=== PATIENT | female | born 2000 | race Caucasian/White ===

== ENCOUNTER 2020-11-22 16:49 | Emergency (ER) | payer SELFPAY ==
[2020-11-22 17:30] VITALS: BP 140/89; PULSE 111; RESP 16; TEMP 36.9; O2SAT 99
--- NOTE | 2020-11-22 17:36 | ECG_ITS ---
Measurements Intervals [place] Rate: 130 P: 51 AL: 154 QRS: 89 QRSD: 94 T: 17 QT: 316 QTc: 465 Interpretive Statements SINUS TACHYCARDIA BORDERLINE ST-T WAVE ABNORMALITY- INFERIOR LEADS ABNORMAL ECG Electronically Signed On 11-22-2020 19:02:53 CDT by Brian Sharma D.O.
--- NOTE | 2020-11-22 17:52 | PC.NURSE ---
pt states she is going to go home for now and see if she feels any better
== END 2020-11-22 17:54 | disposition left against medical advice (07) ==
PROVIDERS: Emergency Provider Family Medicine
DX: R55 Syncope and collapse (principal)
CPT/HCPCS: 93005; 99199

== ENCOUNTER 2022-02-23 10:06 | Outpatient (CLI) | payer BC, SELFPAY ==
[2022-02-23 11:01] LABS: Basophils Percent Auto 0.6 % (0.2-1.2); Eosinophils Absolute Auto 0.1 K/mm3 (0-0.3); Eosinophils Percent Auto 1.1 % (0-4.4); Hematocrit 43.2 % (37.0-47.0); Hemoglobin 14.6 g/dL (12.0-15.0); Immature Granulocyte Absolute 0.03 K/mm3 (0.00-0.031); Immature Granulocyte Percent A 0.5 % (0-0.5); Lymphocytes Absolute Auto 2.32 K/mm3 (0.9-3.2); Lymphocytes Percent Auto 36.9 % (18.3-44.2); Mean Corpuscular HGB Conc 33.8 g/dl (32-36); Mean Corpuscular Hemoglobin 28.2 pg (26-34); Mean Corpuscular Volume 83.4 fl (80-100); Mean Platelet Volume 9.7 fl (7.4-10.4); Monocytes Absolute Auto 0.5 K/mm3 (0.1-0.6); Monocytes Percent Auto 8.1 % (2.6-8.5); Neutrophils Absolute Auto 3.3 K/mm3 (1.3-6.7); Neutrophils Percent Auto 52.8 % (45.5-73.1); Platelet Count Result 310 k/mm3 (150-375); Red Blood Count 5.18 M/mm3 (4.2-5.4); Red Cell Distribution Width 12.9 % (11.5-14.5); White Blood Count 6.3 K/mm3 (4.5-10.0)
[2022-02-23 11:09] LABS: Hemoglobin A1C 5.2 % (<5.7)
[2022-02-23 11:13] LABS: Iron 70 ug/dL (37-170)
[2022-02-23 11:14] LABS: Cholesterol 244 mg/dL (0-200); HDL Direct 35 mg/dL; Triglycerides 243 mg/dL (<150)
[2022-02-23 11:25] LABS: Percent Iron Saturation 18 % (20-50)
[2022-02-23 11:26] LABS: LDL Cholesterol Direct 128 mg/dL
[2022-02-23 11:31] LABS: Beta HCG Quantitative < 2.39 mIU/ML
[2022-02-23 11:32] LABS: Free T4 Free Thyroxine 1.24 ng/mL (0.78-2.19)
[2022-02-27 05:01] LABS: FSH 6.3 mIU/mL (***); Progesterone 0.5 ng/mL (***); Prolactin 11.7 ng/mL (***); Triiodothyronine T3 Free 3.3 pg/mL (2.3-4.2)
[2022-02-27 11:42] LABS: DHEA-Sulfate 289 mcg/dL (51-321); Insulin Level Total 15.9 uIU/mL (<=19.6)
[2022-03-02 03:42] LABS: Estradiol, Ultrasensitive 55 pg/mL
[2022-03-02 17:03] LABS: Testosterone Free 4.9 pg/mL (0.1-6.4); Testosterone Total 32 ng/dL (2-45)
[2022-03-08 04:30] LABS: Thyroid Peroxidase Antibodies <1 IU/mL (<9)
== END 2022-02-23 10:07 | disposition home or self-care (01) ==
LOC: ANHLAB 10:08
PROVIDERS: Visit Provider Obstetrics & Gynecology
DX: E28.2 Polycystic ovarian syndrome (principal); N92.6 Irregular menstruation, unspecified
CPT/HCPCS: 36415; 80061; 82627; 82670; 82728; 83001; 83036; 83498; 83525; 83527; 83540; 83550; 84144; 84146; 84402; 84403; 84439; 84443; 84481; 84702; 85025; 86376

== ENCOUNTER 2024-08-09 12:40 | Outpatient (CLI) | payer BC, SELFPAY ==
--- OUTSIDE RECORDS SUMMARY | 2024-08-09 12:45 | XMS_ITS | Clinical Summary ---
Author Organization [facility] Address [address] [place] [address] Care Team Providers Care Reading Efficiency Course Director Name Role Phone Non-Staff, Provider Primary Care Provider Jacki gomez Allergies No known active allergies Medications lansoprazole (PREVACID SOLUTAB) 30 MG disintegrating tablet Take 1 tablet (30 mg total) by mouth daily. Active metFORMIN (GLUCOPHAGE) 500 MG tablet TAKE 1 TABLET BY MOUTH EVERY EVENING FOR 1 WEEK THEN INCREASE TO 1 TABLET BY MOUTH TWICE DAILY THEREAFTER. Active cetirizine (ZYRTEC) 10 MG tablet Take 1 tablet (10 mg total) by mouth daily. Active fish oil (OMEGA-3 FATTY ACID) 1000 MG Cap capsule Take 2 capsules (2,000 mg total) by mouth daily. Active cholecalciferol (VITAMIN D-[address]) 25 mcg Tab tablet Take by mouth daily. Active Encounters Date Type Department Care Team Description 05/28/2024 3:35 PM BUSINESS SUPERVISOR - 05/28/2024 7:59 PM BUSINESS SUPERVISOR Emergency [facility] [place] [address] Oneyda Rudd PA Musculoskeletal Problem Discharge Disposition: Home or Self Care (Routine Discharge) 05/28/2024 Travel 05/25/2024 8:12 PM BUSINESS SUPERVISOR - 05/25/2024 9:55 PM [facility] Emergency [facility] Emergency [address] [place], [place] [address] Dakota Glass PA-C Diarrhea Discharge Disposition: Home or Self Care (Routine Discharge) 05/25/2024 Travel from Last 3 Months Social History Tobacco Use Types Packs/Day Years Used Date Smoking Tobacco: Never Smokeless Tobacco: Never Tobacco Cessation:Counseling Given: Not Answered Alcohol Use Standard Drinks/Week Comments Never 0 (1 standard drink = 0.6 oz pur e alcohol) Comments No Sex and Gender Information Value Date Recorded Sex Assigned at Female 04/07/2024 10:01 PM BUSINESS SUPERVISOR Legal Sex Female 5:48 PM CDT Gender Identity Not on file Sexual Orientation Not on file Last Filed Vital Signs Vital Sign Reading Time Taken Comments Blood Pressure 104/65 05/28/2024 7:39 PM BUSINESS SUPERVISOR Pulse 71 05/28/2024 7:39 PM BUSINESS SUPERVISOR Temperature 36.4 C (97.6 F) 05/28/2024 7:39 PM BUSINESS SUPERVISOR Respiratory Rate 16 05/28/2024 7:39 PM BUSINESS SUPERVISOR Oxygen Saturation 98% 05/28/2024 7:39 PM BUSINESS SUPERVISOR Inhaled Oxygen Concentration - - Weight 121.4 kg (267 lb 10.2 oz) 05/28/2024 2:51 PM BUSINESS SUPERVISOR Height 172.7 cm (5' 8 ) 05/28/2024 2:5 1 PM BUSINESS SUPERVISOR Body Mass Index 40.69 05/28/2024 2:51 PM BUSINESS SUPERVISOR Plan of Treatment Health Maintenance Due Date Last Done Comments Cervical Cancer Screening Pap Smear (Age 21 to 29) Every 3 Years 2000 Cervical Cancer Screening 2000 Hepatitis B Vaccines (4 of 4 - 4-dose series) 03/11/2001 01/09/2001, 2000, 2000 Annual Physical 09/10/2003 HPV Vaccines (1 - 3-dose series) 09/10/2015 Chlamydia Screening Females ages 16-24 2016 Meningococcal B Vaccine (1 of 2 - Standard) 2016 Hepatitis C 2018 COVID-19 Vaccine (2 - season) 2023 07/01/2020 DTaP, Tdap and Td Vaccines (8 - Td or Tdap) 10/11/2032 10/11/2022, 10/01/2011, 11/22/2005, Additional history exists Pneumococcal Vaccine: Pediatrics (0 to 5 Years) and At-Risk Patients (6 to 49 Years) Aged Out 08/13/2002, 03/12/2001, 02/04/2001, Additional history exists No longer eligible based on patient's age to complete this topic Meningococcal Vaccine Completed 10/22/2017, 012 RSV Immunizations Under 20 Months Aged Out No longer eligible based on patient's age to complete this topic Procedures Procedure Name Priority Date/Time Associated Diagnosis Comments HC URINALYSIS AUTO W/O MICRO STAT 05/28/2024 3:47 PM BUSINESS SUPERVISOR POCT URINE (BACK OFFICE) STAT 05/28/2024 3:46 PM BUSINESS SUPERVISOR CBC W/DIFF AUTOMATED Routine 05/28/2024 3:46 PM BUSINESS SUPERVISOR THYROXINE, FREE (FT4) STAT 05/28/2024 3:46 PM BUSINESS SUPERVISOR THYROID STIM HORMONE TSH STAT 05/28/2024 3:46 PM BUSINESS SUPERVISOR MAGNESIUM STAT 05/28/2024 3:46 PM BUSINESS SUPERVISOR CK (CPK) STAT 05/28/2024 3:46 PM BUSINESS SUPERVISOR COMPREHENSIVE METABOLIC PANEL STAT 05/28/2024 3:46 PM BUSINESS SUPERVISOR COMPREHENSIVE METABOLIC PANEL STAT 05/25/2024 8:40 PM BUSINESS SUPERVISOR CBC W/DIFF AUTOMATED STAT 05/25/2024 8:40 PM BUSINESS SUPERVISOR from Last 3 Months Results * (ABNORMAL) URINALYSIS (05/28/2024 3:47 PM BUSINESS SUPERVISOR) SPECIMEN TYPE URINE CLEAN CATCH 05/28/2024 3:47 PM BUSINESS SUPERVISOR [facility] COLOR (U) COLORLESS 05/28/2024 4:02 PM BUSINESS SUPERVISOR [facility] TRANSPARENCY CLEAR 05/28/2024 4:02 PM BUSINESS SUPERVISOR [facility] SPECIFIC GRAVITY (U) 1.008 1.001 - 1.030 05/28/2024 4:02 PM [facility] U PH 5.5 5.0 - 9.0 05/28/2024 4:02 PM [facility] LEUKOCYTES (U) NEGATIVE NEGATIVE 05/28/2024 4:02 PM [facility] NITRITES NEGATIVE NEGATIVE 05/28/2024 4:02 PM [facility] PROTEIN RANDOM (U) NEGATIVE <30 MG/DL 05/28/2024 4:02 PM [facility] GLUCOSE (U) NORMAL NORMAL MG/DL 05/28/2024 4:02 PM [facility] KETONES MG/DL (U) NEGATIVE NEGATIVE MG/DL 05/28/2024 4:02 PM [facility] UROBILINOGEN NORMAL NORMAL MG/DL 05/28/2024 4:02 PM [facility] BILIRUBIN (U) NEGATIVE NEGATIVE MG/DL 05/28/2024 4:02 PM [facility] BLOOD (U) 1+(A) NEGATIVE 05/28/2024 4:02 PM [facility] MUCUS RARE /LPF 05/28/2024 4:02 PM [facility] WBC/HPF 1 <6 /HPF 05/28/2024 4:02 PM [facility] RBC/HPF 2 <6 /HPF 05/28/2024 4:02 PM [facility] BACTERIA (U) RARE(A) NONE /HPF 05/28/2024 4:02 PM [facility] SQUAMOUS EPITHELIALS RARE /HPF 05/28/2024 4:02 PM [facility] URINE SPECIMEN OBTAINED BY CLEAN CATCH PROCEDURE / Unknown 05/28/2024 3:47 PM BUSINESS SUPERVISOR Diann MARKS URINE ORDERABLES Final Result [facility] [address] [place] [address], [place] [phone] * POCT urine (05/28/2024 3:46 PM BUSINESS SUPERVISOR) URINE HCG TEST NEGATIVE Internal Control: VALID Diann MARKS POINT OF CARE TEST ORDERABLES Final Result * (ABNORMAL) COMPREHENSIVE METABOLIC PANEL (05/28/2024 3:46 PM BUSINESS SUPERVISOR) Only the most recent of2 resultswithin the time period is included. GLUCOSE 90 70 - 99 MG/DL 05/28/2024 4:32 PM BUSINESS SUPERVISOR [facility] BUN 16 7 - 18 MG/DL 05/28/2024 4:32 PM BUSINESS SUPERVISOR [facility] CREATININE S/P/B 0.89 0.55 - 1.02 MG/DL 05/28/2024 4:32 PM BUSINESS SUPERVISOR [facility] SODIUM S/P/B 135(L) 136 - 145 MMOL/L 05/28/2024 4:32 PM BUSINESS SUPERVISOR [facility] POTASSIUM S/P/B 4.4 3.5 - 5.1 MMOL/L 05/28/2024 4:32 PM BUSINESS SUPERVISOR [facility] Comment:SLIGHT HEMOLYSIS, RE SULT MAY BE AFFECTED. CHLORIDE S/P/B 105 97 - 115 MMOL/L 05/28/2024 4:32 PM BUSINESS SUPERVISOR [facility] CO2 27.0 21 - 32 MMOL/L 05/28/2024 4:32 PM [facility] CALCIUM S/P/B 9.2 8.5 - 10.1 MG/DL 05/28/2024 4:32 PM [facility] BILIRUBIN TOTAL S/P/B 0.4 0.2 - 1.2 MG/DL 05/28/2024 4:32 PM [facility] Comment: THIS ASSAY IS NOT RECOMMENDED FOR PATIENTS UNDERGOING TREATMENT WITH ELTROMBOPAG DUE TO THE POTENTIAL FOR FALSELY ELEVATED RESULTS. TOTAL PROTEIN S/P/B 8.2 6.4 - 8.2 G/DL 05/28/2024 4:32 PM [facility] ALBUMIN S/P/B 4.0 3.4 - 5.0 G/DL 05/28/2024 4:32 PM [facility] AST 26 15 - 37 U/L 05/28/2024 4:32 PM [facility] Comment:SLIGHT HEMOLYSIS, RE SULT MAY BE AFFECTED. ALT 26 14 - 55 U/L 05/28/2024 4:32 PM [facility] ALKALINE PHOSPHATASE S/P/B 88 50 - 136 U/L 05/28/2024 4:32 PM [facility] ANION GAP 3.0 2 - 10 MMOL/L 05/28/2024 4:32 PM [facility] BUN CREATININE RATIO 17.9 6 - 26 05/28/2024 4:32 PM [facility] A/G RATIO 1.0 1.0 - 2.0 RATIO 05/28/2024 4:32 PM [facility] GFR ESTIMATE >90 >90 ML/MIN/1.7 3 M2 05/28/2024 4:32 PM [facility] Comment: NOTE: eGFR is not calculated for patients <18 years of age or gender unknown. This is an estimated GFR calculation using the new CKD EPI creatinine equation without race and so does not require a correction factor for race. This estimated GFR should not be used for calculating drug doses. 05/28/2024 3:46 PM BUSINESS SUPERVISOR Diann MARKS LABORATORY Final Result [facility] [address] [place] [address], [place] [phone] * CBC W/DIFF AUTOMATED (05/28/2024 3:46 PM BUSINESS SUPERVISOR) Only the most recent of2 resultswithin the time period is included. Pathologist [facility] WBC 8.02 4.50 - 11.00 x10'3/uL 05/28/2024 5:55 PM [facility] RBC 5.22 4.20 - 5.40 x10'6/uL 05/28/2024 5:55 PM [facility] HGB 14.7 12.0 - 16.0 G/DL 05/28/2024 5:55 PM [facility] HCT 44.0 38.0 - 48.0 % 05/28/2024 5:55 PM [facility] MCV 84.3 81.0 - 99.0 FL 05/28/2024 5:55 PM [facility] MCH 28.2 27.0 - 31.0 PG 05/28/2024 5:55 PM [facility] MCHC 33.4 32.0 - 36.0 G/DL 05/28/2024 5:55 PM [facility] RDW 12.4 11.5 - 14.5 % 05/28/2024 5:55 PM [facility] PLT 344 130 - 400 x10'3/uL 05/28/2024 5:55 PM [facility] MPV 9.9 9.3 - 12.2 FL 05/28/2024 5:55 PM [facility] CBC COMMENT AUTOMATED RBC MORPHOLOGY AND PLATELET EVALUATION NORMAL 05/28/2024 5:55 PM [facility] NEUTROPHILS % 64.3 % 05/28/2024 5:55 PM [facility] LYMPHOCYTES % 27.1 % 05/28/2024 5:55 PM [facility] MONOCYTES % 6.9 % 05/28/2024 5:55 PM [facility] EOSINOPHILS 0.6 % 05/28/2024 5:55 PM [facility] BASOPHILS 0.6 % 05/28/2024 5:55 PM [facility] IMMATURE GRANS % 0.5 % 05/29/19 5:55 PM [facility] NRBC % 0.0 % 05/28/2024 5:55 PM [facility] ABS. NEUTROPHILS 5.16 1.80 - 7.70 x10'3/uL 05/28/2024 5:55 PM [facility] ABS. LYMPHOCYTES 2.17 1.00 - 4.80 x10'3/uL 05/28/2024 5:55 PM [facility] ABS. MONOCYTES 0.55 0.24 - 0.86 x10'3/uL 05/28/2024 5:55 PM [facility] ABS. EOSINOPHILS 0.05 0.04 - 0.36 x10'3/uL 05/28/2024 5:55 PM [facility] ABS. BASOPHILS 0.05 0.01 - 0.08 x10'3/uL 05/28/2024 5:55 PM [facility] ABS. IMMATURE GRANULOCYTES 0.04 0.00 - 0.49 x10'3/uL 05/28/2024 5:55 PM [facility] ABS. NUCLEATED RBC'S 0.00 0.00 - 0.01 x10'3/uL 05/28/2024 5:55 PM BUSINESS SUPERVISOR [facility] 05/28/2024 3:46 PM BUSINESS SUPERVISOR Diann MARKS LABORATORY Final Result Performing Organization Address City/[facility]/ZIP Co de Phone Number [facility] [address] [place] [address], [place] [phone] * THYROXINE, FREE (FT4) (05/28/2024 3:46 PM BUSINESS SUPERVISOR) FREE T4 1.25 0.76 - 1.46 NG/DL 05/28/2024 4:32 PM BUSINESS SUPERVISOR [facility] 05/28/2024 3:46 PM BUSINESS SUPERVISOR Diann MARKS LABORATORY Final Result Performing Organization Address [facility] [[email or web address]] Co de Phone Number [facility] [address] [place] [address], [place] [phone] * THYROID STIM HORMONE TSH (05/28/2024 3:46 PM BUSINESS SUPERVISOR) TSH 1.520 0.358 - 3.74 uIU/ML 05/28/2024 4:32 PM BUSINESS SUPERVISOR [facility] Comment: HIGH DOSES OF BIOTIN MAY INTERFERE WITH THIS TEST RESULT. CORRELATION TO CLINICAL HISTORY AND PRESENTATION RECOMMENDED. 05/28/2024 3:46 PM BUSINESS SUPERVISOR Diann MARKS LABORATORY Final Result Performing Organization Address City/[facility] [[email or web address]] Co de Phone Number [facility] [address] [place] [address], [place] [phone] * MAGNESIUM (05/28/2024 3:46 PM BUSINESS SUPERVISOR) MAGNESIUM 2.3 1.8 - 2.4 MG/DL 05/28/2024 4:32 PM BUSINESS SUPERVISOR [facility] Comment:SLIGHT HEMOLYSIS, RE SULT MAY BE AFFECTED. 05/28/2024 3:46 PM BUSINESS SUPERVISOR [place] Diann MARKS LABORATORY Final Result [facility] [address] [place] [address], [place] [phone] * CK (CPK) (05/28/2024 3:46 PM BUSINESS SUPERVISOR) CPK 183 21 - 215 U/L 05/28/2024 4:32 PM BUSINESS SUPERVISOR [facility] 05/28/2024 3:46 PM BUSINESS SUPERVISOR Diann MARKS LABORATORY Final Result Performing Organization Address City/State/[facility] [[email or web address]] Co de Phone Number [facility] [address] [place] [address], [place] [phone] from Last 3 Months Insurance [facility] Care Teams Reading Efficiency Course Director Relationship Specialty Start Date End Date Non-Staff, Provider PCP - General UNKNOWN PHYSICIAN SPECIALTY 12/16/22
--- OUTSIDE RECORDS SUMMARY | 2024-08-09 12:45 | XMS_ITS | Clinical Summary ---
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 Name Role Phone Denis Nava MD Primary Care Provider [phone] Gordo Rivera MD Unavailable [phone] Allergies No known active allergies Medications lansoprazole (PREVACID) 30 mg capsule Take by mouth daily 05/25/2021 Active loratadine (CLARITIN) 10 mg tablet Take 1 tablet (10 mg total) by mouth daily as needed Active ibuprofen (ADVIL,MOTRIN) 200 mg tab/cap Take 2 tablet/capsul e (400 mg total) by mouth every 6 (six) hours as needed Active cetirizine (ZyrTEC) 10 mg tablet Take 1 tablet (10 mg total) by mouth daily Active cholecalciferol 25 mcg (1,000 unit) tablet Take by mouth daily Active metFORMIN (GLUCOPHAGE) 500 mg tablet TAKE 1 TABLET BY MOUTH EVERY EVENING FOR 1 WEEK THEN INCREASE TO 1 TABLET BY MOUTH TWICE DAILY THEREAFTER. 10/02/2022 Active Active Problems Problem Noted Date Diagnosed Date Viral gastroenteritis 06/19/2024 Assessment & Plan (06/19/2024 5:29 PM CDT): Symptoms have improved. Continue to slowly resume regular diet. If any worsening muscle fatigue or brain fog recommend in person evaluation for possible labs. Patient verbalized understanding and agreed to plan of care at this time. Encounter for medical examination to establish c are 07/16/2021 Assessment & Plan (07/16/2021 2:01 PM CDT): A(n) initial well visit to establish care has been performed today. Margarette Cameron is not up to date on screening tests. She is in need of GC Chlamydia- we will attempt to get records from prior PCP at home. She is not up to date on needed preventative vaccinations; She is in need of Tdap/Td, HPV and Covid-19 (2 of 2). She declined HPV, and we will try to get records from home Paronychia of toe of left foot due to ingrown to enail 07/16/2021 Encounters Date Type Department Care Team Description 07/27/2024 1:46 PM CDT - 07/27/2024 11:59 PM CDT Hospital Encounter [facility] [address] [place] [address] Diarrhea, unspecified type Discharge Disposition: Discharge to home or self care 07/06/2024 11:08 PM CDT - 07/06/2024 11:50 PM CDT Emergency [facility] [address] [place] [address] Dysphagia, unspecified type (Primary Dx) Discharge Disposition: Discharge to home or self care 06/20/2024 12:15 AM CDT Telemedicine [facility] [address] [place] [phone] Poornima Manley, CHRIST Viral illness (Primary Dx) 06/20/2024 Patient Self-Triage [facility] [address] [place] [phone] Mychart, Generic Provider 06/19/2024 5:30 PM CDT Telemedicine [facility] [address] [place] [phone] Brooke Benjamin, CHRIST Viral gastroenteritis (Primary Dx) 06/19/2024 Patient Self-Triage [facility] [address] [place] [phone] Mychart, Generic Provider 05/25/2024 Telephone [facility] Care at [address] [phone] Zuleika Turner NP from Last 3 Months Immunizations Immunization Administration Dates Next Due DTaP 5 Pertussis 11/22/2005, 3,03/12/2001, 001,2000 Hep B, Unspecified 01/09/2001,2000, 001 HiB 11/16/2001, 1,01/09/2001, 001 IPV 11/22/2005, 3,01/09/2001, 001 Influenza, Unspecified 03/24/2021(Deferr ed: Patient Refused),03/24/2020(Deferred: Patient Refused) MMR 11/22/2005,11/16/2001 Meningococcal ACWY, Unspecified 10/22/2017,09/30 Meningococcal MCV4P (Menactra) 10/22/2017 Pneumococcal Conjugate, Unspecified 07/23,03/12/2001,02/04/2001, 001 Tdap 10/01/2011 Varicella 10/01/2011,11/16/2001 Surgical History Surgery Date Site/Laterality Comments WISDOM TOOTH EXTRACTION 03/24/2013 - 03/23/2014 ESOPHAGOSCOPY / EGD 03/24/2021 - 03/23/2022 upper Medical History Medical History Date Comments PCOS (polycystic ovarian syndrome) IBS (irritable bowel syndrome) Obesity Family History Medical History Relation Name Comments Gout Father Pancreatic cancer Maternal Grandfather Coronary artery disease Maternal Grandmother Hypertension Maternal Grandmother No Known Problems Mother No Known Problems Paternal Grandfather Heart attack Paternal Grandmother Irritable bowel syndrome Paternal Half-Sister Diabetes Neg Hx Relation Name Status Comments Father Alive Maternal Grandfather Maternal Grandmother Mother Alive Paternal Grandfather Paternal Grandmother Paternal Half-Sister Alive Social History Tobacco Use Types Packs/Day Years Used Date Smoking Tobacco: Never Smokeless Tobacco: Never AUDIT-C Answer Date Recorded Q1: How often do you have a drink containing alc ohol? Monthly or less 07/16/2021 Q2: How many drinks containi ng alcohol do you have on a typical day when you are drinking? 1 or 2 07/16/2021 Q3: How often do you have si x or more drinks on one occasion? Never 07/16/2021 PHQ-2 Answer Date Recorded PHQ-2 Total Score (If total score is 3 or more points, staff should administer the PHQ-9) 0 07/16/2021 Personal Safety Answer Date Recorded Have you ever been in or are you currently in a harmful physical or emotional relationship or is someone making you feel afraid or unsafe? Denies 07/06/2024 Education Answer Date Recorded What is the highest level of school you have completed or the highest degree you have received? 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 Not on file Not on file Not o n file Obstetrics History Last Filed Vital Signs Vital Sign Reading Time Taken Comments Blood Pressure 127/79 07/06/2024 10:00 PM CDT Pulse 77 07/06/2024 10:00 PM CDT Temperature 36.7 C (98.1 F) 07/06/2024 7:17 PM CDT Respiratory Rate 16 07/06/2024 10:00 PM CDT Oxygen Saturation 99% 07/06/2024 10:00 PM CDT Inhaled Oxygen Concentration - - Weight 120.2 kg (265 lb) 07/06/2024 7:50 PM CDT Height 172.7 cm (5' 8 ) 07/06/2024 7:50 PM CDT Body Mass Index 40.29 07/06/2024 7:50 PM CDT Plan of Treatment Health Maintenance Due Date Last Done Comments Cervical Cancer Screening 2000 Hepatitis C Screening 2000 HPV Vaccines (1 - 3-dose series) 09/10/2015 Meningococcal B Vaccine (1 o f 2 - Standard) 2016 DTaP/Tdap/Td Vaccine (7 - Td or Tdap) 09/30/2021 10/01/2011, 11/22/2005, 08/13/2002, Additional history exists Chlamydia and Gonorrhea (GC/ CT) Screening 07/16/2022 07/16/2021 Depression Screening 07/16/2022 07/16/2021 Regular Well Visit/Exam 18-64 07/16/2022 07/16/2021 Covid-19 Vaccine (2 2023-2 5 season) 2023 07/01/2020 Influenza Vaccine (Season Ended) 2024 Hepatitis B Screening Completed 01/09/2001 , 2000, 2000 Pneumococcal vaccine <65 Completed 003, 03/12/2001, 02/04/2001, Additional history exists Varicella Vaccines Completed 10/01/2011, 11/16/2001 Procedures Procedure Name Priority Date/Time Associated Diagnosis Comments CT ABDOMEN PELVIS W CONTRAST Schedule Routine, Read Routine (OP Routine) 07/27/2024 2:49 PM CDT Diarrhea, unspecified type CT CHEST WO CONTRAST ED 07/06/2024 9:[address] SOFT TISSUE NECK WO CONTRAST ED 07/06/2024 9:45 PM CDT EGFR STAT 07/06/2024 9:00 PM CDT DIFFERENTIAL AUTO STAT 07/06/2024 9:0 0 PM CDT COMPREHENSIVE METABOLIC PANEL STAT 07/06/2024 9:00 PM CDT CBC WITH AUTO DIFFERENTIAL STAT 07/06/2024 9:00 PM CDT POCT HCG, URINE STAT 07/06/2024 8:49 PM CDT N. GONORRHOEAE/C. TRACHOMATIS AMPLIFICATION Routine 07/16/2021 2:14 PM CDT Paronychia of toe of left foot due to ingrown toenail from Last 3 Months or Most Recently Relevant to Health Maintenance Results * CT Abdomen Pelvis W Contrast (07/27/2024 2:49 PM CDT) Anatomical Region Laterality Modality Body N/A Computed Tomogra phy 08/06/2024 11:0 2 AM CDT Narrative 08/06/2024 11:05 AM CDT EXAM DESCRIPTION: CT ABDOMEN PELVIS W CONTRAST REASON FOR STUDY: R19.7 Patient complains of constipation at least 10 years, no prior surgical history TECHNIQUE: CT scan of the abdomen and pelvis performed with intravenous and with oral contrast using helical scanning technique with dynamic intravenous contrast injection. Reconstructed coronal and sagittal MPR images reviewed. All images stored on PACS. Automated exposure control was used as a dose optimization technique for this examination. CONTRAST TYPE/DOSE: 100mL of IOVERSOL 350 MG IODINE/ML INTRAVENOUS SYRINGE injected via intravenous COMPARISON: None. FINDINGS: LOWER CHEST: Lung bases are predominantly clear. No pleural effusion. LIVER: Mild hepatic steatosis. There is a low-density lesion right hepatic lobe 0.8 cm (series 2, image 43). Portal and hepatic veins are patent. GALLBLADDER: No gallstones or overt inflammatory change. BILE DUCTS: No biliary ductal dilation. SPLEEN: Spleen size normal. No focal splenic lesion. PANCREAS: No pancreatic mass or inflammatory change. ADRENALS: Normal KIDNEYS/URINARY TRACT: No right renal calculus. No left renal calculus. No ureteral calculus. No hydronephrosis or hydroureter. No urinary bladder calculus or mass. GI: No evidence of bowel obstruction. Mild colonic diverticulosis. The terminal ileum and appendix are normal. The stomach and duodenum are normal. No pneumatosis is seen. PERITONEUM: No ascites or free air. No mesenteric mass. There are few small lymph nodes which are not pathologically enlarged. RETROPERITONEUM: No retroperitoneal mass or lymphadenopathy. REPRODUCTIVE: No significant abnormalities are identified. There is heterogeneous low-density along the endometrium. VASCULATURE: Abdominal aorta is nonaneurysmal. MUSCULOSKELETAL: Bone windows demonstrate no acute or aggressive osseous abnormality. OTHER: No other abnormality. IMPRESSION: No evidence of an acute abnormality of the abdomen and pelvis. Mild hepatic steatosis. Low-density lesion right hepatic lobe 0.8 cm too small to characterize but possibly a cyst or may be hemangioma. Mild colonic diverticulosis. THIS IS AN ELECTRONICALLY VERIFIED FINAL REPORT 08/06/2024 11:05 AM - Electronically signed by Orlin Anderson M.D. T: Report ID: [id number] Reading Location: [place] [id number] Procedure Note Orlin Anderson Jr., MD - 08/06/2024 EXAM DESCRIPTION: CT ABDOMEN PELVIS W CONTRAST REASON FOR STUDY: R19.7 Patient complains of constipation at least 10 years, no prior surgicalhistory TECHNIQUE: CT scan of the abdomen and pelvis performed with intravenousand with oral contrast using helical scanning technique with dynamicintravenous contrast injection. Reconstructed coronal and sagittal MPR imagesreviewed. All images stored on PACS. Automated exposure control was used as a dose optimization technique for this examination. CONTRAST TYPE/DOSE: 100mL of IOVERSOL 350 MG IODINE/ML INTRAVENOUSSYRINGE injected via intravenous COMPARISON: None. FINDINGS: LOWER CHEST: Lung bases are predominantly clear. No pleural effusion. LIVER: Mild hepatic steatosis. There is a low-density lesion righthepatic lobe 0.8 cm (series 2, image 43). Portal and hepatic veins are patent. GALLBLADDER: No gallstones or overt inflammatory change. BILE DUCTS: No biliary ductal dilation. SPLEEN: Spleen size normal. No focal splenic lesion. PANCREAS: No pancreatic mass or inflammatory change. ADRENALS: Normal KIDNEYS/URINARY TRACT: No right renal calculus. No left renal calculus.No ureteral calculus. No hydronephrosis or hydroureter. No urinary bladder calculus or mass. GI: No evidence of bowel obstruction. Mild colonic diverticulosis. The terminal ileum and appendix are normal. The stomach and duodenum arenormal. No pneumatosis is seen. PERITONEUM: No ascites or free air. No mesenteric mass. There are few small lymph nodes which are not pathologically enlarged. RETROPERITONEUM: No retroperitoneal mass or lymphadenopathy. REPRODUCTIVE: No significant abnormalities are identified. There is heterogeneous low-density along the endometrium. VASCULATURE: Abdominal aorta is nonaneurysmal. MUSCULOSKELETAL: Bone windows demonstrate no acute or aggressive osseous abnormality. OTHER: No other abnormality. IMPRESSION: No evidence of an acute abnormality of the abdomen and pelvis. Mild hepatic steatosis. Low-density lesion right hepatic lobe 0.8 cm too small to characterizebut possibly a cyst or may be hemangioma. Mild colonic diverticulosis. THIS IS AN ELECTRONICALLY VERIFIED FINAL REPORT 08/06/2024 11:05 AM - Electronically signed by Orlin Anderson M.D. T: Report ID: [id number] Reading Location: [place] [address] Carlos Londono MD IMG CT PROCEDURES Final Result * CT Chest WO Contrast (07/06/2024 9:45 PM CDT) Anatomical Region Laterality Modality Body N/A Computed Tomogra phy 07/06/2024 10:4 3 PM CDT Narrative 07/06/2024 10:56 PM CDT EXAM DESCRIPTION: CT CHEST WO CONTRAST REASON FOR STUDY: Foreign body Patient presents to ED with co food bolus. Patient states that she ate baby carrot at around 6PM today and feels like something got stuck in her throat causing discomfort. Denies SOB. TECHNIQUE: CT scan of the chest performed without intravenous contrast using helical scanning technique. Reconstructed coronal and sagittal MPR images reviewed. All images stored on PACS. Automated exposure control was used as a dose optimization technique for this examination. COMPARISON: None FINDINGS: The sensitivity for detection of solid visceral lesions is diminished without the use of intravenous contrast. LUNGS: No nodules or masses. No pneumonia. PLEURA: No effusion. No pneumothorax. MEDIASTINUM/CATY: No identified masses or abnormal nodes. HEART: Heart size is normal with no pericardial effusion. CORONARY ARTERY CALCIFICATION: None VASCULATURE: No thoracic aortic aneurysm. AXILLA: No adenopathy. CHEST WALL: No masses. No subcutaneous air. HARDWARE/LINES/TUBES: None. UPPER ABDOMEN: No significant abnormality. MUSCULOSKELETAL: No significant abnormality. OTHER: No CT evidence of foreign body. IMPRESSION: No acute pulmonary process. No CT evidence of foreign body. THIS IS AN ELECTRONICALLY VERIFIED FINAL REPORT 07/06/2024 10:56 PM - Electronically signed by Clint Garcia M.D. KT T: Report ID: [id number] Reading Location: [id number] Procedure Note Clint Garcia MD - 07/06/2024 EXAM DESCRIPTION: CT CHEST WO CONTRAST REASON FOR STUDY: Foreign body Patient presents to ED with co food bolus. Patient states that she atebaby carrot at around 6PM today and feels like something got stuck in herthroat causing discomfort. Denies SOB. TECHNIQUE: CT scan of the chest performed without intravenous contrastusing helical scanning technique. Reconstructed coronal and sagittal MPR images reviewed. All images stored on PACS. Automated exposure control was usedas a dose optimization technique for this examination. COMPARISON: None FINDINGS: The sensitivity for detection of solid visceral lesions is diminished without the use of intravenous contrast. LUNGS: No nodules or masses. No pneumonia. PLEURA: No effusion. No pneumothorax. MEDIASTINUM/CATY: No identified masses or abnormal nodes. HEART: Heart size is normal with no pericardial effusion. CORONARY ARTERY CALCIFICATION: None VASCULATURE: No thoracic aortic aneurysm. AXILLA: No adenopathy. CHEST WALL: No masses. No subcutaneous air. HARDWARE/LINES/TUBES: None. UPPER ABDOMEN: No significant abnormality. MUSCULOSKELETAL: No significant abnormality. OTHER: No CT evidence of foreign body. IMPRESSION: No acute pulmonary process. No CT evidence of foreign body. THIS IS AN ELECTRONICALLY VERIFIED FINAL REPORT 07/06/2024 10:56 PM - Electronically signed by Clint Garcia M.D. KT T: Report ID: [id number] Reading Location: [place] [address] PROCEDURES Final Resu lt * CT Neck Soft Tissue WO Contrast (07/06/2024 9:45 PM CDT) Anatomical Region Laterality Modality Head and Neck N/A Computed Tomogra phy 07/06/2024 10:5 6 PM CDT Narrative 07/06/2024 10:59 PM CDT EXAM DESCRIPTION: CT SOFT TISSUE NECK WO CONTRAST REASON FOR STUDY: Foreign body Patient presents to ED with co food bolus. Patient states that she ate baby carrot at around 6PM today and feels like something got stuck in her throat causing discomfort. Denies SOB. TECHNIQUE: Axial images from skull base through lung apices. Reconstructed MPR images reviewed. All images stored on PACS. The sensitivity for detection of abnormalities is reduced without the use of intravenous contrast. Automated exposure control was used as a dose optimization technique for this examination. COMPARISON: None FINDINGS: SOFT TISSUE: No mass, edema or inflammatory change. ORAL CAVITY/FLOOR OF MOUTH, PHARYNX, LARYNX, HYPOPHARYNX: No abnormal findings. LYMPHADENOPATHY: No adenopathy. MAJOR SALIVARY GLANDS: No solid or cystic masses. No inflammatory changes. THYROID: Normal size. No nodules greater than 1 cm. INTRACRANIAL/SKULL BASE/INCLUDED ORBITS: Limited intracranial evaluation. No abnormal findings. PARANASAL SINUSES: Well-aerated. CERVICAL SPINE: No significant abnormalities. LUNG APICES: Clear. OTHER: No CT evidence of foreign body. IMPRESSION: Unremarkable CT soft tissue neck. No CT evidence of foreign body. THIS IS AN ELECTRONICALLY VERIFIED FINAL REPORT 07/06/2024 10:59 PM - Electronically signed by Clint Garcia M.D. KT T: Report ID: [id number] Reading Location: [place] [address] Procedure Note Clint Garcia MD - 07/06/2024 EXAM DESCRIPTION: CT SOFT TISSUE NECK WO CONTRAST REASON FOR STUDY: Foreign body Patient presents to ED with co food bolus. Patient states that she atebaby carrot at around 6PM today and feels like something got stuck in herthroat causing discomfort. Denies SOB. TECHNIQUE: Axial images from skull base through lung apices.Reconstructed MPR images reviewed. All images stored on PACS. The sensitivity fordetection of abnormalities is reduced without the use of intravenous contrast. Automated exposure control was used as a dose optimization technique forthis examination. COMPARISON: None FINDINGS: SOFT TISSUE: No mass, edema or inflammatory change. ORAL CAVITY/FLOOR OF MOUTH, PHARYNX, LARYNX, HYPOPHARYNX: No abnormal findings. LYMPHADENOPATHY: No adenopathy. MAJOR SALIVARY GLANDS: No solid or cystic masses. No inflammatorychanges. THYROID: Normal size. No nodules greater than 1 cm. INTRACRANIAL/SKULL BASE/INCLUDED ORBITS: Limited intracranialevaluation. No abnormal findings. PARANASAL SINUSES: Well-aerated. CERVICAL SPINE: No significant abnormalities. LUNG APICES: Clear. OTHER: No CT evidence of foreign body. IMPRESSION: Unremarkable CT soft tissue neck. No CT evidence offoreign body. THIS IS AN ELECTRONICALLY VERIFIED FINAL REPORT 07/06/2024 10:59 PM - Electronically signed by Clint Garcia M.D. KT T: Report ID: [id number] Reading Location: [id number] [place] Paul MARKS IMG CT PROCEDURES Final Resu lt * eGFR (07/06/2024 9:00 PM CDT) Pathologist [facility] eGFR >90 >=60 mL/min/1. 73 m2 Comment: Interpretive Data Reference Interval Normal >/= 90 mL/min/1.73m2 Mildly decreased* 60 - 89 mL/min/1.73m2 Mildly to moderately decreased 45 - 59 mL/min/1.73m2 Moderately to severely decreased 30 - 44 mL/min/1.73m2 Severely decreased 15 - 29 mL/min/1.73m2 Kidney Failure < 15 mL/min/1.73m2 *Relative to young adult level Estimated glomerular filtration rate is determined by the 2020 CKD-EPI equation recommended by the National Kid[employer] (A Unifying Approach to GFR Estimation: Recommendations of the NKF-ASK Task Force on Reassessing the Inclusion of Race in Diagnosing Kidney Disease, JASN 2020). The CKD-EPI equation should not be used for patients with unstable renal function and has not been validated in children and those over 70. Current interpretive data was last reviewed 2021. Blood 07/06/2024 9:00 PM CDT 07/06/2024 9:03 PM CDT Angie Espinal NP LAB BLOOD ORDERABLES Fin al Result [facility] [address] [facility] [place] [address] * Differential, auto (07/06/2024 9:00 PM CDT) Pathologist [facility] Neutrophil abs 4.56 1.50 - 6.50 K/cumm Imm gran abs 0.02 0.00 - 0.10 K/cumm [facility] Lymphocyte abs 2.88 0.80 - 3.30 K/cumm [facility] Monocyte abs 0.65 0.20 - 0.80 K/cumm [facility] Eosinophil abs 0.11 0.00 - 0.50 K/cumm [facility] Basophil abs 0.04 0.00 - 0.10 K/cumm [facility] Neutrophil pct 55.2 % [facility] Comment: Interpretive Data Percent cell count reference ranges are not reported, since discordance with absolute values may lead to misinterpretation of CBC data. Current Interpretive Data was last revised on 2017. Imm gran pct 0.2 % [facility] Comment: Interpretive Data Percent cell count reference ranges are not reported, since discordance with absolute values may lead to misinterpretation of CBC data. Current Interpretive Data was last revised on 2017. Lymphocyte pct 34.9 % [facility] Comment: Interpretive Data Percent cell count reference ranges are not reported, since discordance with absolute values may lead to misinterpretation of CBC data. Current Interpretive Data was last revised on 2017. Monocyte pct 7.9 % [facility] Comment: Interpretive Data Percent cell count reference ranges are not reported, since discordance with absolute values may lead to misinterpretation of CBC data. Current Interpretive Data was last revised on 2017. Eosinophil pct 1.3 % [facility] Comment: Interpretive Data Percent cell count reference ranges are not reported, since discordance with absolute values may lead to misinterpretation of CBC data. Current Interpretive Data was last revised on 2017. Basophil pct 0.5 % [facility] Comment: Interpretive Data Percent cell count reference ranges are not reported, since discordance with absolute values may lead to misinterpretation of CBC data. Current Interpretive Data was last revised on 2017. Blood 07/06/2024 9:00 PM CDT 07/06/2024 9:03 PM CDT us Angie Espinal NP LAB BLOOD ORDERABLES Fin al Result [facility] [address] [facility] [place] [address] * CBC with auto differential (07/06/2024 9:00 PM CDT) WBC 8.26 3.80 - 9.90 K/cumm Hgb 13.6 11.9 - 15.5 g/dL [facility] Hct 40.4 35.6 - 45.5 % [facility] Plt 266 150 - 400 K/cumm [facility] MPV 9.6 9.1 - 12.3 fL [facility] RBC 4.93 3.90 - 5.20 M/cumm [facility] MCV 81.9 81.3 - 96.4 fL [facility] MCH 27.6 27.1 - 33.3 pg [facility] MCHC 33.7 32.3 - 35.7 g/dL [facility] RDW CV 12.6 11.1 - 14.9 % [facility] RDW SD 37.6 35.7 - 48.1 fL [facility] NRBC abs 0.00 0.00 - 0.01 K/cumm [facility] Blood 07/06/2024 9:00 PM CDT 07/06/2024 9:03 PM CDT Angie Espinal ACCOUNTS PAYABLE ADMINISTRATOR LAB BLOOD ORDERABLES Fin al Result Performing Organization Address City/State/RUST Co de Phone Number [facility] [address] [facility] [place] [address] * Comprehensive metabolic panel (07/06/2024 9:00 PM CDT) Sodium 139 135 - 145 mmol/L Potassium, pl 4.0 3.3 - 4.9 mmol/L [facility] Comment:Hemolyzed; Potassium value may be falsely elevated by as much as 1.0 mmol/L. Suggest redraw and reanalysis. Chloride 104 97 - 110 mmol/L [facility] CO2 23 22 - 32 mmol/L [facility] Anion gap 12 2 - 15 mmol/L [facility] BUN 13 6 - 25 mg/dL [facility] [facility] Creatinine 0.75 0.60 - 1.10 mg/dL [facility] Glucose 93 70 - 199 mg/dL [facility] Comment: Interpretive Data Fasting glucose >/= 126 mg/dl is diagnostic for diabetes. Fasting is defined as no caloric intake for at least 8 hours. Fasting glucose between 100 mg/dl to 125 mg/dl is diagnostic of prediabetes. In a patient with classic symptoms of hyperglycemia or hyperglycemic crisis, a random glucose >/= 200 mg/dl is diagnostic for diabetes. In the absence of unequivocal hyperglycemia, results should be confirmed by repeat testing. The classification and Diagnosis of Diabetes Diabetes Care 2021; 46: S19-S40. Current interpretive data was last revised 2022. Calcium 9.3 8.5 - 10.3 mg/dL [facility] Bilirubin, total 0.2 0.1 - 1.2 mg/dL [facility] Protein, pl 7.3 6.5 - 8.5 g/dL [facility] Albumin 4.2 3.5 - 5.0 g/dL [facility] Alk phos 85 40 - 130 Units/L [facility] ALT 15 7 - 45 Units/L [facility] AST 20 10 - 45 Units/L [facility] Blood 07/06/2024 9:00 PM CDT 07/06/2024 9:03 PM CDT Angie Espinal NP LAB BLOOD ORDERABLES Fin al Result [place] [id number] [facility] [place] [address] * POCT hCG, urine (07/06/2024 8:49 PM CDT) Pathologist [facility] HCG, ur, POC Negative Negative Lot Number [id number] QC Backgroud Clear Acceptable QC Control Line Acceptable Urine 07/06/2024 8:49 PM CDT Angie Espinal NP POINT OF CARE TEST ORDER MICHELLE Final Result * N. gonorrhoeae/C. trachomatis Amplification Urine (07/16/2021 2:14 PM CDT) Pathologist [facility] C. trachomatis Not detected Not detected [facility] N. gonorrhoeae Not detected Not detected [facility] Comment: Testing performed by the [facility]. This assay detects Chlamydia trachomatis and Neisseria gonorrhoeae by nucleic acid amplification testing (NAAT). This test is approved by the [place] Food and Drug Administration and the performance characteristics have been verified by the laboratory. The performance characteristics of this test have not been evaluated in women or individuals less than 16 years of age. 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
--- OUTSIDE RECORDS SUMMARY | 2024-08-09 12:45 | XMS_ITS | Referral Summary ---
Author Organization [address] Address [address] [place] [phone] Care Team Providers Care Technician Terminal And Repeater Name Role Phone Denis Nava MD Primary Care Provider [phone] Gordo Rivera MD Unavailable [phone] Encounters Date Type Department Care Team Description 07/27/2024 1:46 PM CDT - 07/27/2024 11:59 PM CDT Hospital Encounter [facility] [place] [address] [place] [address] Diarrhea, unspecified type Discharge Disposition: Discharge to home or self care 07/06/2024 11:08 PM CDT - 07/06/2024 11:50 PM CDT Emergency [facility] [address] [place] [address] Dysphagia, unspecified type (Primary Dx) Discharge Disposition: Discharge to home or self care 06/20/2024 12:15 AM CDT Telemedicine [facility] [address] [place] [phone] Poornima Manley NP Viral illness (Primary Dx) 06/20/2024 Patient Self-Triage [facility] HealthCare/ Physicians [address] [place] [phone] Michellehart, Generic Provider 06/19/2024 5:30 PM CDT Telemedicine [facility] [address] [phone] Brooke Benjamin NP Viral gastroenteritis (Primary Dx) 06/19/2024 Patient Self-Triage [facility] [address] [place] [address] Trae Lin Provider 05/25/2024 Telephone [facility] at [address] [phone] Zuleika Turner, LIQUOR BLENDER from Last 3 Months Allergies No known active allergies Medications lansoprazole [...] foot due to ingrown to enail 07/16/2021 Immunizations Immunization Administration Dates Next Due DTaP 5 Pertussis 11/22/2005, 3,03/12/2001, 001,2000 Hep B, Unspecified 01/09/2001,2000, 001 HiB 11/16/2001, 1,01/09/2001, 001 IPV 11/22/2005, 3,01/09/2001, 001 Influenza, Unspecified 03/24/2021(Deferr ed: Patient Refused),03/24/2020(Deferred: Patient Refused) MMR 11/22/2005,11/16/2001 Meningococcal ACWY, Unspecified 10/22/2017,09/30 Meningococcal MCV4P (Menactra) 10/22/2017 Pneumococcal Conjugate, Unspecified 07/23,03/12/2001,02/04/2001, 001 Tdap 10/01/2011 Varicella 10/01/2011,11/16/2001 Social History Tobacco Use Types Packs/Day Years [...] Not on file Not o n file Last Filed Vital Signs Vital Sign [...] 07/06/2024 7:50 PM CDT Plan of Treatment Not on file Procedures Procedure Name Priority Date/Time Associated Diagnosis [...] by Orlin Anderson M.D. T: Report ID: [id number] Reading Location: [place] [address] Procedure Note Orlin Anderson Jr., MD - [...] AM - Electronically signed by Orlin Anderson M.D., CH T: Report ID: [id number] Reading Location: [place] [address] Carlos Londono MD IMG CT PROCEDURES Final [...] Clint Garcia M.D. KT T: Report ID: [id number] Reading Location: [id number] Procedure Note Clint Garcia MD - 07/06/2024 [...] Clint Garcia M.D. KT T: Report ID: [id number] Reading Location: [id number] Paul MARKS IMG CT PROCEDURES Final Resu [...] Clint Garcia M.D. KT T: Report ID: [id number] Reading Location: [place] [address] Procedure Note Clint Garcia MD - 07/06/2024 [...] Clint Garcia M.D. KT T: Report ID: [id number] Reading Location: [place] [address] us [address]KS IMG CT PROCEDURES Final Resu lt * eGFR (07/06/2024 9:00 PM CDT) eGFR >90 >=60 mL/min/1. 73 m2 Comment: [...] of Race in Diagnosing Kidney Disease, JASN 202). The CKD-EPI equation should not be used for patients with unstable renal function and has not been validated in children and those over 70. Current interpretive data was last reviewed 2021. Blood 07/06/2024 9:00 PM CDT 07/06/2024 9:03 PM CDT us Angie Espinal NP LAB BLOOD ORDERABLES Fin al Result [facility] [address] [facility] Department [place] [address] * Differential, auto (07/06/2024 9:00 PM CDT) Neutrophil abs 4.56 1.50 - 6.50 K/cumm Imm gran abs 0.02 0.00 - 0.10 K/cumm [facility] Lymphocyte abs 2.88 0.80 - 3.30 K/cumm [facility] Monocyte abs 0.65 0.20 - 0.80 K/cumm [facility] Eosinophil abs 0.11 0.00 - 0.50 K/cumm [facility] Basophil abs 0.04 0.00 - 0.10 K/cumm [facility] Neutrophil pct 55.2 % [facility] Comment: Interpretive Data Percent cell count reference ranges are not reported, since discordance with absolute values may lead to misinterpretation of CBC data. Current Interpretive Data was last revised on 2017. Imm gran pct 0.2 % [facility] Comment: Interpretive Data Percent cell count reference ranges are not reported, since discordance with absolute values may lead to misinterpretation of CBC data. Current Interpretive Data was last revised on 2017. Lymphocyte pct 34.9 % [facility] Comment: Interpretive Data Percent cell count reference ranges are not reported, since discordance with absolute values may lead to misinterpretation of CBC data. Current Interpretive Data was last revised on 2017. Monocyte pct 7.9 % [facility] Comment: Interpretive Data Percent cell count reference ranges are not reported, since discordance with absolute values may lead to misinterpretation of CBC data. Current Interpretive Data was last revised on 2017. Eosinophil pct 1.3 % [facility] Comment: Interpretive Data Percent cell count reference ranges are not reported, since discordance with absolute values may lead to misinterpretation of CBC data. Current Interpretive Data was last revised on 2017. Basophil pct 0.5 % [facility] Comment: Interpretive Data Percent cell count reference ranges are not reported, since discordance with absolute values may lead to misinterpretation of CBC data. Current Interpretive Data was last revised on 2017. Blood 07/06/2024 9:00 PM CDT 07/06/2024 9:03 PM CDT us Angie Espinal NP LAB BLOOD ORDERABLES Fin al Result [address] [place] [address] * CBC with auto differential (07/06/2024 9:00 PM CDT) [facility] WBC 8.26 3.80 - 9.90 K/cumm Hgb 13.6 11.9 - 15.5 g/dL [facility] Hct 40.4 35.6 - 45.5 % [facility] Plt 266 150 - 400 K/cumm [facility] MPV 9.6 9.1 - 12.3 fL [facility] RBC 4.93 3.90 - 5.20 M/cumm [facility] MCV 81.9 81.3 - 96.4 fL [facility] MCH 27.6 27.1 - 33.3 pg [facility] MCHC 33.7 32.3 - 35.7 g/dL [facility] RDW CV 12.6 11.1 - 14.9 % [facility] RDW SD 37.6 35.7 - 48.1 fL [facility] NRBC abs 0.00 0.00 - 0.01 K/cumm [facility] Blood 07/06/2024 9:00 PM CDT 07/06/2024 9:03 PM CDT Angie Espinal LIQUOR BLENDER LAB BLOOD ORDERABLES Fin al Result [address] [place] [address] * Comprehensive metabolic panel (07/06/2024 9:00 PM CDT) [facility] Sodium 139 135 - 145 mmol/L Potassium, pl 4.0 3.3 - 4.9 mmol/L [facility] Comment:Hemolyzed; Potassium value may be falsely elevated by as much as 1.0 mmol/L. Suggest redraw and reanalysis. Chloride 104 97 - 110 mmol/L [facility] CO2 23 22 - 32 mmol/L [facility] Anion gap 12 2 - 15 mmol/L [facility] BUN 13 6 - 25 mg/dL [facility] Creatinine 0.75 0.60 - 1.10 mg/dL [facility] Glucose 93 70 - 199 mg/dL [facility] Comment: Interpretive Data Fasting glucose >/= 126 [...] classification and Diagnosis of Diabetes Diabetes Care 202; 46: S19-S40. Current interpretive data was last revised 2022. Calcium 9.3 8.5 - 10.3 mg/dL [facility] Bilirubin, total 0.2 0.1 - 1.2 mg/dL [facility] Protein, pl 7.3 6.5 - 8.5 g/dL [facility] Albumin 4.2 3.5 - 5.0 g/dL [facility] Alk phos 85 40 - 130 Units/L [facility] ALT 15 7 - 45 Units/L [facility] AST 20 10 - 45 Units/L [facility] Blood 07/06/2024 9:00 PM CDT 07/06/2024 9:03 PM CDT Angie Espinal NP LAB BLOOD ORDERABLES Fin al Result [facility] [address] [facility] Department [place] [address] * POCT hCG, urine (07/06/2024 8:49 PM CDT) Pathologist [facility] HCG, ur, POC Negative Negative Lot Number [id number] QC Backgroud Clear Acceptable QC Control Line Acceptable Urine 07/06/2024 8:49 PM CDT Angie Espinal NP POINT OF CARE TEST ORDER MICHELLE Final Result * N. gonorrhoeae/C. trachomatis Amplification Urine (07/16/2021 2:14 PM CDT) [facility] C. trachomatis Not detected Not detected [facility] N. gonorrhoeae Not detected Not detected [facility] Comment: Testing performed by the [facility]. This assay detects Chlamydia trachomatis and [...] 2:14 PM CDT 07/16/2021 8:49 PM CDT Denis Nava MD LAB MICROBIOLOGY - GENERAL ORDERABLES Final Result [facility] [address] [place] [address] from Last 3 Months or Most Recently Relevant to Health Maintenance Insurance [employer] [place] [employer] Care Teams Technician Terminal And Repeater Relationship Specialty Start Date End Date Denis Nava MD [address] [place] [address] PCP - General Family Medicine 07/16/21 Gordo Rivera MD [address] [address] Endocrinology Diabetes & Metabolism 07/16/21
--- OUTSIDE RECORDS SUMMARY | 2024-08-09 12:45 | XMS_ITS | Clinical Summary ---
Author Organization [facility] Address [address] [facility] [place] [address] Care Team Providers Care Patent Engineer Name Role Phone Unknown, Provider Primary Care Provider Unavaila ble Source Comments [facility],non-owned Affiliates and Associated Physician Practices is amultiple site organization consisting of ambulatory clinics and hospital sitesin [place], [place], [place] and [place]. This disclosure is being madepursuant to the Care Everywhere program and may not contain all information available regarding this patient. Last updated 17.[facility] Allergies No known active allergies Medications * Be aware that medications may not be up to date on this document. Alwaysverify current medications with the patient. Fexofenadine HCl (SHAKIRA PO) Active Active Problems No known active problems Social History Tobacco Use Types Packs/Day Years Used Date Smoking Tobacco: Never Smokeless Tobacco: Never Comments Unknown Sex and Gender Information Value Date Recorded Sex Assigned at Not on file Legal Sex Female 6:34 AM CDT Gender Identity Not on file Sexual Orientation Not on file Last Filed Vital Signs Vital Sign Reading Time Taken Comments Blood Pressure 106/68 01/25/2021 11:57 AM CDT Pulse 92 01/25/2021 11:57 AM CDT Temperature 37.3 C (99.2 F) 01/25/2021 11:57 AM CDT Respiratory Rate 17 01/25/2021 11:57 AM CDT Oxygen Saturation 98% 01/25/2021 11:57 AM CDT Inhaled Oxygen Concentration - - Weight 115.7 kg (255 lb) 01/25/2021 11:57 AM CDT Height 172.7 cm (5' 8 ) 01/25/2021 11:57 AM CDT Body Mass Index 38.77 01/25/2021 11:57 AM CDT Plan of Treatment Health Maintenance Due Date Last Done Comments HIV SCREENING 09/10/2015 HPV VACCINE (1 - 3-dose series) 09/10/2015 CHLAMYDIA/GONORRHEA SCREENING 2016 MENINGOCOCCAL (Group B) VACC INE SHARED DECISION-MAKING (1 of 2 - Standard) 2016 HEPATITIS C SCREENING 09/05/2018 DTAP/TDAP/TD VACCINES (1 - Tdap) 09/10/2019 HEPATITIS B VACCINE (1 of 3 - 19+ 3-dose series) 09/10/2019 COVID-19 VACCINE (2 - 2023-2 5 season) 2023 07/01/2020 DEPRESSION SCREENING 03/24/2024 INFLUENZA VACCINE (Season Ended) 2024 ZOSTER VACCINE (1 of 2) 2050 HIB VACCINE Aged Out No longer eligi ble based on patient's age to complete this topic MENINGOCOCCAL GROUPS A/C/Y/W VACCINE Aged Out No longer eligible b ased on patient's age to complete this topic PNEUMOCOCCAL VACCINE Aged Out No long er eligible based on patient's age to complete this topic Insurance [employer] Care Teams Patent Engineer Relationship Specialty Start Date End Date Unknown, Provider PCP - General 01/25/21
== END 2024-08-09 12:41 | disposition home or self-care (01) ==
PROVIDERS: PCP Family Medicine; Visit Provider Family Medicine
DX: R00.2 Palpitations (principal)
CPT/HCPCS: 93242

== ENCOUNTER 2024-10-05 09:49 | Outpatient (CLI) | payer BC, SELFPAY ==
--- OUTSIDE RECORDS SUMMARY | 2024-09-22 10:18 | XMS_ITS | Clinical Summary ---
Author Organization [facility] [employer] Address [address] [facility] [place] [address] Care Team Providers Care Hand Cloth Examiner Name Role Phone Unknown, Provider Primary Care Provider Unavaila ble Source Comments [facility],non-owned Affiliates and Associated Physician Practices is amultiple site organization consisting of ambulatory clinics and hospital sitesin [place], [place], [place] and [place]. This disclosure is being madepursuant to the Care Everywhere program and may not contain all information available regarding this patient. Last updated 17.[facility] [employer] Allergies No known active allergies Medications * [...] 11:57 AM CDT Height 172.7 cm (5' 8) 01/25/2021 11:57 AM CDT Body Mass Index 38.77 01/25/2021 11:57 AM CDT Plan of Treatment Health Maintenance Due Date Last Done Comments HIV SCREENING 09/10/2015 HPV VACCINE (1 - 3-dose series) 09/10/2015 CHLAMYDIA/GONORRHEA SCREENING 2016 HEPATITIS C SCREENING 09/05/2018 DTAP/TDAP/TD VACCINES (1 - Tdap) 09/10/2019 HEPATITIS B VACCINE (1 of 3 - 19+ 3-dose series) 09/10/2019 COVID-19 VACCINE (2 - 2023-2 5 season) 2023 07/01/2020 DEPRESSION SCREENING 03/24/2024 INFLUENZA VACCINE (Season Ended) 2024 ZOSTER VACCINE (1 of 2) 2050 HIB VACCINE Aged Out No longer eligi ble based on patient's age to complete this topic MENINGOCOCCAL (Group B) VACC INE SHARED DECISION-MAKING Aged Out No longer eligibl e based on patient's age to complete this topic MENINGOCOCCAL GROUPS A/C/Y/W VACCINE Aged Out No longer eligible b ased on patient's age to complete this topic PNEUMOCOCCAL VACCINE Aged Out No long er eligible based on patient's age to complete this topic Insurance [facility] Care Teams Hand Cloth Examiner Relationship Specialty Start Date End Date Unknown, Provider PCP - General 01/25/21
--- OUTSIDE RECORDS SUMMARY | 2024-09-22 10:18 | XMS_ITS | Clinical Summary ---
Author Organization [facility] [address] Address [address] [place] [phone] Care Team Providers Care Chief Talent Officer Name Role Phone Denis Nava MD Primary Care Provider [phone] Gordo Rivera MD Unavailable [phone] Allergies No known active allergies Medications lansoprazole (PREVACID) 30 mg capsule Take by mouth daily 05/25/2021 Active cetirizine (ZyrTEC) 10 mg tablet Take 1 tablet (10 mg total) by mouth daily Active norethindrone (MICRONOR) 0.35 mg tablet Take 1 tablet (0.35 mg total) by mouth daily 08/02/2024 Active polyethylene glycol (MIRALAX) 17 gram/dose bulk powder Take 17 g by mouth daily Active Active Problems Problem Noted Date Diagnosed Date GERD (gastroesophageal reflux disease) PMDD (premenstrual dysphoric disorder) Vasovagal syncope 08/18/2024 Anxiety and depression 08/18/2024 PCOS (polycystic ovarian syndrome) IBS (irritable bowel syndrome) Resolved Problems Problem Noted Date Diagnosed Date Resolved Date Viral gastroenteritis 06/19/20242024 Assessment & Plan (06/19/2024 5:29 PM CDT): Symptoms have improved. Continue to slowly resume regular diet. If any worsening muscle fatigue or brain fog recommend in person evaluation for possible labs. Patient verbalized understanding and agreed to plan of care at this time. Encounter for medical examin [facility] to establish care 07/16/2021 08/18/2024 Assessment & Plan (07/16/2021 2:01 PM CDT): [...] from home Paronychia of toe of left fo ot due to ingrown toenail 07/16/2021 08/18/2024 Encounters Date Type Department Care Team Description 09/10/2024 Telephone [facility] [address] [facility] [address] [place] [phone] Ashley Smith RN 09/06/2024 Telephone [facility] [address] [facility] [address] [place] [phone] Ashley Smith RN 08/31/2024 Telephone [facility] [address] [facility] [address] [place] [phone] Ashley Smith RN 08/23/2024 Results Follow-Up [facility] [address] [facility] [address] [place] [phone] Niesha Olivarez MD IgE 08/18/2024 5:05 PM CDT - 08/18/2024 11:59 PM CDT Hospital Encounter [facility] [address] [place] [address] Discharge Disposition: Discharge to home or self care 08/18/2024 3:00 PM CDT Lab [facility] [address] [phone] Adverse food reaction, initial encounter; Allergic rhinitis, unspecified seasonality, unspecified trigger 08/18/2024 2:00 PM CDT Office Visit [facility] [address] [place] [address] [address] [place] [phone] Niesha Olivarez MD Adverse food reaction, initial encounter (Primary Dx); Allergic rhinitis, unspecified seasonality, unspecified trigger 07/27/2024 1:46 PM CDT - 07/27/2024 11:59 PM CDT Hospital Encounter [facility] [address] [place] [address] Diarrhea, unspecified type Discharge Disposition: Discharge to home or self care 07/06/2024 11:08 PM CDT - 07/06/2024 11:50 PM CDT Emergency [facility] [address] [place] [address] Dysphagia, unspecified type (Primary Dx) Discharge Disposition: Discharge to home or self care from Last 3 Months Immunizations Immunization Administration [...] Tobacco: Never Tobacco Cessation:Counseling Given: Not Answered AUDIT-C Answer Date Recorded Q1: How often [...] Sign Reading Time Taken Comments Blood Pressure 127/81 08/18/2024 1:44 PM CDT Pulse 77 08/18/2024 1:44 PM CDT Temperature 37 C (98.6 F) 08/18/2024 1:44 PM CDT Respiratory Rate 18 08/18/2024 1:44 PM CDT Oxygen Saturation 98% 08/18/2024 1:44 PM CDT Inhaled Oxygen Concentration - - Weight 115.7 kg (255 lb) 08/18/2024 1:44 PM CDT Height 172.7 cm (5' 8) 08/18/2024 1:44 PM CDT Body Mass Index 38.77 08/18/2024 1:44 PM CDT Plan of Treatment Health Maintenance Due Date Last Done Comments Cervical Cancer Screening 2000 Hepatitis C Screening 2000 HPV Vaccines (1 - 3-dose series) 09/10/2015 DTaP/Tdap/Td Vaccine (7 - Td or Tdap) 09/30/2021 10/01/2011, 11/22/2005, 08/13/2002, Additional history exists Chlamydia and Gonorrhea (GC/ CT) Screening 07/16/2022 07/16/2021 Depression Screening 07/16/2022 07/16/2021 Regular Well Visit/Exam 18-64 07/16/2022 07/16/2021 Covid-19 Vaccine (2 - 2023-2 5 season) 2023 07/01/2020 Influenza Vaccine (Season Ended) 2024 Hepatitis B Screening Completed 01/09/2001 , 2000, 2000 Pneumococcal vaccine <65 Completed 003, 03/12/2001, 02/04/2001, Additional history exists Varicella Vaccines Completed 10/01/2011, 11/16/2001 Procedures Procedure Name Priority Date/Time Associated Diagnosis Comments BLOOD MISC TO ORCAS Routine 08/18/2024 3: 01 PM CDT IGE Routine 08/18/2024 3:01 PM CDT Allergic rhinitis, unspecified seasonality, unspecified trigger ALLERGEN BIRCH COMMON SILVER (TREE) IGE Routine 08/18/2024 3:01 PM CDT Allergic rhinitis, unspecified seasonality, unspecified trigger ALLERGEN ELM (TREE) IGE Routine 08/19/19 3:01 PM CDT Allergic rhinitis, unspecified seasonality, unspecified trigger ALLERGEN MAPLE/BOX ELDER (TREE) IGE Routine 08/18/2024 3:01 PM CDT Allergic rhinitis, unspecified seasonality, unspecified trigger ALLERGEN MOUNTAIN JUNIPER (TREE) IGE Routine 08/18/2024 3:01 PM CDT Allergic rhinitis, unspecified seasonality, unspecified trigger ALLERGEN MULBERRY (TREE) IGE Routine 08/18/2024 3:01 PM CDT Allergic rhinitis, unspecified seasonality, unspecified trigger ALLERGEN OAK RED (TREE) IGE Routine 08/18/2024 3:01 PM CDT Allergic rhinitis, unspecified seasonality, unspecified trigger ALLERGEN SYCAMORE ENGLISH (TREE) IGE Routine 08/18/2024 3:01 PM CDT Allergic rhinitis, unspecified seasonality, unspecified trigger ALLERGEN WALNUT (TREE) IGE Routine 08/18/2024 3:01 PM CDT Allergic rhinitis, unspecified seasonality, unspecified trigger ALLERGEN BERMUDA GRASS (GRASS) IGE Routine 08/18/2024 3:01 PM CDT Allergic rhinitis, unspecified seasonality, unspecified trigger ALLERGEN PARKER GRASS (GRASS) IGE Routine 08/18/2024 3:01 PM CDT Allergic rhinitis, unspecified seasonality, unspecified trigger ALLERGEN RIGOBERTO GRASS (GRASS) IGE Routine 08/18/2024 3:01 PM CDT Allergic rhinitis, unspecified seasonality, unspecified trigger ALLERGEN PLANTAIN HUNGARIAN (WEED) IGE Routine 08/18/2024 3:01 PM CDT Allergic rhinitis, unspecified seasonality, unspecified trigger ALLERGEN CASTRO'S QUARTER (WEED) IGE Routine 08/18/2024 3:01 PM CDT Allergic rhinitis, unspecified seasonality, unspecified trigger ALLERGEN PIGWEED ROUGH (WEED) IGE Routine 08/18/2024 3:01 PM CDT Allergic rhinitis, unspecified seasonality, unspecified trigger ALLERGEN RAGWEED SHORT/COMMON (WEED) IGE Routine 08/18/2024 3:01 PM CDT Allergic rhinitis, unspecified seasonality, unspecified trigger ALLERGEN NETTLE (WEED) IGE Routine 08/18/2024 3:01 PM CDT Allergic rhinitis, unspecified seasonality, unspecified trigger ALLERGEN ALTERNARIA TENUIS (MOLD) IGE Routine 08/18/2024 3:01 PM CDT Allergic rhinitis, unspecified seasonality, unspecified trigger ALLERGEN ASPERGILLUS FUMIGATUS (MOLD) IGE Routine 08/18/2024 3:01 PM CDT Allergic rhinitis, unspecified seasonality, unspecified trigger ALLERGEN CLADOSPORIUM HERBARUM (MOLD) IGE Routine 08/18/2024 3:01 PM CDT Allergic rhinitis, unspecified seasonality, unspecified trigger ALLERGEN PENICILLIUM CHRYSOGENUM (MOLD) IGE Routine 08/18/2024 3:01 PM CDT Allergic rhinitis, unspecified seasonality, unspecified trigger ALLERGEN EPITHELIA/DANDER CAT (ANIMAL) IGE Routine 08/18/2024 3:01 PM CDT Allergic rhinitis, unspecified seasonality, unspecified trigger ALLERGEN COCKROACH ENGLISH (INSECT) IGE Routine 08/18/2024 3:01 PM CDT Allergic rhinitis, unspecified seasonality, unspecified trigger ALLERGEN DERMATOPHAGOIDES FARINAE (INSECT) IGE Routine 08/18/2024 3:01 PM CDT Allergic rhinitis, unspecified seasonality, unspecified trigger ALLERGEN DERMATOPHAGOIDES PTERONYSSINUS (INSECT) IGE Routine 08/18/2024 3:01 PM CDT Allergic rhinitis, unspecified seasonality, unspecified trigger ALLERGEN EPITHELIA/DANDER DOG (ANIMAL) IGE Routine 08/18/2024 3:01 PM CDT Allergic rhinitis, unspecified seasonality, unspecified trigger ALLERGEN MOUSE MIX (ANIMAL) IGE Routine 08/18/2024 3:01 PM CDT Allergic rhinitis, unspecified seasonality, unspecified trigger ALLERGEN RAT MIX (ANIMAL) IGE Routine 08/18/2024 3:01 PM CDT Allergic rhinitis, unspecified seasonality, unspecified trigger ALLERGEN TOMATO (FOOD) IGE Routine 08/18/2024 3:01 PM CDT Adverse food reaction, initial encounter ALLERGEN STRAWBERRY (FOOD) IGE Routine 08/18/2024 3:01 PM CDT Adverse food reaction, initial encounter ALLERGEN PINEAPPLE (FOOD) LOVE Routine 08/18/2024 3:01 PM CDT Adverse food reaction, initial encounter ALLERGEN TEA (FOOD) IGE Routine 08/19/19 3:01 PM CDT Adverse food reaction, initial encounter ALLERGEN PEANUT (FOOD) IGE Routine 08/18/2024 3:01 PM CDT Adverse food reaction, initial encounter ALLERGEN ALMOND (FOOD) IGE Routine 08/18/2024 3:01 PM CDT Adverse food reaction, initial encounter ALLERGEN PEANUT COMPONENT 2 (FOOD) IGE Routine 08/18/2024 3:01 PM CDT Adverse food reaction, initial encounter ALLERGEN PEANUT COMPONENT 8 (FOOD) IGE Routine 08/18/2024 3:01 PM CDT Adverse food reaction, initial encounter ALLERGEN PEANUT COMPONENT 9 (FOOD) IGE Routine 08/18/2024 3:01 PM CDT Adverse food reaction, initial encounter ALLERGEN PEANUT COMPONENT 3 (FOOD) IGE Routine 08/18/2024 3:01 PM CDT Adverse food reaction, initial encounter ALLERGEN PEANUT COMPONENT 6 (FOOD) IGE Routine 08/18/2024 3:01 PM CDT Adverse food reaction, initial encounter ALLERGEN PEANUT COMPONENT 1 (FOOD) IGE Routine 08/18/2024 3:01 PM CDT Adverse food reaction, initial encounter ALLERGEN POTATO (FOOD) IGE Routine 08/18/2024 3:01 PM CDT Adverse food reaction, initial encounter CT ABDOMEN PELVIS W CONTRAST Schedule Routine, [...] Recently Relevant to Health Maintenance Results * Allergen Peanut component 6 (food) IgE (08/18/2024 3:01 PM CDT) Peanut comp 6 IgE <0.10 0.00 - 0.34 kUnits/L Blood 08/18/2024 3:01 PM CDT 08/18/2024 6:01 PM CDT us Niesha Olivarez MD LAB BLOOD ORDERABLES Final Result [facility] Department [place] [address] * Allergen Rat mix (animal) IgE (08/18/2024 3:01 PM CDT) Rat mix IgE <0.10 0.00 - 0.34 kUnits/L Blood 08/18/2024 3:01 PM CDT 08/18/2024 6:01 PM CDT Niesha Olivarez MD LAB BLOOD ORDERABLES Final Result Performing Organization Address [facility] de Phone Number [facility] [place] [address] * Allergen Mouse mix (animal) IgE (08/18/2024 3:01 PM CDT) [facility] Mouse mix IgE <0.10 0.00 - 0.34 kUnits/L Blood 08/18/2024 3:01 PM CDT 08/18/2024 6:01 PM CDT Niesha Olivarez MD LAB BLOOD ORDERABLES Final Result Performing Organization Address [facility] de Phone Number [facility] [place] [address] * BLOOD MISC TO ORCAS (08/18/2024 3:01 PM CDT) Test name, chem FZCCE [place] IgE [place] ref Lab Misc See Footnote [facility] Comment: Test Result Flag Unit RefValue Zucchini IgE <0.35 kU/L <0.35 Class 0 CLASS INTERPRETATION: <0.35 kU/L=0, Below Detection; 0.35-0.69 kU/L= 1, Low Positive; 0.70-3.49 kU/L= 2, Moderate Positive; 3.50-17.49 kU/L= 3, Positive; 17.50-49.99 kU/L= 4, Strong Positive; >49.99 kU/L= 5, Very Strong Positive *This test was developed and its performance characteristics determined by [employer]. It has not been cleared or approved by the U.S. Food and Drug Administration. FLAG Interpretation: A = Abnormal, H = High, L = Low Test Performed by: [employer] [id number] [address] Blood 08/18/2024 3:01 PM CDT 08/18/2024 7:30 PM CDT Niesha Olivarez MD LAB BLOOD ORDERABLES Final Result Performing Organization Address [facility] Co de Phone Number [facility] Department [place] [address] [facility] * Allergen Peanut component 9 (food) IgE (08/18/2024 3:01 PM CDT) Peanut comp 9 IgE <0.10 0.00 - 0.34 kUnits/L Blood 08/18/2024 3:01 PM CDT 08/18/2024 6:01 PM CDT Niesha Olviarez MD LAB BLOOD ORDERABLES Final Result Performing Organization Address [facility] Co de Phone Number [facility] Department [place] [address] * Allergen Peanut component 8 (food) IgE (08/18/2024 3:01 PM CDT) Peanut comp 8 IgE <0.10 0.00 - 0.34 kUnits/L Blood 08/18/2024 3:01 PM CDT 08/18/2024 6:01 PM CDT us Niesha Olivarez MD LAB BLOOD ORDERABLES Final Result Performing Organization Address [facility] Co de Phone Number [facility] [place] [address] * Allergen Peanut component 3 (food) IgE (08/18/2024 3:01 PM CDT) Peanut comp 3 IgE <0.10 0.00 - 0.34 kUnits/L Blood 08/18/2024 3:01 PM CDT 08/18/2024 6:01 PM CDT Niesha Olivarez MD LAB BLOOD ORDERABLES Final Result Performing Organization Address [facility] de Phone Number [facility] [place] [address] * Allergen Peanut component 2 (food) IgE (08/18/2024 3:01 PM CDT) Peanut comp 2 IgE <0.10 0.00 - 0.34 kUnits/L Blood 08/18/2024 3:01 PM CDT 08/18/2024 6:01 PM CDT Result [facility] Niesha Olivarez MD LAB BLOOD ORDERABLES Final Result Performing Organization Address [facility] Co de Phone Number [facility] Department [place] [address] * Allergen Peanut component 1 (food) IgE (08/18/2024 3:01 PM CDT) Peanut comp 1 IgE <0.10 0.00 - 0.34 kUnits/L Blood 08/18/2024 3:01 PM CDT 08/18/2024 6:01 PM CDT Niesha Olivarez MD LAB BLOOD ORDERABLES Final Result Performing Organization Address [facility]/ZIP Co de Phone Number [facility] [place] [address] * Allergen Penicillium chrysogenum (mold) IgE (08/18/2024 3:01 PM CDT) Penicillium chrysogenum IgE <0.10 0.00 - 0.34 kUnits/L Blood 08/18/2024 3:01 PM CDT 08/18/2024 6:01 PM CDT Niesha Olivarez MD LAB BLOOD ORDERABLES Final Result Performing Organization Address [facility] [place] [address] * Allergen [place] (tree) IgE (08/18/2024 3:01 PM CDT) [place] IgE <0.10 0.00 - 0.34 kUnits/L Blood 08/18/2024 3:01 PM CDT 08/18/2024 6:01 PM CDT Niesha Olivarez MD LAB BLOOD ORDERABLES Final Result Performing Organization Address [facility] Co de Phone Number [facility] [place] [address] * Allergen Mountain juniper (tree) IgE (08/18/2024 3:01 PM CDT) Mountain juniper IgE <0.10 0.00 - 0.34 kUnits/L Blood 08/18/2024 3:01 PM CDT 08/18/2024 6:01 PM CDT Niesha Olivarez MD LAB BLOOD ORDERABLES Final Result Performing Organization Address [facility] Co de Phone Number [place] [address] * Allergen Bermuda grass (grass) IgE (08/18/2024 3:01 PM CDT) Berm[place] grass IgE <0.10 0.00 - 0.34 kUnits/L Blood 08/18/2024 3:01 PM CDT 08/18/2024 6:01 PM CDT Niesha Olivarez MD LAB [place] [address] * Allergen Plantain micronesian (weed) IgE (08/18/2024 3:01 PM CDT) Plantain micronesian IgE <0.10 0.00 - 0.34 kUnits/L Blood 08/18/2024 3:01 PM CDT 08/18/2024 6:01 PM CDT Niesha Olivarez MD LAB BLOOD ORDERABLES Final Result Performing Organization Address [facility]/[place] [address] * Allergen Potato (food) IgE (08/18/2024 3:01 PM CDT) Potato IgE <0.10 0.00 - 0.34 kUnits/L Blood 08/18/2024 3:01 PM CDT 08/18/2024 6:01 PM CDT Niesha Olivarez MD LAB [place] [address] * Allergen [place] (food) IgE (08/18/2024 3:01 PM CDT) [place] IgE <0.10 0.00 - 0.34 kUnits/L Blood 08/18/2024 3:01 PM CDT 08/18/2024 6:01 PM CDT Niesha Olivarez MD LAB BLOOD ORDERABLES Final Result Performing Organization Address [facility] Co de Phone Number [facility] [place] [address] * Allergen Tomato (food) IgE (08/18/2024 3:01 PM CDT) Tomato IgE <0.10 0.00 - 0.34 kUnits/L Blood 08/18/2024 3:01 PM CDT 08/18/2024 6:01 PM CDT Result [facility] Niesha Olivarez MD LAB BLOOD ORDERABLES Final Result Performing Organization Address [facility] de Phone Number [facility] [place] [address] * Allergen [place] (food) IgE (08/18/2024 3:01 PM CDT) [place] IgE <0.10 0.00 - 0.34 kUnits/L Blood 08/18/2024 3:01 PM CDT 08/18/2024 6:01 PM CDT Result [facility] Niesha Olivarez MD LAB BLOOD ORDERABLES Final Result Performing Organization Address [facility] [place] [address] * Allergen Elm (tree) IgE (08/18/2024 3:01 PM CDT) Elm IgE <0.10 0.00 - 0.34 kUnits/L Blood 08/18/2024 3:01 PM CDT 08/18/2024 6:01 PM CDT Niesha Olivarez MD LAB BLOOD ORDERABLES Final Result Performing Organization Address [facility] Co de Phone Number [facility] [place] [address] * Allergen Cladosporium herbarum (mold) IgE (08/18/2024 3:01 PM CDT) Cladosporium herbarum IgE <0.10 0.00 - 0.34 kUnits/L Blood 08/18/2024 3:01 PM CDT 08/18/2024 6:01 PM CDT Niesha Olivarez MD LAB BLOOD ORDERABLES Final Result Performing Organization Address [facility] Co de Phone Number [facility] [place] [address] * Allergen Birch common silver (tree) IgE (08/18/2024 3:01 PM CDT) Birch common silver IgE <0.10 0.00 - 0.34 kUnits/L Blood 08/18/2024 3:01 PM CDT 08/18/2024 6:01 PM CDT Niesha Olivarez MD LAB BLOOD ORDERABLES Final Result Performing Organization Address [facility] [place] [address] * Allergen Alternaria tenuis (mold) IgE (08/18/2024 3:01 PM CDT) Alternaria tenius IgE <0.10 0.00 - 0.34 kUnits/L Blood 08/18/2024 3:01 PM CDT 08/18/2024 6:01 PM CDT Niesha Olivarez MD LAB BLOOD ORDERABLES Final Result Performing Organization Address [facility] Co de Phone Number [facility] [place] [address] * Allergen Aspergillus fumigatus (mold) IgE (08/18/2024 3:01 PM CDT) Aspergillus fumigatus IgE <0.10 0.00 - 0.34 kUnits/L Blood 08/18/2024 3:01 PM CDT 08/18/2024 6:01 PM CDT Niesha Olivarez MD LAB BLOOD ORDERABLES Final Result Performing Organization Address [facility] Co de Phone Number [facility] [place] [address] * Allergen Dermatophagoides pteronyssinus (insect) IgE (08/18/2024 3:01 PM CDT) Dermatophyton pteronyssinus IgE <0.10 0.00 - 0.34 kUnits/L Blood 08/18/2024 3:01 PM CDT 08/18/2024 6:01 PM CDT Niesha Olivarez MD LAB BLOOD ORDERABLES Final Result Performing Organization Address [facility] Co de Phone Number [facility] [place] [address] * Allergen Dermatophagoides farniae (insect) IgE (08/18/2024 3:01 PM CDT) Dermatophyton farinae IgE <0.10 0.00 - 0.34 kUnits/L Blood 08/18/2024 3:01 PM CDT 08/18/2024 6:01 PM CDT Niesha Olivarez MD LAB BLOOD ORDERABLES Final Result Performing Organization Address [facility] Co de Phone Number [facility] [place] [address] * Allergen Peanut (food) IgE (08/18/2024 3:01 PM CDT) Peanut IgE <0.10 0.00 - 0.34 kUnits/L Blood 08/18/2024 3:01 PM CDT 08/18/2024 6:01 PM CDT Niesha Olivarez MD LAB BLOOD ORDERABLES Final Result Performing Organization Address [facility] de Phone Number [facility] [place] [address] * Allergen Epithelia/dander dog (animal) IgE (08/18/2024 3:01 PM CDT) Dog dander IgE <0.10 0.00 - 0.34 kUnits/L Blood 08/18/2024 3:01 PM CDT 08/18/2024 6:01 PM CDT Result [facility] Niesha Olivarez MD LAB BLOOD ORDERABLES Final Result Performing Organization Address [facility] Co de Phone Number [facility] [place] [address] * Allergen Pineapple (food) IgE (08/18/2024 3:01 PM CDT) Pineapple IgE <0.10 0.00 - 0.34 kUnits/L Blood 08/18/2024 3:01 PM CDT 08/18/2024 6:01 PM CDT Niesha Olivarez MD LAB BLOOD ORDERABLES Final Result Performing Organization Address [facility] Co de Phone Number [facility] [place] [address] * Allergen Cockroach jordanian (insect) IgE (08/18/2024 3:01 PM CDT) Cockroach IgE <0.10 0.00 - 0.34 kUnits/L Blood 08/18/2024 3:01 PM CDT 08/18/2024 6:01 PM CDT Niesha Olivarez MD LAB BLOOD ORDERABLES Final Result Performing Organization Address [facility] de Phone Number [facility] [place] [address] * Allergen Epithelia/dander cat (animal) IgE (08/18/2024 3:01 PM CDT) Cat dander IgE <0.10 0.00 - 0.34 kUnits/L Blood 08/18/2024 3:01 PM CDT 08/18/2024 6:01 PM CDT Niesha Olivarez MD LAB BLOOD ORDERABLES Final Result Performing Organization Address [facility] Co de Phone Number [facility] Department [place] [address] * Allergen Ragweed short/common (weed) IgE (08/18/2024 3:01 PM CDT) Ragweed common IgE <0.10 0.00 - 0.34 kUnits/L Blood 08/18/2024 3:01 PM CDT 08/18/2024 6:01 PM CDT Niesha Olivarez MD LAB BLOOD ORDERABLES Final Result Performing Organization Address [facility]/ZIP Co de Phone Number [facility] [place] [address] * Allergen Pigweed, rough (weed) IgE (08/18/2024 3:01 PM CDT) Pigweed rough IgE <0.10 0.00 - 0.34 kUnits/L Blood 08/18/2024 3:01 PM CDT 08/18/2024 6:01 PM CDT Niesha Olivarez MD LAB [place] [address] * Allergen Nettle (weed) IgE (08/18/2024 3:01 PM CDT) Nettle IgE <0.10 0.00 - 0.34 kUnits/L Blood 08/18/2024 3:01 PM CDT 08/18/2024 6:01 PM CDT Niesha Olivarez MD LAB BLOOD ORDERABLES Final Result [facility] [place] [address] * Allergen Castro's quarter (weed) IgE (08/18/2024 3:01 PM CDT) Castro's quarters IgE <0.10 0.00 - 0.34 kUnits/L Blood 08/18/2024 3:01 PM CDT 08/18/2024 6:01 PM CDT Niesha Olivarez MD LAB BLOOD ORDERABLES Final Result [facility] [place] [address] * Allergen Rigoberto grass (grass) IgE (08/18/2024 3:01 PM CDT) Rigoberto grass IgE <0.10 0.00 - 0.34 kUnits/L Blood 08/18/2024 3:01 PM CDT 08/18/2024 6:01 PM CDT Niesha Olivarez MD LAB BLOOD ORDERABLES Final Result Performing Organization Address [facility] [place] [address] * Allergen Parker grass (grass) IgE (08/18/2024 3:01 PM CDT) Parker grass IgE <0.10 0.00 - 0.34 kUnits/L Blood 08/18/2024 3:01 PM CDT 08/18/2024 6:01 PM CDT Result [facility] Niesha Olivarez MD LAB BLOOD ORDERABLES Final Result Performing Organization Address [facility] Co de Phone Number [facility] [place] [address] * Allergen [place] (tree) IgE (08/18/2024 3:01 PM CDT) [place] (tree) IgE <0.10 0.00 - 0.34 kUnits/L Blood 08/18/2024 3:01 PM CDT 08/18/2024 6:01 PM CDT Result [facility] Niesha Olivarez MD LAB BLOOD ORDERABLES Final Result Performing Organization Address [facility] Co de Phone Number [facility] [place] [address] * Allergen [place] jordanian (tree) IgE (08/18/2024 3:01 PM CDT) [place] IgE <0.10 0.00 - 0.34 kUnits/L Blood 08/18/2024 3:01 PM CDT 08/18/2024 6:01 PM CDT Niesha Olivarez MD LAB BLOOD ORDERABLES Final Result Performing Organization Address [facility] Co de Phone Number [facility] [place] [address] * Allergen Maple/Box elder (tree) IgE (08/18/2024 3:01 PM CDT) Maple/box elder IgE <0.10 0.00 - 0.34 kUnits/L Blood 08/18/2024 3:01 PM CDT 08/18/2024 6:01 PM CDT Niesha Olivarez MD LAB BLOOD ORDERABLES Final Result Performing Organization Address [facility] de Phone Number [facility] [place] [address] * Allergen Tea (food) IgE (08/18/2024 3:01 PM CDT) Tea IgE <0.10 0.00 - 0.34 kUnits/L Blood 08/18/2024 3:01 PM CDT 08/18/2024 6:01 PM CDT Niesha Olivarez MD LAB BLOOD ORDERABLES Final Result Performing Organization Address [facility] Co de Phone Number [facility] [place] [address] * Allergen [place] red (tree) IgE (08/18/2024 3:01 PM CDT) [place] IgE <0.10 0.00 - 0.34 kUnits/L Blood 08/18/2024 3:01 PM CDT 08/18/2024 6:01 PM CDT Niesha Olivarez MD LAB BLOOD ORDERABLES Final Result Performing Organization Address [facility] Co de Phone Number [facility] [place] [address] * IgE (08/18/2024 3:01 PM CDT) IgE 38 <=100 IUnits/mL Blood 08/18/2024 3:01 PM CDT 08/18/2024 6:01 PM CDT Niesha Olivarez MD LAB BLOOD ORDERABLES Final Result Performing Organization Address [facility] de Phone Number [facility] [place] [address] * CT Abdomen Pelvis W Contrast (07/27/2024 [...] by Orlin Anderson M.D. T: Report ID: [id number] Reading Location: [id number] Procedure Note Orlin Anderson Jr., MD - [...] by Orlin Anderson M.D. T: Report ID: [id number] Reading Location: [id number] Carlos Londono MD IMG CT PROCEDURES Final [...] Clint Garcia M.D. KT T: Report ID: [id number] Reading Location: [place] [address] Procedure Note Clint Garcia MD - 07/06/2024 [...] Clint Garcia M.D. KT T: Report ID: [id number] Reading Location: [id number] Paul Boyce KENDRICK IMG CT PROCEDURES Final Resu lt * [...] Clint Garcia M.D. KT T: Report ID: [id number] Reading Location: [id number] Procedure Note Clint Garcia MD - 07/06/2024 [...] Clint Garcia M.D. KT T: Report ID: [id number] Reading Location: [place] [address] PROCEDURES Final Resu [...] 07/06/2024 9:03 PM CDT us Angie Espinal PIPE WELDER LAB BLOOD ORDERABLES Fin al Result [facility] [address] Department [place] [address] * Differential, auto (07/06/2024 9:00 PM CDT) Neutrophil abs 4.56 1.50 - 6.50 K/cumm Imm gran abs 0.02 0.00 - 0.10 K/cumm [facility] Lymphocyte abs 2.88 0.80 - 3.30 K/cumm [facility] Monocyte abs 0.65 0.20 - 0.80 K/cumm [facility] Eosinophil abs 0.11 0.00 - 0.50 K/cumm [facility] Basophil abs 0.04 0.00 - 0.10 K/cumm [facility] Neutrophil pct 55.2 % [facility] Comment: Interpretive Data Percent cell count reference ranges are not reported, since discordance with absolute values may lead to misinterpretation of CBC data. Current Interpretive Data was last revised on 2017. Imm gran pct 0.2 % [facility] Comment: Interpretive Data Percent cell count reference ranges are not reported, since discordance with absolute values may lead to misinterpretation of CBC data. Current Interpretive Data was last revised on 2017. Lymphocyte pct 34.9 % [facility] Comment: Interpretive Data Percent cell count reference ranges are not reported, since discordance with absolute values may lead to misinterpretation of CBC data. Current Interpretive Data was last revised on 2017. Monocyte pct 7.9 % [facility] Comment: Interpretive Data Percent cell count reference ranges are not reported, since discordance with absolute values may lead to misinterpretation of CBC data. Current Interpretive Data was last revised on 2017. Eosinophil pct 1.3 % [facility] Comment: Interpretive Data Percent cell count reference ranges are not reported, since discordance with absolute values may lead to misinterpretation of CBC data. Current Interpretive Data was last revised on 2017. Basophil pct 0.5 % [facility] Comment: Interpretive Data Percent cell count reference ranges are not reported, since discordance with absolute values may lead to misinterpretation of CBC data. Current Interpretive Data was last revised on 2017. Blood 07/06/2024 9:00 PM CDT 07/06/2024 9:03 PM CDT Angie Espinal NP LAB BLOOD ORDERABLES Fin al Result [place] [address] [facility] Department [place] [address] * CBC with auto differential (07/06/2024 9:00 PM CDT) WBC 8.26 3.80 - 9.90 K/cumm Hgb 13.6 11.9 - 15.5 g/dL [facility] Hct 40.4 35.6 - 45.5 % [facility] Plt 266 150 - 400 K/cumm [facility] MPV 9.6 9.1 - 12.3 fL [facility] RBC 4.93 3.90 - 5.20 M/cumm [facility] MCV 81.9 81.3 - 96.4 fL [facility] MCH 27.6 27.1 - 33.3 pg [facility] MCHC 33.7 32.3 - 35.7 g/dL [facility] RDW CV 12.6 11.1 - 14.9 % [facility] RDW SD 37.6 35.7 - 48.1 fL [facility] NRBC abs 0.00 0.00 - 0.01 K/cumm [facility] Blood 07/06/2024 9:00 PM CDT 07/06/2024 9:03 PM CDT us Angie Espinal [employer] LAB BLOOD ORDERABLES Fin al Result [facility] [address] [place] [address] * Comprehensive metabolic panel (07/06/2024 9:00 PM CDT) Sodium 139 135 - 145 mmol/L Potassium, pl 4.0 3.3 - 4.9 mmol/L [facility] Comment:Hemolyzed; Potassium value may be falsely elevated by as much as 1.0 mmol/L. Suggest redraw and reanalysis. Chloride 104 97 - 110 mmol/L [facility] CO2 23 22 - 32 mmol/L [facility] Anion gap 12 2 - 15 mmol/L [facility] BUN 13 6 - 25 mg/dL [facility] Creatinine 0.75 0.60 - 1.10 mg/dL [facility] Glucose 93 70 - 199 mg/dL [facility] Comment: Interpretive Data Fasting glucose >/= [...] 2022. Calcium 9.3 8.5 - 10.3 mg/dL [facility] Bilirubin, total 0.2 0.1 - 1.2 mg/dL [facility] Protein, pl 7.3 6.5 - 8.5 g/dL [facility] Albumin 4.2 3.5 - 5.0 g/dL [facility] Alk phos 85 40 - 130 Units/L [facility] ALT 15 7 - 45 Units/L [facility] AST 20 10 - 45 Units/L [facility] Blood 07/06/2024 9:00 PM CDT 07/06/2024 9:03 PM CDT Angie Silvastan Espinal [employer] LAB BLOOD ORDERABLES Fin al Result [facility] [address] [place] [address] * POCT hCG, urine (07/06/2024 8:49 PM CDT) HCG, ur, POC Negative Negative Lot Number [id number] QC Backgroud Clear Acceptable QC Control Line Acceptable Urine 07/06/2024 8:49 PM CDT Angie Espinal P[employer] WELDER POINT OF CARE TEST ORDER MICHELLE Final Result * N. gonorrhoeae/C. trachomatis Amplification Urine (07/16/2021 2:14 PM CDT) C. trachomatis Not detected Not detected [facility] N. gonorrhoeae Not detected Not detected [facility] Comment: Testing performed by the [facility]. This assay detects Chlamydia trachomatis and Neisseria gonorrhoeae by nucleic acid amplification testing (NAAT). This test is approved by the [facility] Food and Drug Administration and the performance characteristics have been verified by the laboratory. The performance characteristics of this test have not been evaluated in women or individuals less than 16 years of age. Urine (None) 07/16/2021 2:14 PM CDT 07/16/2021 8:49 PM CDT Denis Nava MD LAB MICROBIOLOGY - GENERAL ORDERABLES Final Result [facility] [id number] Department [place] [address] from Last 3 Months or Most Recently Relevant to Health Maintenance Insurance [facility] [employer] [place] [employer] [place] Member Subscriber Plan / Payer (Ef fective 2007-Present) Name:Margarette Cameron Relation to Subscriber:Child Name:MARGARETTE CAMERON Date of :2000 (Home) Address: [address] [place] [address] Payer ID:[id number] (NAIC) Type: ALLIANCE Address: [facility] [id number] [place] [id number] Care Teams Chief Talent Officer Relationship Specialty Start Date End Date Denis Nava MD [address] [place] [address] PCP - General Family Medicine 07/16/21 [place] [address] [place] [id number] Endocrinology Diabetes & Metabolism 07/16/21
--- OUTSIDE RECORDS SUMMARY | 2024-09-22 10:18 | XMS_ITS | Referral Summary ---
Author Organization [address] Address [address] [place] [phone] Care Team Providers Care Timber Selector Name Role Phone Denis Nava MD Primary Care Provider [phone] Gordo Rivera MD Unavailable [phone] Encounters Date Type Department Care Team Description 09/10/2024 Telephone [facility]ology [address] [place] [address] [place] [phone] Ashley Smith RN 09/06/2024 Telephone [facility] [address] [place] [address] [place] [phone] Ashley Smith RN 08/31/2024 Telephone [facility]ology [address] [facility] [address] [place] [phone] Ashley Smith RN 08/23/2024 Results Follow-Up [facility]ology [address] [place] [address] [place] [phone] Niesha Olivarez MD IgE 08/18/2024 5:05 PM CDT - 08/18/2024 11:59 PM CDT Hospital Encounter [address] [address] Discharge Disposition: Discharge to home or self care 08/18/2024 3:00 PM CDT Lab [facility] [address] [phone] Adverse food reaction, initial encounter; Allergic rhinitis, unspecified seasonality, unspecified trigger 08/18/2024 2:00 PM CDT Office Visit [facility]ology [address] [facility] [address] [place] [address] Sher, Niesha Alcala MD Adverse food reaction, initial encounter (Primary Dx); Allergic rhinitis, unspecified seasonality, unspecified trigger 07/27/2024 1:46 PM CDT - 07/27/2024 11:59 PM CDT Hospital Encounter [facility] [address] [place] [address] Diarrhea, unspecified type Discharge Disposition: Discharge to home or self care 07/06/2024 11:08 PM CDT - 07/06/2024 11:50 PM CDT Emergency [facility] [address] [place] [address] Dysphagia, unspecified type (Primary Dx) Discharge Disposition: Discharge to home or self care from Last 3 Months Allergies No known [...] at this [facility]. [facility]21 08/18/2024 Assessment & [...] ot due to ingrown toenail 07/16/2021 08/18/2024 Immunizations Immunization Administration Dates Next Due DTaP [...] 08/18/2024 1:44 PM CDT Plan of Treatment Not on file Procedures Procedure Name Priority Date/Time Associated Diagnosis Comments BLOOD MISC TO FUENTES Routine 08/18/2024 3: 01 PM CDT IGE [...] rhinitis, unspecified seasonality, unspecified trigger ALLERGEN SYCAMORE BAHAMIAN (TREE) IGE Routine 08/18/2024 3:01 PM CDT [...] rhinitis, unspecified seasonality, unspecified trigger ALLERGEN PLANTAIN TAJIK (WEED) IGE Routine 08/18/2024 3:01 PM CDT [...] rhinitis, unspecified seasonality, unspecified trigger ALLERGEN COCKROACH BAHAMIAN (INSECT) IGE Routine 08/18/2024 3:01 PM CDT [...] BLOOD ORDERABLES Final Result Performing Organization Address City/[facility] Co de Phone Number [facility] [place] [address] * Allergen Rat mix (animal) IgE (08/18/2024 3:01 PM CDT) [facility] Rat mix IgE <0.10 0.00 - 0.34 kUnits/L Blood 08/18/2024 3:01 PM CDT 08/18/2024 6:01 PM CDT Result [facility] Niesha Olivarez MD LAB BLOOD ORDERABLES Final Result Performing Organization Address [facility] Co de Phone Number [facility] [place] [address] * Allergen Mouse mix (animal) IgE (08/18/2024 3:01 PM CDT) [facility] Mouse mix IgE <0.10 0.00 - 0.34 kUnits/L Blood 08/18/2024 3:01 PM CDT 08/18/2024 6:01 PM CDT Niesha Olivarez MD LAB BLOOD ORDERABLES Final Result Performing Organization Address City/[facility] Co de Phone Number [facility] [place] [address] * BLOOD MISC TO OBION (08/18/2024 3:01 PM CDT) Test name, chem FZCCE Zucchini IgE Fuentes ref Lab Misc See Footnote [facility]EV [facility] Comment: Test Result Flag Unit RefValue Darrelucchini IgE <0.35 kU/L <0.35 Class 0 CLASS INTERPRETATION: <0.35 kU/L=0, Below Detection; 0.35-0.69 kU/L= 1, Low Positive; 0.70-3.49 kU/L= 2, Moderate Positive; 3.50-17.49 kU/L= 3, Positive; 17.50-49.99 kU/L= 4, Strong Positive; >49.99 kU/L= 5, Very Strong Positive *This test was developed and its performance characteristics determined by [employer]. It has not been cleared or approved by the U.S. Food and Drug Administration. FLAG Interpretation: A = Abnormal, H = High, L = Low Test Performed by: [employer] [address] [place] [address] Blood 08/18/2024 3:01 PM CDT 08/18/2024 7:30 PM CDT Niesha Olivarez MD LAB BLOOD ORDERABLES Final Result Performing Organization Address [facility] Co de Phone Number [facility] [place] [address] [facility] * Allergen Peanut component 9 (food) IgE (08/18/2024 3:01 PM CDT) Peanut comp 9 IgE <0.10 0.00 - 0.34 kUnits/L Blood 08/18/2024 3:01 PM CDT 08/18/2024 6:01 PM CDT Niesha Olivarez MD LAB BLOOD ORDERABLES Final Result Performing Organization Address City/[facility] Co de Phone Number BEV [facility] Department [place] [address] * Allergen Peanut component 8 (food) IgE (08/18/2024 3:01 PM CDT) Peanut comp 8 IgE <0.10 0.00 - 0.34 kUnits/L Blood 08/18/2024 3:01 PM CDT 08/18/2024 6:01 PM CDT Niesha Olivarez MD LAB [place] [address] * Allergen Peanut component 3 (food) IgE (08/18/2024 3:01 PM CDT) Peanut comp 3 IgE <0.10 0.00 - 0.34 kUnits/L Blood 08/18/2024 3:01 PM CDT 08/18/2024 6:01 PM CDT Niesha Olivarez MD LAB BLOOD ORDERABLES Final Result Performing Organization Address City/[facility]/[place] [address] * Allergen Peanut component 2 (food) IgE (08/18/2024 3:01 PM CDT) Peanut comp 2 IgE <0.10 0.00 - 0.34 kUnits/L Blood 08/18/2024 3:01 PM CDT 08/18/2024 6:01 PM CDT Niesha Olivarez MD LAB BLOOD ORDERABLES Final Result Performing Organization Address City/[facility]/ZIP Co de Phone Number [facility] [place] [address] * Allergen Peanut component 1 (food) IgE (08/18/2024 3:01 PM CDT) Peanut comp 1 IgE <0.10 0.00 - 0.34 kUnits/L Blood 08/18/2024 3:01 PM CDT 08/18/2024 6:01 PM CDT Niesha Olivarez MD LAB BLOOD ORDERABLES Final Result [facility] [place] [address] * Allergen Penicillium chrysogenum (mold) IgE (08/18/2024 3:01 PM CDT) Penicillium chrysogenum IgE <0.10 0.00 - 0.34 kUnits/L Blood 08/18/2024 3:01 PM CDT 08/18/2024 6:01 PM CDT Niesha Olivarez MD LAB BLOOD ORDERABLES Final Result Performing Organization Address City/[facility]/ZIP Co de Phone Number [facility] Department [place] [address] * Allergen Parkin (tree) IgE (08/18/2024 3:01 PM CDT) Parkin IgE <0.10 0.00 - 0.34 kUnits/L Blood 08/18/2024 3:01 PM CDT 08/18/2024 6:01 PM CDT Niesha Olivarez MD LAB BLOOD ORDERABLES Final Result Performing Organization Address City/[facility]/ZIP Co de Phone Number [facility] [place] [address] * Allergen Mountain juniper (tree) IgE (08/18/2024 3:01 PM CDT) Mountain juniper IgE <0.10 0.00 - 0.34 kUnits/L Blood 08/18/2024 3:01 PM CDT 08/18/2024 6:01 PM CDT Niesha Olivarez MD LAB BLOOD ORDERABLES Final Result Performing Organization Address City/[facility] Co de Phone Number [facility] [place] [address] * Allergen Bermuda grass (grass) IgE (08/18/2024 3:01 PM CDT) Bermuda grass IgE <0.10 0.00 - 0.34 kUnits/L Blood 08/18/2024 3:01 PM CDT 08/18/2024 6:01 PM CDT Niesha Olivarez MD LAB BLOOD ORDERABLES Final Result Performing Organization Address [facility] Co de Phone Number [facility] [place] [address] * Allergen Plantain british virgin islander (weed) IgE (08/18/2024 3:01 PM CDT) Plantain british virgin islander IgE <0.10 0.00 - 0.34 kUnits/L Blood 08/18/2024 3:01 PM CDT 08/18/2024 6:01 PM CDT Niesha Olivarez MD LAB BLOOD ORDERABLES Final Result Performing Organization Address City/[facility] [place] [place] [address] * Allergen Potato (food) IgE (08/18/2024 3:01 PM CDT) Potato IgE <0.10 0.00 - 0.34 kUnits/L Blood 08/18/2024 3:01 PM CDT 08/18/2024 6:01 PM CDT Niesha Olivarez MD LAB BLOOD ORDERABLES Final Result Performing Organization Address [facility] Co de Phone Number [facility] [place] [address] * Allergen [place] (food) IgE (08/18/2024 3:01 PM CDT) [place] IgE <0.10 0.00 - 0.34 kUnits/L Blood 08/18/2024 3:01 PM CDT 08/18/2024 6:01 PM CDT Niesha Olivarez MD LAB BLOOD ORDERABLES Final Result Performing Organization Address [facility] Co de Phone Number [facility] Department [place] [address] * Allergen Tomato (food) IgE (08/18/2024 3:01 PM CDT) Tomato IgE <0.10 0.00 - 0.34 kUnits/L Blood 08/18/2024 3:01 PM CDT 08/18/2024 6:01 PM CDT Niesha Olivarez MD LAB BLOOD ORDERABLES Final Result Performing Organization Address [facility] Co de Phone Number [facility] [place] [address] * Allergen Hettinger (food) IgE (08/18/2024 3:01 PM CDT) Hettinger IgE <0.10 0.00 - 0.34 kUnits/L Blood 08/18/2024 3:01 PM CDT 08/18/2024 6:01 PM CDT Niesha Olivarez MD LAB BLOOD ORDERABLES Final Result Performing Organization Address City/[facility] Co de Phone Number [facility] [place] [address] * Allergen Elm (tree) IgE (08/18/2024 3:01 PM CDT) Elm IgE <0.10 0.00 - 0.34 kUnits/L Blood 08/18/2024 3:01 PM CDT 08/18/2024 6:01 PM CDT Niesha Olivarez MD LAB BLOOD ORDERABLES Final Result Performing Organization Address [facility] Co de Phone Number [facility] [place] [address] * Allergen Cladosporium herbarum (mold) IgE (08/18/2024 3:01 PM CDT) Cladosporium herbarum IgE <0.10 0.00 - 0.34 kUnits/L Blood 08/18/2024 3:01 PM CDT 08/18/2024 6:01 PM CDT Niesha Olivarez MD LAB BLOOD ORDERABLES Final Result Performing Organization Address [facility] Co de Phone Number [facility]EV [facility] Department [place] [address] * Allergen Birch common silver (tree) IgE (08/18/2024 3:01 PM CDT) Birch common silver IgE <0.10 0.00 - 0.34 kUnits/L Blood 08/18/2024 3:01 PM CDT 08/18/2024 6:01 PM CDT Niesha Olivarez MD LAB BLOOD ORDERABLES Final Result Performing Organization Address City/[facility] Co de Phone Number [facility] [place] [address] * Allergen Alternaria tenuis (mold) IgE (08/18/2024 3:01 PM CDT) Alternaria tenius IgE <0.10 0.00 - 0.34 kUnits/L Blood 08/18/2024 3:01 PM CDT 08/18/2024 6:01 PM CDT Niesha Olivarez MD LAB BLOOD ORDERABLES Final Result Performing Organization Address [facility] Co de Phone Number [facility] [place] [address] * Allergen Aspergillus fumigatus (mold) IgE (08/18/2024 3:01 PM CDT) Aspergillus fumigatus IgE <0.10 0.00 - 0.34 kUnits/L Blood 08/18/2024 3:01 PM CDT 08/18/2024 6:01 PM CDT Niesha Olivarez MD LAB BLOOD ORDERABLES Final Result Performing Organization Address [facility] Co de Phone Number [facility] Department [place] [address] * Allergen Dermatophagoides pteronyssinus (insect) IgE (08/18/2024 3:01 PM CDT) Dermatophyton pteronyssinus IgE <0.10 0.00 - 0.34 kUnits/L Blood 08/18/2024 3:01 PM CDT 08/18/2024 6:01 PM CDT Niesha Olivarez MD LAB BLOOD ORDERABLES Final Result Performing Organization Address City/[facility] Co de Phone Number [facility] [place] [address] * Allergen Dermatophagoides farniae (insect) IgE (08/18/2024 3:01 PM CDT) Dermatophyton farinae IgE <0.10 0.00 - 0.34 kUnits/L Blood 08/18/2024 3:01 PM CDT 08/18/2024 6:01 PM CDT Niesha Olivarez MD LAB B[place] [address] * Allergen Peanut (food) IgE (08/18/2024 3:01 PM CDT) Peanut IgE <0.10 0.00 - 0.34 kUnits/L Blood 08/18/2024 3:01 PM CDT 08/18/2024 6:01 PM CDT Result [facility] Niesha Olivarez MD LAB BLOOD ORDERABLES Final Result Performing Organization Address City/[facility]/ZIP Co de Phone Number [facility] [place] [address] * Allergen Epithelia/dander dog (animal) IgE (08/18/2024 3:01 PM CDT) Dog dander IgE <0.10 0.00 - 0.34 kUnits/L Blood 08/18/2024 3:01 PM CDT 08/18/2024 6:01 PM CDT Niesha Olivarez MD LAB BLOOD ORDERABLES Final Result Performing Organization Address City/[facility]/ZIP Co de Phone Number [facility] [place] [address] * Allergen Pineapple (food) IgE (08/18/2024 3:01 PM CDT) Pineapple IgE <0.10 0.00 - 0.34 kUnits/L Blood 08/18/2024 3:01 PM CDT 08/18/2024 6:01 PM CDT Niesha Olivarez MD LAB BLOOD ORDERABLES Final Result Performing Organization Address City/[facility]/ZIP Co de Phone Number [facility] Department [place] [address] * Allergen Cockroach luxembourger (insect) IgE (08/18/2024 3:01 PM CDT) Cockroach IgE <0.10 0.00 - 0.34 kUnits/L Blood 08/18/2024 3:01 PM CDT 08/18/2024 6:01 PM CDT Niesha Olivarez MD LAB BLOOD ORDERABLES Final Result Performing Organization Address City/[facility] Co de Phone Number [facility] [place] [address] * Allergen Epithelia/dander cat (animal) IgE (08/18/2024 3:01 PM CDT) Cat dander IgE <0.10 0.00 - 0.34 kUnits/L Blood 08/18/2024 3:01 PM CDT 08/18/2024 6:01 PM CDT Niesha Olivarez MD LAB BLOOD ORDERABLES Final Result Performing Organization Address City/[facility]/ZIP Co de Phone Number [facility] Department [place] [address] * Allergen Ragweed short/common (weed) IgE (08/18/2024 3:01 PM CDT) Ragweed common IgE <0.10 0.00 - 0.34 kUnits/L Blood 08/18/2024 3:01 PM CDT 08/18/2024 6:01 PM CDT Niesha Olivarez MD LAB BLOOD ORDERABLES Final Result Performing Organization Address City/[facility] Co de Phone Number [facility] [place] [address] * Allergen Pigweed, rough (weed) IgE (08/18/2024 3:01 PM CDT) Pigweed rough IgE <0.10 0.00 - 0.34 kUnits/L Blood 08/18/2024 3:01 PM CDT 08/18/2024 6:01 PM CDT Niesha Olivarez MD LAB BLOOD ORDERABLES Final Result Performing Organization Address [facility] Co de Phone Number [facility] [place] [address] * Allergen Nettle (weed) IgE (08/18/2024 3:01 PM CDT) Nettle IgE <0.10 0.00 - 0.34 kUnits/L Blood 08/18/2024 3:01 PM CDT 08/18/2024 6:01 PM CDT Niesha Olivarez MD LAB BLOOD ORDERABLES Final Result Performing Organization Address City/[facility] Co de Phone Number [facility] [place] [address] * Allergen Castro's quarter (weed) IgE (08/18/2024 3:01 PM CDT) Castro's quarters IgE <0.10 0.00 - 0.34 kUnits/L Blood 08/18/2024 3:01 PM CDT 08/18/2024 6:01 PM CDT Result [facility] Niesha Olivarez MD LAB BLOOD ORDERABLES Final Result Performing Organization Address [facility] de Phone Number [facility] [place] [address] * Allergen Rigoberto grass (grass) IgE (08/18/2024 3:01 PM CDT) Rigoberto grass IgE <0.10 0.00 - 0.34 kUnits/L Blood 08/18/2024 3:01 PM CDT 08/18/2024 6:01 PM CDT Result [facility] Niesha Olivarez MD LAB BLOOD ORDERABLES Final Result Performing Organization Address [facility] Co de Phone Number [facility] [place] [address] * Allergen Parker grass (grass) IgE (08/18/2024 3:01 PM CDT) Parker grass IgE <0.10 0.00 - 0.34 kUnits/L Blood 08/18/2024 3:01 PM CDT 08/18/2024 6:01 PM CDT Result [facility] Niesha Olivarez MD LAB BLOOD ORDERABLES Final Result Performing Organization Address [facility] Co de Phone Number [facility] [place] [address] * Allergen Salineno (tree) IgE (08/18/2024 3:01 PM CDT) Salineno (tree) IgE <0.10 0.00 - 0.34 kUnits/L Blood 08/18/2024 3:01 PM CDT 08/18/2024 6:01 PM CDT Niesha Olivarez MD LAB BLOOD ORDERABLES Final Result Performing Organization Address [facility] Co de Phone Number [facility] [place] [address] * Allergen [place] luxembourger (tree) IgE (08/18/2024 3:01 PM CDT) [place] IgE <0.10 0.00 - 0.34 kUnits/L Blood 08/18/2024 3:01 PM CDT 08/18/2024 6:01 PM CDT Niesha Olivarez MD LAB BLOOD ORDERABLES Final Result Performing Organization Address [facility] de Phone Number [facility] Department [place] [address] * Allergen Maple/Box elder (tree) IgE (08/18/2024 3:01 PM CDT) Maple/box elder IgE <0.10 0.00 - 0.34 kUnits/L Blood 08/18/2024 3:01 PM CDT 08/18/2024 6:01 PM CDT Niesha Olivarez MD LAB BLOOD ORDERABLES Final Result Performing Organization Address [facility] Co de Phone Number [facility] [place] [address] * Allergen Tea (food) IgE (08/18/2024 3:01 PM CDT) Tea IgE <0.10 0.00 - 0.34 kUnits/L Blood 08/18/2024 3:01 PM CDT 08/18/2024 6:01 PM CDT Niesha Olivarez MD LAB BLOOD ORDERABLES Final Result Performing Organization Address [facility] Co de Phone Number [facility] [place] [address] * Allergen Wrens red (tree) IgE (08/18/2024 3:01 PM CDT) Wrens IgE <0.10 0.00 - 0.34 kUnits/L Blood 08/18/2024 3:01 PM CDT 08/18/2024 6:01 PM CDT Niesha Olivarez MD LAB BLOOD ORDERABLES Final Result Performing Organization Address [facility] de Phone Number [facility] [place] [address] * IgE (08/18/2024 3:01 PM CDT) IgE 38 <=100 IUnits/mL Blood 08/18/2024 3:01 PM CDT 08/18/2024 6:01 PM CDT Result [facility] Niesha Olivarez MD LAB BLOOD ORDERABLES Final Result Performing Organization Address [facility] Phone Number [facility] [place] [address] * CT Abdomen Pelvis W Contrast (07/27/2024 [...] by Orlin Anderson M.D. T: Report ID: [id number] Reading Location: [place] [address] Procedure Note Orlin Anderson Jr., MD - [...] by Orlin Anderson M.D. T: Report ID: [id number] Reading Location: [id number] Carlos Londono MD IMG CT PROCEDURES Final [...] Clint Garcia M.D. KT T: Report ID: [id number] Reading Location: [place] [address] Procedure Note Clint Garcia MD - 07/06/2024 [...] Clint Garcia M.D. KT T: Report ID: [id number] Reading Location: [id number] Paul MARKS IMG CT PROCEDURES Final Resu [...] Clint Garcia M.D. KT T: Report ID: [id number] Reading Location: [id number] Procedure Note Clint Garcia MD - 07/06/2024 [...] Clint Garcia M.D. KT T: Report ID: [id number] Reading Location: [id number] Paul MARKS IMG CT PROCEDURES Final Resu [...] CDT 07/06/2024 9:03 PM CDT Angie Espinal MOTOR PATROL OPERATOR LAB BLOOD ORDERABLES Fin al Result [place] [address] [facility] Department [place] [address] * Differential, auto (07/06/2024 9:00 PM CDT) Pathologist [facility] Neutrophil abs 4.56 1.50 - 6.50 K/cumm Imm gran abs 0.02 0.00 - 0.10 K/cumm [facility] Lymphocyte abs 2.88 0.80 - 3.30 K/cumm [facility] Monocyte abs 0.65 0.20 - 0.80 K/cumm [facility] Eosinophil abs 0.11 0.00 - 0.50 K/cumm [facility] Basophil abs 0.04 0.00 - 0.10 K/cumm [facility] Neutrophil pct 55.2 % [facility] Comment: Interpretive Data Percent cell count reference ranges are not reported, since discordance with absolute values may lead to misinterpretation of CBC data. Current Interpretive Data was last revised on 2017. Imm gran pct 0.2 % [facility] Comment: Interpretive Data Percent cell count reference ranges are not reported, since discordance with absolute values may lead to misinterpretation of CBC data. Current Interpretive Data was last revised on 2017. Lymphocyte pct 34.9 % [facility] Comment: Interpretive Data Percent cell count reference ranges are not reported, since discordance with absolute values may lead to misinterpretation of CBC data. Current Interpretive Data was last revised on 2017. Monocyte pct 7.9 % [facility] Comment: Interpretive Data Percent cell count reference ranges are not reported, since discordance with absolute values may lead to misinterpretation of CBC data. Current Interpretive Data was last revised on 2017. Eosinophil pct 1.3 % [facility] Comment: Interpretive Data Percent cell count reference ranges are not reported, since discordance with absolute values may lead to misinterpretation of CBC data. Current Interpretive Data was last revised on 2017. Basophil pct 0.5 % [facility] Comment: Interpretive Data Percent cell count reference ranges are not reported, since discordance with absolute values may lead to misinterpretation of CBC data. Current Interpretive Data was last revised on 2017. Blood 07/06/2024 9:00 PM CDT 07/06/2024 9:03 PM CDT Angie Espinal MOTOR PATROL OPERATOR LAB BLOOD ORDERABLES Fin al Result [facility] [address] [facility] Department [place] [address] * CBC with auto differential (07/06/2024 9:00 PM CDT) WBC 8.26 3.80 - 9.90 K/cumm Hgb 13.6 11.9 - 15.5 g/dL [facility] Hct 40.4 35.6 - 45.5 % [facility] Plt 266 150 - 400 K/cumm [facility] MPV 9.6 9.1 - 12.3 fL [facility] RBC 4.93 3.90 - 5.20 M/cumm [facility] MCV 81.9 81.3 - 96.4 fL [facility] MCH 27.6 27.1 - 33.3 pg [facility] MCHC 33.7 32.3 - 35.7 g/dL [facility] RDW CV 12.6 11.1 - 14.9 % [facility] RDW SD 37.6 35.7 - 48.1 fL [facility] NRBC abs 0.00 0.00 - 0.01 K/cumm [facility] Blood 07/06/2024 9:00 PM CDT 07/06/2024 9:03 PM CDT us Angie Espinal NP LAB BLOOD ORDERABLES Fin al Result [facility] [address] [facility] Department [place] [address] * Comprehensive metabolic panel (07/06/2024 9:00 PM CDT) Sodium 139 135 - 145 mmol/L Potassium, pl 4.0 3.3 - 4.9 mmol/L [facility] Comment:Hemolyzed; Potassium value may be falsely elevated by as much as 1.0 mmol/L. Suggest redraw and reanalysis. Chloride 104 97 - 110 mmol/L [facility] CO2 23 22 - 32 mmol/L [facility] Anion gap 12 2 - 15 mmol/L [facility] BUN 13 6 - 25 mg/dL [facility] Creatinine 0.75 0.60 - 1.10 mg/dL [facility] Glucose 93 70 - 199 mg/dL [facility] Comment: Interpretive Data Fasting glucose >/= [...] 2022. Calcium 9.3 8.5 - 10.3 mg/dL [facility] Bilirubin, total 0.2 0.1 - 1.2 mg/dL [facility] Protein, pl 7.3 6.5 - 8.5 g/dL [facility] Albumin 4.2 3.5 - 5.0 g/dL [facility] Alk phos 85 40 - 130 Units/L [facility] ALT 15 7 - 45 Units/L [facility] AST 20 10 - 45 Units/L [facility] Blood 07/06/2024 9:00 PM CDT 07/06/2024 9:03 PM CDT Angie Espinal NP LAB BLOOD ORDERABLES Fin al Result [facility] [address] [facility] Department [place] [address] * POCT hCG, urine (07/06/2024 8:49 PM CDT) Pathologist [facility] HCG, ur, POC Negative Negative Lot Number [id number] QC Backgroud Clear Acceptable QC Control Line Acceptable Urine 07/06/2024 8:49 PM CDT Angie Espinal NP POINT OF CARE TEST ORDER MICHELLE Final Result * N. gonorrhoeae/C. trachomatis Amplification Urine (07/16/2021 2:14 PM CDT) Pathologist [facility] C. trachomatis Not detected Not detected BEV N. gonorrhoeae Not detected Not detected BEV Comment: Testing performed by the [facility]. This assay detects Chlamydia trachomatis [...] LAB MICROBIOLOGY - GENERAL ORDERABLES Final Result [facility] [address] Department [place] [address] from Last 3 Months or Most Recently Relevant to Health Maintenance [place] [employer] [place] [employer] [place] [employer] Care Teams Timber Selector Relationship Specialty Start Date End Date Denis Nava MD [address] [place] [address] PCP - General Family Medicine 07/16/21 Gordo Rivera MD [address] [address] Endocrinology Diabetes & Metabolism 07/16/21
--- OUTSIDE RECORDS SUMMARY | 2024-09-22 10:18 | XMS_ITS | Encounter Summary ---
Author Organization [facility] Address [address] [place] [address] Phone Care Team Providers Care Feather Edger Name Role Phone Denis Nava MD Primary Care Provider [phone] Gordo Rivera MD Unavailable [phone] Encounter Details Date Type Department Care Team (Late st Contact Info) Description 08/23/2024 Results Follow-Up [facility] Allergy and Immunology [address] [facility] [address] [place] [address] Niesha Olivarez MD [address] [facility] [address] [place] [address] IgE Social History Tobacco Use Types Packs/Day Years [...] Date Job 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
--- OUTSIDE RECORDS SUMMARY | 2024-09-22 10:48 | XMS_ITS | Clinical Summary ---
Author Organization [facility] Address [address] [place] [address] Care Team Providers Care Furnace Builder Name Role Phone Unknown, Provider Primary Care Provider Unavaila ble Source Comments [facility],non-owned Affiliates and Associated Physician Practices is amultiple site organization consisting of ambulatory clinics and hospital sitesin [place], [place], [place] and [place]. This disclosure is being madepursuant to the Care Everywhere program and may not contain all information available regarding this patient. Last updated 17.[facility] Allergies No known active allergies Medications * [...] patient's age to complete this topic Insurance [facility] Care Teams Furnace Builder Relationship Specialty Start Date End Date Unknown, Provider PCP - General 01/25/21
--- OUTSIDE RECORDS SUMMARY | 2024-09-22 10:48 | XMS_ITS | Encounter Summary ---
Author Organization [facility] Address [facility] [place] [address] Care Team Providers Care Dictaphone Transcriber Name Role Phone Non-Staff, Provider Primary Care Provider Jacki gomez Encounter Details Date Type Department Care Team (Late st Contact Info) Description 09/21/2024 [employer] Message [facility] Patient Accounts [address] [place] [address] [place] Provider Auto Payment declined Social History Tobacco Use Types Packs/Day Years Used Date Smoking Tobacco: Never Smokeless Tobacco: Never Alcohol Use Standard Drinks/Week Comments Never 0 (1 standard drink = 0.6 oz pur e alcohol) Comments No Sex and Gender Information Value Date Recorded Sex Assigned at Female 04/07/2024 10:01 PM 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
--- OUTSIDE RECORDS SUMMARY | 2024-09-22 10:49 | XMS_ITS | Encounter Summary ---
Author Organization [facility] Address [address] [place] [address] Phone Care Team Providers Care Stunt Double Name Role Phone Denis Nava MD Primary Care Provider [phone] Gordo Rivera MD Unavailable [phone] Encounter Details Date Type Department Care Team (Late st Contact Info) Description 08/23/2024 Results Follow-Up [facility] Allergy and Immunology [address] [facility] [address] [place] [address] Niesha Olivarez MD [address] [facility] [address] [place] [address] IgE Social History Tobacco Use Types Packs/Day [...] on filedocumented in this encounter Care Teams Stunt Double Relationship Specialty Start Date End Date Denis Nava MD [address] [place] [id number] PCP - General Family Medicine 07/16/21 Gordo Rivera MD [address] [address] Endocrinology Diabetes & Metabolism 07/16/21 documented as of this encounter
--- OUTSIDE RECORDS SUMMARY | 2024-09-22 10:49 | XMS_ITS | Clinical Summary ---
Author Organization [facility] [place] [address] Address [address] [place] [phone] Care Team Providers Care Emt B Name Role Phone Denis Nava MD Primary Care Provider [phone] Gordo Rivera MD Unavailable [phone] Allergies No known active allergies Medications [...] at this time. Encounter for medical examin [facility] to establish care 07/16/2021 08/18/2024 Assessment & [...] Type Department Care Team Description 09/10/2024 Telephone [facility] [address] [facility] [address] [place] [phone] Ashley Smith RN 09/06/2024 Telephone [facility] [address] [facility] [address] [place] [phone] Ashley Smith RN 08/31/2024 Telephone [facility] [address] [facility] [address] [place] [phone] Ashley Smith RN 08/23/2024 Results Follow-Up [facility] [address] [facility] [address] [place] [phone] Niesha Olivarez MD IgE 08/18/2024 5:05 PM CDT - 08/18/2024 11:59 PM CDT Hospital Encounter [facility] [address] [place] [address] Discharge Disposition: Discharge to home or self care 08/18/2024 3:00 PM CDT Lab [facility] at the [address] [phone] Adverse food reaction, initial encounter; Allergic rhinitis, unspecified seasonality, unspecified trigger 08/18/2024 2:00 PM CDT Office Visit [facility] [address] [place] [address] [address] [place] [phone] Niesha Olivarez MD Adverse food reaction, initial encounter (Primary Dx); Allergic rhinitis, unspecified seasonality, unspecified trigger 07/27/2024 1:46 PM CDT - 07/27/2024 11:59 PM CDT Hospital Encounter [facility] [address] [place] [address] Diarrhea, unspecified type Discharge Disposition: Discharge to home or self care 07/06/2024 11:08 PM CDT - 07/06/2024 11:50 PM CDT Emergency [facility] [address] [place] [address] Dysphagia, unspecified type (Primary Dx) Discharge Disposition: [...] Date/Time Associated Diagnosis Comments BLOOD MISC TO HEPZIBAH Routine 08/18/2024 3: 01 PM CDT IGE [...] rhinitis, unspecified seasonality, unspecified trigger ALLERGEN SYCAMORE BAHRAINI (TREE) IGE Routine 08/18/2024 3:01 PM CDT [...] rhinitis, unspecified seasonality, unspecified trigger ALLERGEN PLANTAIN KHMER (WEED) IGE Routine 08/18/2024 3:01 PM CDT [...] rhinitis, unspecified seasonality, unspecified trigger ALLERGEN COCKROACH BAHRAINI (INSECT) IGE Routine 08/18/2024 3:01 PM CDT [...] Olivarez MD LAB BLOOD ORDERABLES Final Result [facility] [place] [address] * Allergen Rat mix (animal) IgE (08/18/2024 3:01 PM CDT) Rat mix IgE <0.10 0.00 - 0.34 kUnits/L Blood 08/18/2024 3:01 PM CDT 08/18/2024 6:01 PM CDT Niesha Olivarez MD LAB BLOOD ORDERABLES Final Result Performing Organization Address [email or web address]] de Phone Number [facility] [place] [employer] [place] [address] * Allergen Mouse mix (animal) IgE (08/18/2024 3:01 PM CDT) [facility] Mouse mix IgE <0.10 0.00 - 0.34 kUnits/L Blood 08/18/2024 3:01 PM CDT 08/18/2024 6:01 PM CDT Niesha Olivarez MD LAB BLOOD ORDERABLES Final Result Performing Organization Address [facility] [[email or web address]] de Phone Number [facility] [employer] [place] [address] * BLOOD MISC TO HEPZIBAH (08/18/2024 3:01 PM CDT) Test name, chem FZCCE Jay[place]ini IgE [place] ref Lab Misc See Footnote BEV [facility] Comment: Test Result Flag Unit RefValue Zucchini IgE <0.35 kU/L <0.35 Class 0 CLASS INTERPRETATION: <0.35 kU/L=0, Below Detection; 0.35-0.69 kU/L= 1, Low Positive; 0.70-3.49 kU/L= 2, Moderate Positive; 3.50-17.49 kU/L= 3, Positive; 17.50-49.99 kU/L= 4, Strong Positive; >49.99 kU/L= 5, Very Strong Positive *This test was developed and its performance characteristics determined by [employer]. It has not been cleared or approved by the U.S. Food and Drug Administration. FLAG Interpretation: A = Abnormal, H = High, L = Low Test Performed by: [employer] [id number] [address] Blood 08/18/2024 3:01 PM CDT 08/18/2024 7:30 PM CDT Niesha Olivarez MD LAB BLOOD ORDERABLES Final Result Performing Organization Address [facility] Co de Phone Number [facility] [place] [address] [facility] * Allergen Peanut component 9 (food) IgE (08/18/2024 3:01 PM CDT) Peanut comp 9 IgE <0.10 0.00 - 0.34 kUnits/L Blood 08/18/2024 3:01 PM CDT 08/18/2024 6:01 PM CDT Niesha Olivarez MD LAB BLOOD ORDERABLES Final Result Performing Organization Address City/[facility] Co de Phone Number [facility] Department [place] [address] * Allergen Peanut component 8 (food) IgE (08/18/2024 3:01 PM CDT) Peanut comp 8 IgE <0.10 0.00 - 0.34 kUnits/L Blood 08/18/2024 3:01 PM CDT 08/18/2024 6:01 PM CDT us Niesha Olivarez MD LAB BLOOD ORDERABLES Final Result Performing Organization Address [facility] Co de Phone Number [facility] [place] [place] [address] * Allergen Peanut component 3 (food) IgE (08/18/2024 3:01 PM CDT) Peanut comp 3 IgE <0.10 0.00 - 0.34 kUnits/L Blood 08/18/2024 3:01 PM CDT 08/18/2024 6:01 PM CDT Niesha Olivarez MD LAB BLOOD ORDERABLES Final Result Performing Organization Address [facility] de Phone Number [facility] [place] [address] * Allergen Peanut component 2 (food) IgE (08/18/2024 3:01 PM CDT) Peanut comp 2 IgE <0.10 0.00 - 0.34 kUnits/L Blood 08/18/2024 3:01 PM CDT 08/18/2024 6:01 PM CDT Result [facility] Niesha Olivarez MD LAB BLOOD ORDERABLES Final Result Performing Organization Address [facility] Co de Phone Number [facility] [place] [address] * Allergen Peanut component 1 (food) IgE (08/18/2024 3:01 PM CDT) Peanut comp 1 IgE <0.10 0.00 - 0.34 kUnits/L Blood 08/18/2024 3:01 PM CDT 08/18/2024 6:01 PM CDT Niesha Olivarez MD LAB BLOOD ORDERABLES Final Result Performing Organization Address City/[facility]/ZIP Co de Phone Number [facility] [place] [place] [address] * Allergen Penicillium chrysogenum (mold) IgE (08/18/2024 3:01 PM CDT) Penicillium chrysogenum IgE <0.10 0.00 - 0.34 kUnits/L Blood 08/18/2024 3:01 PM CDT 08/18/2024 6:01 PM CDT Niesha Olivarez MD LAB BLOOD ORDERABLES Final Result Performing Organization Address [facility] [place] [address] * Allergen Rockport (tree) IgE (08/18/2024 3:01 PM CDT) [place]port IgE <0.10 0.00 - 0.34 kUnits/L Blood 08/18/2024 3:01 PM CDT 08/18/2024 6:01 PM CDT Niesha Olivarez MD LAB BLOOD ORDERABLES Final Result Performing Organization Address [facility] Co de Phone Number [facility] [place] [employer] [place] [address] * Allergen Mountain juniper (tree) IgE (08/18/2024 3:01 PM CDT) Mountain juniper IgE <0.10 0.00 - 0.34 kUnits/L Blood 08/18/2024 3:01 PM CDT 08/18/2024 6:01 PM CDT Niesha Olivarez MD LAB BLOOD ORDERABLES Final Result Performing Organization Address [facility] Co de Phone Number [facility] [place] [address] * Allergen Bermuda grass (grass) IgE (08/18/2024 3:01 PM CDT) Bermuda grass IgE <0.10 0.00 - 0.34 kUnits/L Blood 08/18/2024 3:01 PM CDT 08/18/2024 6:01 PM CDT Niesha Olivarez MD LAB BLOOD [place] [address] * Allergen Plantain jamaican (weed) IgE (08/18/2024 3:01 PM CDT) Plantain jamaican IgE <0.10 0.00 - 0.34 kUnits/L Blood 08/18/2024 3:01 PM CDT 08/18/2024 6:01 PM CDT Niesha Olivarez MD LAB BLOOD ORDERABLES Final Result Performing Organization Address City/[facility]/[place] [address] * Allergen Potato (food) IgE (08/18/2024 3:01 PM CDT) Potato IgE <0.10 0.00 - 0.34 kUnits/L Blood 08/18/2024 3:01 PM CDT 08/18/2024 6:01 PM CDT Niesha Olivarez MD LAB BLOOD [place] [address] * Allergen Wheelersburg (food) IgE (08/18/2024 3:01 PM CDT) [place] IgE <0.10 0.00 - 0.34 kUnits/L Blood 08/18/2024 3:01 PM CDT 08/18/2024 6:01 PM CDT Niesha Olivarez MD LAB BLOOD ORDERABLES Final Result Performing Organization Address [facility] Co de Phone Number [facility] [place] [place] [address] * Allergen Tomato (food) IgE (08/18/2024 3:01 PM CDT) Tomato IgE <0.10 0.00 - 0.34 kUnits/L Blood 08/18/2024 3:01 PM CDT 08/18/2024 6:01 PM CDT Result [facility] Niesha Olivarez MD LAB BLOOD ORDERABLES Final Result Performing Organization Address [facility] [[email or web address]] de Phone Number [facility] [place] [place] [address] * Allergen Mann[place]ville (food) IgE (08/18/2024 3:01 PM CDT) [place] IgE <0.10 0.00 - 0.34 kUnits/L Blood 08/18/2024 3:01 PM CDT 08/18/2024 6:01 PM CDT Result [facility] Niesha Olivarez MD LAB BLOOD ORDERABLES Final Result Performing Organization Address [email or web address] [place] [address] * Allergen Elm (tree) IgE (08/18/2024 3:01 PM CDT) Elm IgE <0.10 0.00 - 0.34 kUnits/L Blood 08/18/2024 3:01 PM CDT 08/18/2024 6:01 PM CDT Niesha Olivarez MD LAB BLOOD ORDERABLES Final Result Performing Organization Address [facility] Co de Phone Number [facility] [place] [address] * Allergen Cladosporium herbarum (mold) IgE (08/18/2024 3:01 PM CDT) Cladosporium herbarum IgE <0.10 0.00 - 0.34 kUnits/L Blood 08/18/2024 3:01 PM CDT 08/18/2024 6:01 PM CDT Niesha Olivarez MD LAB BLOOD ORDERABLES Final Result Performing Organization Address [facility] Co de Phone Number [facility] [place] [employer] [place] [address] * Allergen Birch common silver (tree) IgE (08/18/2024 3:01 PM CDT) Birch common silver IgE <0.10 0.00 - 0.34 kUnits/L Blood 08/18/2024 3:01 PM CDT 08/18/2024 6:01 PM CDT Niesha Olivarez MD LAB BLOOD ORDERABLES Final Result Performing Organization Address [facility] [place] [address] * Allergen Alternaria tenuis (mold) IgE (08/18/2024 3:01 PM CDT) Alternaria tenius IgE <0.10 0.00 - 0.34 kUnits/L Blood 08/18/2024 3:01 PM CDT 08/18/2024 6:01 PM CDT Niesha Olivarez MD LAB BLOOD ORDERABLES Final Result Performing Organization Address [facility] Co de Phone Number [facility] [place] [employer] [address] * Allergen Aspergillus fumigatus (mold) IgE (08/18/2024 3:01 PM CDT) Aspergillus fumigatus IgE <0.10 0.00 - 0.34 kUnits/L Blood 08/18/2024 3:01 PM CDT 08/18/2024 6:01 PM CDT Niesha Olivarez MD LAB BLOOD ORDERABLES Final Result Performing Organization Address [facility] Co de Phone Number [facility] [place] [employer] [place] [address] * Allergen Dermatophagoides pteronyssinus (insect) IgE (08/18/2024 3:01 PM CDT) Dermatophyton pteronyssinus IgE <0.10 0.00 - 0.34 kUnits/L Blood 08/18/2024 3:01 PM CDT 08/18/2024 6:01 PM CDT Niesha Olivarez MD LAB BLOOD ORDERABLES Final Result Performing Organization Address [facility] Co de Phone Number [facility] [place] [address] * Allergen Dermatophagoides farniae (insect) IgE (08/18/2024 3:01 PM CDT) Dermatophyton farinae IgE <0.10 0.00 - 0.34 kUnits/L Blood 08/18/2024 3:01 PM CDT 08/18/2024 6:01 PM CDT Niesha Olivarez MD LAB BLOOD ORDERABLES Final Result Performing Organization Address [facility] Co de Phone Number [facility] [place] [address] * Allergen Peanut (food) IgE (08/18/2024 3:01 PM CDT) Peanut IgE <0.10 0.00 - 0.34 kUnits/L Blood 08/18/2024 3:01 PM CDT 08/18/2024 6:01 PM CDT Niesha Olivarez MD LAB BLOOD ORDERABLES Final Result Performing Organization Address [email or web address]] de Phone Number [facility] [place] [address] * Allergen Epithelia/dander dog (animal) IgE (08/18/2024 3:01 PM CDT) Dog dander IgE <0.10 0.00 - 0.34 kUnits/L Blood 08/18/2024 3:01 PM CDT 08/18/2024 6:01 PM CDT Result [facility] Niesha Olivarez MD LAB BLOOD ORDERABLES Final Result Performing Organization Address [facility] Co de Phone Number [facility] [place] [address] * Allergen Pineapple (food) IgE (08/18/2024 3:01 PM CDT) Pineapple IgE <0.10 0.00 - 0.34 kUnits/L Blood 08/18/2024 3:01 PM CDT 08/18/2024 6:01 PM CDT Niesha Olivarez MD LAB BLOOD ORDERABLES Final Result Performing Organization Address [facility] Co de Phone Number [facility] [place] [address] * Allergen Cockroach ugandan (insect) IgE (08/18/2024 3:01 PM CDT) Cockroach IgE <0.10 0.00 - 0.34 kUnits/L Blood 08/18/2024 3:01 PM CDT 08/18/2024 6:01 PM CDT Niesha Olivarez MD LAB BLOOD ORDERABLES Final Result Performing Organization Address [email or web address] de Phone Number [facility] [place] [address] * Allergen Epithelia/dander cat (animal) IgE (08/18/2024 3:01 PM CDT) Cat dander IgE <0.10 0.00 - 0.34 kUnits/L Blood 08/18/2024 3:01 PM CDT 08/18/2024 6:01 PM CDT Niesha Olivarez MD LAB BLOOD ORDERABLES Final Result Performing Organization Address [facility] Co de Phone Number [facility] [place] [address] * Allergen Ragweed short/common (weed) IgE (08/18/2024 3:01 PM CDT) Ragweed common IgE <0.10 0.00 - 0.34 kUnits/L Blood 08/18/2024 3:01 PM CDT 08/18/2024 6:01 PM CDT Niesha Olivarez MD LAB BLOOD ORDERABLES Final Result Performing Organization Address [facility]/ZIP Co de Phone Number [facility] [place] [employer] [place] [address] * Allergen Pigweed, rough (weed) IgE (08/18/2024 3:01 PM CDT) Pigweed rough IgE <0.10 0.00 - 0.34 kUnits/L Blood 08/18/2024 3:01 PM CDT 08/18/2024 6:01 PM CDT Niesha Olivarez MD LAB BLOOD [place] [address] * Allergen Nettle (weed) IgE (08/18/2024 3:01 PM CDT) Nettle IgE <0.10 0.00 - 0.34 kUnits/L Blood 08/18/2024 3:01 PM CDT 08/18/2024 6:01 PM CDT Niesha Olivarez MD LAB BLOOD ORDERABLES Final Result [facility] [place] [address] * Allergen Castro's quarter (weed) IgE (08/18/2024 3:01 PM CDT) Castro's quarters IgE <0.10 0.00 - 0.34 kUnits/L Blood 08/18/2024 3:01 PM CDT 08/18/2024 6:01 PM CDT Niesha Olivarez MD LAB BLOOD ORDERABLES Final Result [facility] [place] [place] [address] * Allergen Rigoberto grass (grass) IgE (08/18/2024 3:01 PM CDT) Rigoberto grass IgE <0.10 0.00 - 0.34 kUnits/L Blood 08/18/2024 3:01 PM CDT 08/18/2024 6:01 PM CDT Niesha Olivarez MD LAB BLOOD ORDERABLES Final Result Performing Organization Address [facility] [place] [address] * Allergen Parker grass (grass) IgE (08/18/2024 3:01 PM CDT) Parker grass IgE <0.10 0.00 - 0.34 kUnits/L Blood 08/18/2024 3:01 PM CDT 08/18/2024 6:01 PM CDT Result [facility] Niesha Olivarez MD LAB BLOOD ORDERABLES Final Result Performing Organization Address [facility] Co de Phone Number [facility] Department [place] [place] [address] * Allergen Seaford (tree) IgE (08/18/2024 3:01 PM CDT) Seaford (tree) IgE <0.10 0.00 - 0.34 kUnits/L Blood 08/18/2024 3:01 PM CDT 08/18/2024 6:01 PM CDT Result [facility] Niesha Olivarez MD LAB BLOOD ORDERABLES Final Result Performing Organization Address [facility] Co de Phone Number [facility] [place] [address] * Allergen [place] ugandan (tree) IgE (08/18/2024 3:01 PM CDT) [place] IgE <0.10 0.00 - 0.34 kUnits/L Blood 08/18/2024 3:01 PM CDT 08/18/2024 6:01 PM CDT Niesha Olivarez MD LAB BLOOD ORDERABLES Final Result Performing Organization Address [facility] Co de Phone Number [facility] [place] [address] * Allergen Maple/Box elder (tree) IgE (08/18/2024 3:01 PM CDT) Maple/box elder IgE <0.10 0.00 - 0.34 kUnits/L Blood 08/18/2024 3:01 PM CDT 08/18/2024 6:01 PM CDT Niesha Olivarez MD LAB BLOOD ORDERABLES Final Result Performing Organization Address [email or web address]] de Phone Number [facility] [place] [address] * Allergen Tea (food) IgE (08/18/2024 3:01 PM CDT) Tea IgE <0.10 0.00 - 0.34 kUnits/L Blood 08/18/2024 3:01 PM CDT 08/18/2024 6:01 PM CDT Niesha Olivarez MD LAB BLOOD ORDERABLES Final Result Performing Organization Address [facility] Co de Phone Number [facility] [place] [address] * Allergen Calhoun red (tree) IgE (08/18/2024 3:01 PM CDT) Calhoun IgE <0.10 0.00 - 0.34 kUnits/L Blood 08/18/2024 3:01 PM CDT 08/18/2024 6:01 PM CDT Niesha Olivarez MD LAB BLOOD ORDERABLES Final Result Performing Organization Address [facility] Co de Phone Number [facility] [place] [address] * IgE (08/18/2024 3:01 PM CDT) IgE 38 <=100 IUnits/mL Blood 08/18/2024 3:01 PM CDT 08/18/2024 6:01 PM CDT Niesha Olivarez MD LAB BLOOD ORDERABLES Final Result Performing Organization Address [facility] [[email or web address]] de Phone Number [facility] [place] [address] * CT Abdomen Pelvis W Contrast (07/27/2024 [...] by Orlin Anderson M.D. T: Report ID: [id number] Reading Location: [id number] Procedure Note Orlin Anderson Jr., MD - [...] by Orlin Anderson M.D. T: Report ID: [id number] Reading Location: [id number] Carlos Londono MD IMG CT PROCEDURES Final [...] Clint Garcia M.D. KT T: Report ID: [id number] Reading Location: [place] [address] Procedure Note Clint Garcia MD - 07/06/2024 [...] Clint Garcia M.D. KT T: Report ID: [id number] Reading Location: [id number] Paul Boyce KENDRICK IMG CT PROCEDURES Final [...] Clint Garcia M.D. KT T: Report ID: [id number] Reading Location: [id number] Procedure Note Clint Gracia MD - 07/06/2024 EXAM DESCRIPTION: CT SOFT [...] Clint Garcia M.D. KT T: Report ID: [id number] Reading Location: [place] [address] PROCEDURES Final Resu [...] 07/06/2024 9:03 PM CDT us Angie Espinal [employer] LAB BLOOD ORDERABLES Fin al Result [facility] [address] [facility] Department [place] [address] * Differential, auto (07/06/2024 9:00 PM CDT) Neutrophil abs 4.56 1.50 - 6.50 K/cumm Imm gran abs 0.02 0.00 - 0.10 K/cumm [facility] Lymphocyte abs 2.88 0.80 - 3.30 K/cumm [facility] Monocyte abs 0.65 0.20 - 0.80 K/cumm [facility] Eosinophil abs 0.11 0.00 - 0.50 K/cumm [facility] Basophil abs 0.04 0.00 - 0.10 K/cumm [facility] Neutrophil pct 55.2 % [facility] Comment: Interpretive Data Percent cell count reference ranges are not reported, since discordance with absolute values may lead to misinterpretation of CBC data. Current Interpretive Data was last revised on 2017. Imm gran pct 0.2 % [facility] Comment: Interpretive Data Percent cell count reference ranges are not reported, since discordance with absolute values may lead to misinterpretation of CBC data. Current Interpretive Data was last revised on 2017. Lymphocyte pct 34.9 % [facility] Comment: Interpretive Data Percent cell count reference ranges are not reported, since discordance with absolute values may lead to misinterpretation of CBC data. Current Interpretive Data was last revised on 2017. Monocyte pct 7.9 % [facility] Comment: Interpretive Data Percent cell count reference ranges are not reported, since discordance with absolute values may lead to misinterpretation of CBC data. Current Interpretive Data was last revised on 2017. Eosinophil pct 1.3 % [facility] Comment: Interpretive Data Percent cell count reference ranges are not reported, since discordance with absolute values may lead to misinterpretation of CBC data. Current Interpretive Data was last revised on 2017. Basophil pct 0.5 % [facility] Comment: Interpretive Data Percent cell count reference ranges are not reported, since discordance with absolute values may lead to misinterpretation of CBC data. Current Interpretive Data was last revised on 2017. Blood 07/06/2024 9:00 PM CDT 07/06/2024 9:03 PM CDT Angie Espinal NP LAB BLOOD ORDERABLES Fin al Result [place] [address] [facility] Department [place] [address] * CBC with auto differential (07/06/2024 9:00 PM CDT) WBC 8.26 3.80 - 9.90 K/cumm Hgb 13.6 11.9 - 15.5 g/dL [facility] Hct 40.4 35.6 - 45.5 % [facility] Plt 266 150 - 400 K/cumm [facility] MPV 9.6 9.1 - 12.3 fL [facility] RBC 4.93 3.90 - 5.20 M/cumm [facility] MCV 81.9 81.3 - 96.4 fL [facility] MCH 27.6 27.1 - 33.3 pg [facility] MCHC 33.7 32.3 - 35.7 g/dL [facility] RDW CV 12.6 11.1 - 14.9 % [facility] RDW SD 37.6 35.7 - 48.1 fL [facility] NRBC abs 0.00 0.00 - 0.01 K/cumm [facility] Blood 07/06/2024 9:00 PM CDT 07/06/2024 9:03 PM CDT us Angie Espinal [employer]IST[employer] LAB BLOOD ORDERABLES Fin al Result [facility] [address] [facility] Department [place] [address] * Comprehensive metabolic panel (07/06/2024 9:00 PM CDT) Sodium 139 135 - 145 mmol/L Potassium, pl 4.0 3.3 - 4.9 mmol/L [facility] Comment:Hemolyzed; Potassium value may be falsely elevated by as much as 1.0 mmol/L. Suggest redraw and reanalysis. Chloride 104 97 - 110 mmol/L [facility] CO2 23 22 - 32 mmol/L [facility] Anion gap 12 2 - 15 mmol/L [facility] BUN 13 6 - 25 mg/dL [facility] Creatinine 0.75 0.60 - 1.10 mg/dL [facility] Glucose 93 70 - 199 mg/dL [facility] Comment: Interpretive Data Fasting glucose [...] 2022. Calcium 9.3 8.5 - 10.3 mg/dL [facility] Bilirubin, total 0.2 0.1 - 1.2 mg/dL [facility] Protein, pl 7.3 6.5 - 8.5 g/dL [facility] Albumin 4.2 3.5 - 5.0 g/dL [facility] Alk phos 85 40 - 130 Units/L [facility] ALT 15 7 - 45 Units/L [facility] AST 20 10 - 45 Units/L [facility] Blood 07/06/2024 9:00 PM CDT 07/06/2024 9:03 PM CDT Angie Silvastan Espinal [employer]IST[employer] LAB BLOOD ORDERABLES Fin al Result BEV [address] [facility] Department [place] [address] * POCT hCG, urine (07/06/2024 8:49 PM CDT) HCG, ur, POC Negative Negative Lot Number [id number] QC Backgroud Clear Acceptable QC Control Line Acceptable Urine 07/06/2024 8:49 PM CDT Angie Espinal [employer] LOAN ASSISTANT POINT OF CARE TEST ORDER MICHELLE Final Result * N. gonorrhoeae/C. trachomatis Amplification Urine (07/16/2021 2:14 PM CDT) C. trachomatis Not detected Not detected BEV N. gonorrhoeae Not detected Not detected BEV [facility] Comment: Testing performed by the [facility]. This assay detects Chlamydia trachomatis and [...] - GENERAL ORDERABLES Final Result BEV [place] [id number] [place] [address] from Last 3 Months or Most Recently Relevant to Health Maintenance Insurance [facility] [place] Member Subscriber Plan / Payer (Ef fective 2007-Present) Name:Margarette Cameron Relation to Subscriber:Child Name:MARGARETTE CAMERON Date of :2000 (Home) Address: [address] [place] [address] Payer ID:[id number] (NAIC) Type: ALLIANCE Address: [facility] [id number] [id number] Care Teams Emt B Relationship Specialty Start Date End Date Denis Nava MD [address] [place] [address] PCP - General Family Medicine 07/16/21 [place] [address] [place] [id number] Endocrinology Diabetes & Metabolism 07/16/21
--- OUTSIDE RECORDS SUMMARY | 2024-09-22 10:49 | XMS_ITS | Referral Summary ---
Author Organization [address] Address [address] [place] [phone] Care Team Providers Care Salesperson [employer] Name Role Phone Denis Nava MD Primary Care Provider [phone] Gordo Rivera MD Unavailable [phone] Encounters Date Type Department Care Team Description 09/10/2024 Telephone [facility] [address] [place] [address] [place] [phone] Ashley Smith RN 09/06/2024 Telephone [facility] [address] [place] [address] [place] [phone] Ashley Smith RN 08/31/2024 Telephone [facility] [address] [facility] [address] [place] [phone] Ashley Smith RN 08/23/2024 Results Follow-Up [facility] [address] [place] [address] [place] [phone] Niesha Olivarez MD IgE 08/18/2024 5:05 PM CDT - 08/18/2024 11:59 PM CDT Hospital Encounter [address] [address] Discharge Disposition: Discharge to home or self care 08/18/2024 3:00 PM CDT Lab [facility] at the [address] [phone] Adverse food reaction, initial encounter; Allergic rhinitis, unspecified seasonality, unspecified trigger 08/18/2024 2:00 PM CDT Office Visit [facility] [address] [place] [address] Sher, Niesha Alcala MD Adverse food reaction, initial encounter (Primary Dx); Allergic rhinitis, unspecified seasonality, unspecified trigger 07/27/2024 1:46 PM CDT - 07/27/2024 11:59 PM CDT Hospital Encounter [facility] [address] [place] [address] Diarrhea, unspecified type Discharge Disposition: Discharge to home or self care 07/06/2024 11:08 PM CDT - 07/06/2024 11:50 PM CDT Emergency [facility] [address] [place] [address] Dysphagia, unspecified type (Primary Dx) Discharge Disposition: [...] at this time. [facility] 07/16/2021 08/18/2024 Assessment & [...] rhinitis, unspecified seasonality, unspecified trigger ALLERGEN SYCAMORE SOUTH AFRICAN (TREE) IGE Routine 08/18/2024 3:01 PM CDT [...] rhinitis, unspecified seasonality, unspecified trigger ALLERGEN PLANTAIN SLOVENIAN (WEED) IGE Routine 08/18/2024 3:01 PM CDT [...] rhinitis, unspecified seasonality, unspecified trigger ALLERGEN COCKROACH SOUTH AFRICAN (INSECT) IGE Routine 08/18/2024 3:01 PM CDT [...] BLOOD ORDERABLES Final Result Performing Organization Address [facility] Co de Phone Number [facility] [place] [address] * Allergen Rat mix (animal) IgE (08/18/2024 3:01 PM CDT) [facility] Rat mix IgE <0.10 0.00 - 0.34 kUnits/L Blood 08/18/2024 3:01 PM CDT 08/18/2024 6:01 PM CDT Result [facility] Niesha Olivarez MD LAB BLOOD ORDERABLES Final Result Performing Organization Address [facility] Co de Phone Number [facility] [place] [address] * Allergen Mouse mix (animal) IgE (08/18/2024 3:01 PM CDT) [facility] Mouse mix IgE <0.10 0.00 - 0.34 kUnits/L Blood 08/18/2024 3:01 PM CDT 08/18/2024 6:01 PM CDT Niesha Olivarez MD LAB BLOOD ORDERABLES Final Result Performing Organization Address [facility] Co de Phone Number [facility] [place] [address] * BLOOD MISC TO [place] (08/18/2024 3:01 PM CDT) Test name, chem FZCCE Zucchini IgE Fuentes ref Lab Misc See Footnote BEV [facility] Comment: Test Result Flag Unit RefValue Darrelucchini IgE <0.35 kU/L <0.35 Class 0 CLASS INTERPRETATION: <0.35 kU/L=0, Below Detection; 0.35-0.69 kU/L= 1, Low Positive; 0.70-3.49 kU/L= 2, Moderate Positive; 3.50-17.49 kU/L= 3, Positive; 17.50-49.99 kU/L= 4, Strong Positive; >49.99 kU/L= 5, Very Strong Positive *This test was developed and its performance characteristics determined by [employer]. It has not been cleared or approved by the U.S. Food and Drug Administration. FLAG Interpretation: A = Abnormal, H = High, L = Low Test Performed by: [employer] [id number] [place] [address] Blood 08/18/2024 3:01 PM CDT 08/18/2024 7:30 PM CDT Niesha Olivarez MD LAB BLOOD ORDERABLES Final Result Performing Organization Address [facility] Co de Phone Number [facility] [place] [address] [place] ref [facility] * Allergen Peanut component 9 (food) IgE (08/18/2024 3:01 PM CDT) Peanut comp 9 IgE <0.10 0.00 - 0.34 kUnits/L Blood 08/18/2024 3:01 PM CDT 08/18/2024 6:01 PM CDT Niesha Olivarez MD LAB BLOOD ORDERABLES Final Result Performing Organization Address [facility] Co de Phone Number BEV [facility] Department [place] [address] * Allergen Peanut component 8 (food) IgE (08/18/2024 3:01 PM CDT) Peanut comp 8 IgE <0.10 0.00 - 0.34 kUnits/L Blood 08/18/2024 3:01 PM CDT 08/18/2024 6:01 PM CDT Niesha Olivarez MD LAB BLOOD [place] [address] * Allergen Peanut component 3 (food) IgE (08/18/2024 3:01 PM CDT) Peanut comp 3 IgE <0.10 0.00 - 0.34 kUnits/L Blood 08/18/2024 3:01 PM CDT 08/18/2024 6:01 PM CDT Niesha Olivarez MD LAB BLOOD ORDERABLES Final Result Performing Organization Address [facility]/[place] [address] * Allergen Peanut component 2 (food) IgE (08/18/2024 3:01 PM CDT) Peanut comp 2 IgE <0.10 0.00 - 0.34 kUnits/L Blood 08/18/2024 3:01 PM CDT 08/18/2024 6:01 PM CDT Niesha Olivarez MD LAB BLOOD ORDERABLES Final Result Performing Organization Address [facility]/ZIP Co de Phone Number [facility] [place] [address] * Allergen Peanut component 1 (food) IgE (08/18/2024 3:01 PM CDT) Peanut comp 1 IgE <0.10 0.00 - 0.34 kUnits/L Blood 08/18/2024 3:01 PM CDT 08/18/2024 6:01 PM CDT Niesha Olivarez MD LAB BLOOD ORDERABLES Final Result [facility] [place] [address] * Allergen Penicillium chrysogenum (mold) IgE (08/18/2024 3:01 PM CDT) Penicillium chrysogenum IgE <0.10 0.00 - 0.34 kUnits/L Blood 08/18/2024 3:01 PM CDT 08/18/2024 6:01 PM CDT Niesha Olivarez MD LAB BLOOD ORDERABLES Final Result Performing Organization Address [facility]/ZIP Co de Phone Number [facility] Department [place] [address] * Allergen Butler (tree) IgE (08/18/2024 3:01 PM CDT) Butler IgE <0.10 0.00 - 0.34 kUnits/L Blood 08/18/2024 3:01 PM CDT 08/18/2024 6:01 PM CDT Niesha Olivarez MD LAB BLOOD ORDERABLES Final Result Performing Organization Address [facility]/ZIP Co de Phone Number [facility] [place] [address] * Allergen Mountain juniper (tree) IgE (08/18/2024 3:01 PM CDT) Mountain juniper IgE <0.10 0.00 - 0.34 kUnits/L Blood 08/18/2024 3:01 PM CDT 08/18/2024 6:01 PM CDT Niesha Olivarez MD LAB BLOOD ORDERABLES Final Result Performing Organization Address [facility] Co de Phone Number [facility] [place] [address] * Allergen Bermuda grass (grass) IgE (08/18/2024 3:01 PM CDT) Bermuda grass IgE <0.10 0.00 - 0.34 kUnits/L Blood 08/18/2024 3:01 PM CDT 08/18/2024 6:01 PM CDT Niesha Olivarez MD LAB BLOOD ORDERABLES Final Result Performing Organization Address [facility] Co de Phone Number [facility] [place] [address] * Allergen Plantain marshallese (weed) IgE (08/18/2024 3:01 PM CDT) Plantain marshallese IgE <0.10 0.00 - 0.34 kUnits/L Blood 08/18/2024 3:01 PM CDT 08/18/2024 6:01 PM CDT Niesha Olivarez MD LAB BLOOD ORDERABLES Final Result Performing Organization Address [facility] [place] [address] * Allergen Potato (food) IgE (08/18/2024 3:01 PM CDT) Potato IgE <0.10 0.00 - 0.34 kUnits/L Blood 08/18/2024 3:01 PM CDT 08/18/2024 6:01 PM CDT Niesha Olivarez MD LAB BLOOD ORDERABLES Final Result Performing Organization Address [facility] Co de Phone Number [facility] [place] [address] * Allergen Chardon (food) IgE (08/18/2024 3:01 PM CDT) Chardon IgE <0.10 0.00 - 0.34 kUnits/L Blood 08/18/2024 3:01 PM CDT 08/18/2024 6:01 PM CDT Niesha Olivarez MD LAB BLOOD ORDERABLES Final Result Performing Organization Address [facility] Co de Phone Number [facility] Department [place] [address] * Allergen Tomato (food) IgE (08/18/2024 3:01 PM CDT) Tomato IgE <0.10 0.00 - 0.34 kUnits/L Blood 08/18/2024 3:01 PM CDT 08/18/2024 6:01 PM CDT Niesha Olivarez MD LAB BLOOD ORDERABLES Final Result Performing Organization Address [facility] Co de Phone Number [facility] [place] [address] * Allergen Quinault (food) IgE (08/18/2024 3:01 PM CDT) Quinault IgE <0.10 0.00 - 0.34 kUnits/L Blood 08/18/2024 3:01 PM CDT 08/18/2024 6:01 PM CDT Niesha Olivarez MD LAB BLOOD ORDERABLES Final Result Performing Organization Address [facility] Co de Phone Number [facility] [place] [address] * Allergen Elm (tree) IgE (08/18/2024 3:01 PM CDT) Elm IgE <0.10 0.00 - 0.34 kUnits/L Blood 08/18/2024 3:01 PM CDT 08/18/2024 6:01 PM CDT Niesha Olivarez MD LAB BLOOD ORDERABLES Final Result Performing Organization Address [facility] Co de Phone Number [facility] [place] [address] * Allergen Cladosporium herbarum (mold) IgE (08/18/2024 3:01 PM CDT) Cladosporium herbarum IgE <0.10 0.00 - 0.34 kUnits/L Blood 08/18/2024 3:01 PM CDT 08/18/2024 6:01 PM CDT Niesha Olivarez MD LAB BLOOD ORDERABLES Final Result Performing Organization Address [facility] Co de Phone Number BEV [facility] Department [place] [address] * Allergen Birch common silver (tree) IgE (08/18/2024 3:01 PM CDT) Birch common silver IgE <0.10 0.00 - 0.34 kUnits/L Blood 08/18/2024 3:01 PM CDT 08/18/2024 6:01 PM CDT Niesha Olivarez MD LAB BLOOD ORDERABLES Final Result Performing Organization Address [facility] Co de Phone Number [facility] [place] [address] * Allergen Alternaria tenuis (mold) IgE (08/18/2024 3:01 PM CDT) Alternaria tenius IgE <0.10 0.00 - 0.34 kUnits/L Blood 08/18/2024 3:01 PM CDT 08/18/2024 6:01 PM CDT Niesha Olivarez MD LAB BLOOD ORDERABLES Final Result Performing Organization Address [facility] Co de Phone Number [facility] [place] [address] * Allergen Aspergillus fumigatus (mold) IgE (08/18/2024 3:01 PM CDT) Aspergillus fumigatus IgE <0.10 0.00 - 0.34 kUnits/L Blood 08/18/2024 3:01 PM CDT 08/18/2024 6:01 PM CDT Niesha Olivarez MD LAB BLOOD ORDERABLES Final Result Performing Organization Address [facility] Co de Phone Number [facility] Department [place] [address] * Allergen Dermatophagoides pteronyssinus (insect) IgE (08/18/2024 3:01 PM CDT) Dermatophyton pteronyssinus IgE <0.10 0.00 - 0.34 kUnits/L Blood 08/18/2024 3:01 PM CDT 08/18/2024 6:01 PM CDT Niesha Olivarez MD LAB BLOOD ORDERABLES Final Result Performing Organization Address [facility] Co de Phone Number [facility] [place] [address] * Allergen Dermatophagoides farniae (insect) IgE (08/18/2024 3:01 PM CDT) Dermatophyton farinae IgE <0.10 0.00 - 0.34 kUnits/L Blood 08/18/2024 3:01 PM CDT 08/18/2024 6:01 PM CDT Niesha Olivarez MD LAB BLOOD [place] [address] * Allergen Peanut (food) IgE (08/18/2024 3:01 PM CDT) Peanut IgE <0.10 0.00 - 0.34 kUnits/L Blood 08/18/2024 3:01 PM CDT 08/18/2024 6:01 PM CDT Result [facility] Niesha Olivarez MD LAB BLOOD ORDERABLES Final Result Performing Organization Address [facility]/ZIP Co de Phone Number [facility] [place] [address] * Allergen Epithelia/dander dog (animal) IgE (08/18/2024 3:01 PM CDT) Dog dander IgE <0.10 0.00 - 0.34 kUnits/L Blood 08/18/2024 3:01 PM CDT 08/18/2024 6:01 PM CDT Niesha Olivarez MD LAB BLOOD ORDERABLES Final Result Performing Organization Address [facility]ZIP Co de Phone Number [facility] [place] [address] * Allergen Pineapple (food) IgE (08/18/2024 3:01 PM CDT) Pineapple IgE <0.10 0.00 - 0.34 kUnits/L Blood 08/18/2024 3:01 PM CDT 08/18/2024 6:01 PM CDT Niesha Olivarez MD LAB BLOOD ORDERABLES Final Result Performing Organization Address [facility]ZIP Co de Phone Number [facility] Department [place] [address] * Allergen Cockroach scottish (insect) IgE (08/18/2024 3:01 PM CDT) Cockroach IgE <0.10 0.00 - 0.34 kUnits/L Blood 08/18/2024 3:01 PM CDT 08/18/2024 6:01 PM CDT Niesha Olivarez MD LAB BLOOD ORDERABLES Final Result Performing Organization Address [facility] Co de Phone Number [facility] [place] [address] * Allergen Epithelia/dander cat (animal) IgE (08/18/2024 3:01 PM CDT) Cat dander IgE <0.10 0.00 - 0.34 kUnits/L Blood 08/18/2024 3:01 PM CDT 08/18/2024 6:01 PM CDT Niesha Olivarez MD LAB BLOOD ORDERABLES Final Result Performing Organization Address [facility]ZIP Co de Phone Number [facility] Department [place] [address] * Allergen Ragweed short/common (weed) IgE (08/18/2024 3:01 PM CDT) Ragweed common IgE <0.10 0.00 - 0.34 kUnits/L Blood 08/18/2024 3:01 PM CDT 08/18/2024 6:01 PM CDT Niesha Olivarez MD LAB BLOOD ORDERABLES Final Result Performing Organization Address [facility] Co de Phone Number [facility] [place] [address] * Allergen Pigweed, rough (weed) IgE (08/18/2024 3:01 PM CDT) Pigweed rough IgE <0.10 0.00 - 0.34 kUnits/L Blood 08/18/2024 3:01 PM CDT 08/18/2024 6:01 PM CDT Niesha Olivarez MD LAB BLOOD ORDERABLES Final Result Performing Organization Address [facility] Co de Phone Number [facility] [place] [address] * Allergen Nettle (weed) IgE (08/18/2024 3:01 PM CDT) Nettle IgE <0.10 0.00 - 0.34 kUnits/L Blood 08/18/2024 3:01 PM CDT 08/18/2024 6:01 PM CDT Niesha Olivarez MD LAB BLOOD ORDERABLES Final Result Performing Organization Address [facility] Co de Phone Number [facility] [place] [address] * Allergen Castro's quarter (weed) IgE (08/18/2024 3:01 PM CDT) Castro's quarters IgE <0.10 0.00 - 0.34 kUnits/L Blood 08/18/2024 3:01 PM CDT 08/18/2024 6:01 PM CDT Result [facility] Niesha Olivarez MD LAB BLOOD ORDERABLES Final Result Performing Organization Address [facility] de Phone Number [facility] [place] [address] * Allergen Rigoberto grass (grass) IgE (08/18/2024 3:01 PM CDT) Rigoberto grass IgE <0.10 0.00 - 0.34 kUnits/L Blood 08/18/2024 3:01 PM CDT 08/18/2024 6:01 PM CDT Result [facility] Niesha Olivarez MD LAB BLOOD ORDERABLES Final Result Performing Organization Address [facility] Co de Phone Number [facility] [place] [address] * Allergen Parker grass (grass) IgE (08/18/2024 3:01 PM CDT) Parker grass IgE <0.10 0.00 - 0.34 kUnits/L Blood 08/18/2024 3:01 PM CDT 08/18/2024 6:01 PM CDT Result [facility] Niesha Olivarez MD LAB BLOOD ORDERABLES Final Result Performing Organization Address [facility] Co de Phone Number [facility] [place] [address] * Allergen [place] (tree) IgE (08/18/2024 3:01 PM CDT) [place]k (tree) IgE <0.10 0.00 - 0.34 kUnits/L Blood 08/18/2024 3:01 PM CDT 08/18/2024 6:01 PM CDT Niesha Olivarez MD LAB BLOOD ORDERABLES Final Result Performing Organization Address [facility] Co de Phone Number [facility] [place] [address] * Allergen Jonesboro scottish (tree) IgE (08/18/2024 3:01 PM CDT) [place] IgE <0.10 0.00 - 0.34 kUnits/L Blood 08/18/2024 3:01 PM CDT 08/18/2024 6:01 PM CDT Niesha Olivarez MD LAB BLOOD ORDERABLES Final Result Performing Organization Address [facility] de Phone Number [facility] Department [place] [address] * Allergen Maple/Box elder (tree) IgE (08/18/2024 3:01 PM CDT) Maple/box elder IgE <0.10 0.00 - 0.34 kUnits/L Blood 08/18/2024 3:01 PM CDT 08/18/2024 6:01 PM CDT Niesha Olivarez MD LAB BLOOD ORDERABLES Final Result Performing Organization Address [facility] Co de Phone Number [facility] [place] [address] * Allergen Tea (food) IgE (08/18/2024 3:01 PM CDT) Tea IgE <0.10 0.00 - 0.34 kUnits/L Blood 08/18/2024 3:01 PM CDT 08/18/2024 6:01 PM CDT Niesha Olivarez MD LAB BLOOD ORDERABLES Final Result Performing Organization Address [facility] Co de Phone Number [facility] [place] [address] * Allergen Seville red (tree) IgE (08/18/2024 3:01 PM CDT) Seville IgE <0.10 0.00 - 0.34 kUnits/L Blood 08/18/2024 3:01 PM CDT 08/18/2024 6:01 PM CDT Niesha Olivarez MD LAB BLOOD ORDERABLES Final Result Performing Organization Address [facility] de Phone Number [facility] [place] [address] * IgE (08/18/2024 3:01 PM CDT) IgE 38 <=100 IUnits/mL Blood 08/18/2024 3:01 PM CDT 08/18/2024 6:01 PM CDT Result [facility] Niesha Olivarez MD LAB BLOOD ORDERABLES Final Result Performing Organization Address [facility] Phone Number [facility] [place] [address] * CT Abdomen Pelvis W Contrast (07/27/2024 [...] by Orlin Anderson M.D. T: Report ID: [id number] Reading Location: [place] [address] Procedure Note Orlin Anderson Jr., MD - [...] by Orlin Anderson M.D. T: Report ID: [id number] Reading Location: [id number] Carlos Londono MD IMG CT PROCEDURES Final [...] Clint Garcia M.D. KT T: Report ID: [id number] Reading Location: [place] [address] Procedure Note Clint Garcia MD - 07/06/2024 [...] 10:56 PM - Electronically signed by Clint Gacria M.D. KT T: Report ID: [id number] Reading Location: [id number] Paul MARKS IMG CT PROCEDURES Final Resu [...] Clint Garcia M.D. KT T: Report ID: [id number] Reading Location: [id number] Procedure Note Clint Garcia MD - 07/06/2024 [...] Clint Garcia M.D. KT T: Report ID: [id number] Reading Location: [id number] Paul MARKS IMG CT PROCEDURES Final Resu [...] CDT 07/06/2024 9:03 PM CDT Angie Espinal MED PEDS LAB BLOOD ORDERABLES Fin al Result [place] [address] [facility] Department [place] [address] * Differential, auto (07/06/2024 9:00 PM CDT) Pathologist [facility] Neutrophil abs 4.56 1.50 - 6.50 K/cumm Imm gran abs 0.02 0.00 - 0.10 K/cumm [facility] Lymphocyte abs 2.88 0.80 - 3.30 K/cumm [facility] Monocyte abs 0.65 0.20 - 0.80 K/cumm [facility] Eosinophil abs 0.11 0.00 - 0.50 K/cumm [facility] Basophil abs 0.04 0.00 - 0.10 K/cumm [facility] Neutrophil pct 55.2 % [facility] Comment: Interpretive Data Percent cell count reference ranges are not reported, since discordance with absolute values may lead to misinterpretation of CBC data. Current Interpretive Data was last revised on 2017. Imm gran pct 0.2 % [facility] Comment: Interpretive Data Percent cell count reference ranges are not reported, since discordance with absolute values may lead to misinterpretation of CBC data. Current Interpretive Data was last revised on 2017. Lymphocyte pct 34.9 % [facility] Comment: Interpretive Data Percent cell count reference ranges are not reported, since discordance with absolute values may lead to misinterpretation of CBC data. Current Interpretive Data was last revised on 2017. Monocyte pct 7.9 % [facility] Comment: Interpretive Data Percent cell count reference ranges are not reported, since discordance with absolute values may lead to misinterpretation of CBC data. Current Interpretive Data was last revised on 2017. Eosinophil pct 1.3 % [facility] Comment: Interpretive Data Percent cell count reference ranges are not reported, since discordance with absolute values may lead to misinterpretation of CBC data. Current Interpretive Data was last revised on 2017. Basophil pct 0.5 % [facility] Comment: Interpretive Data Percent cell count reference ranges are not reported, since discordance with absolute values may lead to misinterpretation of CBC data. Current Interpretive Data was last revised on 2017. Blood 07/06/2024 9:00 PM CDT 07/06/2024 9:03 PM CDT Angie Espinal MED PEDS LAB BLOOD ORDERABLES Fin al Result [facility] [address] [facility] Department [place] [address] * CBC with auto differential (07/06/2024 9:00 PM CDT) WBC 8.26 3.80 - 9.90 K/cumm Hgb 13.6 11.9 - 15.5 g/dL [facility] Hct 40.4 35.6 - 45.5 % [facility] Plt 266 150 - 400 K/cumm [facility] MPV 9.6 9.1 - 12.3 fL [facility] RBC 4.93 3.90 - 5.20 M/cumm [facility] MCV 81.9 81.3 - 96.4 fL [facility] MCH 27.6 27.1 - 33.3 pg [facility] MCHC 33.7 32.3 - 35.7 g/dL [facility] RDW CV 12.6 11.1 - 14.9 % [facility] RDW SD 37.6 35.7 - 48.1 fL [facility] NRBC abs 0.00 0.00 - 0.01 K/cumm [facility] Blood 07/06/2024 9:00 PM CDT 07/06/2024 9:03 PM CDT us Angie Espinal NP LAB BLOOD ORDERABLES Fin al Result [facility] [address] [facility] Department [place] [address] * Comprehensive metabolic panel (07/06/2024 9:00 PM CDT) Sodium 139 135 - 145 mmol/L Potassium, pl 4.0 3.3 - 4.9 mmol/L [facility] Comment:Hemolyzed; Potassium value may be falsely elevated by as much as 1.0 mmol/L. Suggest redraw and reanalysis. Chloride 104 97 - 110 mmol/L [facility] CO2 23 22 - 32 mmol/L [facility] Anion gap 12 2 - 15 mmol/L [facility] BUN 13 6 - 25 mg/dL [facility] Creatinine 0.75 0.60 - 1.10 mg/dL [facility] Glucose 93 70 - 199 mg/dL [facility] Comment: Interpretive Data Fasting glucose >/= [...] 2022. Calcium 9.3 8.5 - 10.3 mg/dL [facility] Bilirubin, total 0.2 0.1 - 1.2 mg/dL [facility] Protein, pl 7.3 6.5 - 8.5 g/dL [facility] Albumin 4.2 3.5 - 5.0 g/dL [facility] Alk phos 85 40 - 130 Units/L [facility] ALT 15 7 - 45 Units/L [facility] AST 20 10 - 45 Units/L [facility] Blood 07/06/2024 9:00 PM CDT 07/06/2024 9:03 PM CDT Angie Espinal NP LAB BLOOD ORDERABLES Fin al Result [facility] [address] [facility] Department [place] [address] * POCT hCG, urine (07/06/2024 8:49 PM CDT) Pathologist [facility] HCG, ur, POC Negative Negative Lot Number [id number] QC Backgroud Clear Acceptable QC Control Line Acceptable Urine 07/06/2024 8:49 PM CDT Angie Espinal NP POINT OF CARE TEST ORDER MICHELLE Final Result * N. gonorrhoeae/C. trachomatis Amplification Urine (07/16/2021 2:14 PM CDT) Pathologist [facility] C. trachomatis Not detected Not detected BEV N. gonorrhoeae Not detected Not detected BEV Comment: Testing performed by the [facility]. This assay detects [...] LAB MICROBIOLOGY - GENERAL ORDERABLES Final Result [facility] [address] Department [place] [address] from Last 3 Months or Most Recently Relevant to Health Maintenance [place] [email or web address] [place] Care Teams Salesperson Recreational Vehicles Relationship Specialty Start Date End Date Denis Nava MD [address] [place] [address] PCP - General Family Medicine 07/16/21 Gordo Rivera MD [address] [address] Endocrinology Diabetes & Metabolism 07/16/21
--- OUTSIDE RECORDS SUMMARY | 2024-09-22 10:49 | XMS_ITS | Clinical Summary ---
Author Organization [facility] Address [address] [place] [address] Care Team Providers Care Repairer Recreational Vehicle Name Role Phone Non-Staff, Provider Primary Care Provider Jacki gomez Allergies No known active allergies Medications lansoprazole (PREVACID SOLUTAB) 30 MG disintegrating tablet Take 1 tablet (30 mg total) by mouth daily. Active cetirizine (ZYRTEC) 10 MG tablet Take 1 tablet (10 mg total) by mouth daily. Active Norethindrone, Contraceptive, 0.35 MG tablet Take 1 tablet by mouth daily. Active Encounters Date Type Department Care Team Description 09/21/2024 codebender [facility] Patient Accounts [address] [place] [address] [facility] Provider Auto Payment declined 08/12/2024 3:04 PM CDT - 08/12/2024 4:05 PM T Emergency [facility] [place] [address] Gustavo Strong MD Mouth/Lip Problem; Allergic Reaction Discharge Disposition: Left Against Medical Advice 08/12/2024 Travel from Last 3 Months Social History Tobacco Use Types Packs/Day Years Used Date Smoking Tobacco: Never Smokeless Tobacco: Never Tobacco Cessation:Counseling Given: Not Answered Alcohol Use Standard Drinks/Week Comments Never 0 (1 standard drink = 0.6 oz pur e alcohol) Comments No Sex and Gender Information Value Date Recorded Sex Assigned at Female 04/07/2024 10:01 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 Sex Female 5:48 PM CDT Gender Identity Not on file Sexual Orientation Not on file Last Filed Vital Signs Vital Sign Reading Time Taken Comments Blood Pressure 124/77 08/12/2024 3:52 PM CDT Pulse 74 08/12/2024 3:52 PM CDT Temperature 36.4 C (97.6 F) 08/12/2024 3:52 PM CDT Respiratory Rate 18 08/12/2024 3:52 PM CDT Oxygen Saturation 99% 08/12/2024 3:52 PM CDT Inhaled Oxygen Concentration - - Weight 117.9 kg (260 lb) 08/12/2024 3:52 PM CDT Height 172.7 cm (5' 8) 08/12/2024 3:52 PM CDT Body Mass Index 39.53 08/12/2024 3:52 PM CDT Plan of Treatment Health Maintenance Due Date Last Done Comments Cervical Cancer Screening Pap Smear (Age 21 to 29) Every 3 Years 2000 Cervical Cancer Screening 2000 Hepatitis B Vaccines (4 of 4 - 4-dose series) 03/11/2001 01/09/2001, 2000, 2000 Annual Physical 09/10/2003 HPV Vaccines (1 - 3-dose series) 09/10/2015 Chlamydia Screening Females ages 16-24 2016 Hepatitis C 2018 COVID-19 Vaccine ( season) 2023 07/01/2020 DTaP, Tdap and Td Vaccines (8 - Td or Tdap) 10/11/2032 10/11/2022, 10/01/2011, 11/22/2005, Additional history exists Pneumococcal Vaccine: Pediatrics (0 to 5 Years) and At-Risk Patients (6 to 49 Years) Aged Out 08/13/2002, 03/12/2001, 02/04/2001, Additional history exists No longer eligible based on patient's age to complete this topic Meningococcal Vaccine Completed 10/22/2017, 012 Meningococcal B Vaccine Aged Out No l onger eligible based on patient's age to complete this topic RSV Immunizations Under 20 Months Aged Out No longer eligible based on patient's age to complete this topic Insurance [facility] Care Teams Repairer Recreational Vehicle Relationship Specialty Start Date End Date Non-Staff, Provider PCP - General UNKNOWN PHYSICIAN SPECIALTY 12/16/22
--- OUTSIDE RECORDS SUMMARY | 2024-10-05 10:02 | XMS_ITS | Clinical Summary ---
Author Organization [facility] Address [address] [place] [address] Care Team Providers Care Cloth Hand Name Role Phone Non-Staff, Provider Primary Care Provider Jacki gomez Allergies No known active allergies Medications lansoprazole (PREVACID SOLUTAB) 30 MG disintegrating tablet Take 1 tablet (30 mg total) by mouth daily. Active cetirizine (ZYRTEC) 10 MG tablet Take 1 tablet (10 mg total) by mouth daily. Active Norethindrone, Contraceptive, 0.35 MG tablet Take 1 tablet by mouth daily. 5 Active LORazepam (ATIVAN) 0.5 MG tabletIndications:A nxiety Take 1 tablet (0.5 mg total) by mouth every 6 (six) hours as needed for Anxiety. 12 tablet 09/26/19 25 Encounters Date Type Department Care Team Description 09/22/2024 5:35 PM CDT - 09/22/2024 5:36 PM CDT Emergency [facility] [place] [address] Oneyda Rudd PA Anxiety Discharge Disposition: Home or Self Care (Routine Discharge) 09/22/2024 Travel 09/21/2024 Darek Message [facility] Patient Accounts [address] [place] [address] [facility] Provider Auto Payment declined 08/12/2024 3:04 PM CDT - 08/12/2024 4:05 PM CDT Emergency [facility] [address] [address] Gustavo Strong MD Mouth/Lip Problem; Allergic Reaction [...] Sex Assigned at Female 04/07/2024 10:01 PM EXTRACTIONS TECHNICIAN Legal Sex Female 5:48 PM CDT Gender Identity Not on file Sexual Orientation Not on file Last Filed Vital Signs Vital Sign Reading Time Taken Comments Blood Pressure 156/81 09/22/2024 5:15 PM CDT Pulse 105 09/22/2024 5:15 PM CDT Temperature 36.9 C (98.5 F) 09/22/2024 5:15 PM CDT Respiratory Rate 16 09/22/2024 5:15 PM CDT Oxygen Saturation 98% 09/22/2024 5:15 PM CDT Inhaled Oxygen Concentration - - Weight 115.7 kg (255 lb) 09/22/2024 5:15 PM CDT Height 172.7 cm (5' 8) 09/22/2024 5:15 PM CDT Body Mass Index 38.77 09/22/2024 5:15 PM CDT Plan of Treatment Health Maintenance [...] 2016 Hepatitis C 2018 COVID-19 Vaccine ( - season) 2023 07/01/2020 DTaP, Tdap and [...] patient's age to complete this topic Insurance [facility] Care Teams Cloth Hand Relationship Specialty Start Date End Date Non-Staff, Provider PCP - General UNKNOWN PHYSICIAN SPECIALTY 12/16/22
--- OUTSIDE RECORDS SUMMARY | 2024-10-05 10:02 | XMS_ITS | Encounter Summary ---
Author Organization [facility] Address [address] [place] [address] Care Team Providers Care Automotive Internet Sales Consultant Name Role Phone Non-Staff, Provider Primary Care Provider Jacki gomez Encounter Details Date Type Department Care Team (Late st Contact Info) Description 09/21/2024 [facility] Patient Accounts [address] [place] [address] [facility] Auto Payment declined Social History Tobacco Use Types Packs/Day Years Used Date Smoking Tobacco: Never Smokeless Tobacco: Never Alcohol Use Standard Drinks/Week Comments Never 0 (1 standard drink = 0.6 oz pur e alcohol) Comments No Sex and Gender Information Value Date Recorded Sex Assigned at Female 04/07/2024 10:01 PM DIRECTOR OF EARLY CHILDHOOD Legal Sex Female 5:48 PM CDT Gender Identity Not on file Sexual Orientation Not on file documented as of this encounter Functional Status * Calculated C-SSRS Risk Score (Lifetime/Recent) Answer Date of Assessment Author Status No Risk Indicated 09/22/2024 5:25 PM CDT Radha Hayden RN Active * [place] Suicide Severity Rating Scale (Screener/Recent Self-Report) Question Answer Date of Assessment Author Status 1. Wish to be (Past 1 Month) No 09/22/2024 5:25 PM CDT Radha Hayden RN Active 2. Non-Specific Active Suici kale Thoughts (Past 1 Month) No 09/22/2024 5:25 PM CDT Radha Hayden RN Active 6. Suicidal Behavior (Lifetime) No 09/22/2024 5:25 PM CDT Radha Hayden, RN Active documented as of this encounter Plan of Treatment Not on file documented as of this encounter Visit Diagnoses Not on filedocumented in this encounter Care Teams Automotive Internet Sales Consultant Relationship Specialty Start Date End Date Non-Staff, Provider PCP - General UNKNOWN PHYSICIAN SPECIALTY 12/16/22 documented as of this encounter
--- OUTSIDE RECORDS SUMMARY | 2024-10-05 10:02 | XMS_ITS | Clinical Summary ---
Author Organization [facility] Address [address] [place] [address] Care Team Providers Care Apartment Community Manager Name Role Phone Unknown, Provider Primary Care Provider Unavaila ble Source Comments [facility],non-owned Affiliates and Associated Physician Practices is amultiple site organization consisting of ambulatory clinics and hospital sitesin [place], [place], [place] and [place]. This disclosure is being madepursuant to the Care Everywhere program and may not contain all information available regarding this patient. Last updated 17.[facility] Allergies No known active allergies Medications * [...] 2023 07/01/2020 DEPRESSION SCREENING 03/24/2024 INFLUENZA VACCINE (#1) 2024 ZOSTER VACCINE (1 of 2) 2050 [...] patient's age to complete this topic Insurance [facility] Care Teams Apartment Community Manager Relationship Specialty Start Date End Date Unknown, Provider PCP - General 01/25/21
--- OUTSIDE RECORDS SUMMARY | 2024-10-05 10:02 | XMS_ITS | Referral Summary ---
Author Organization [address] Address [address] [place] [phone] Care Team Providers Care Medical Staff Specialist Name Role Phone Denis Nava MD Primary Care Provider [phone] Gordo Rivera MD Unavailable [phone] Encounters Date Type Department Care Team Description 09/28/2024 8:30 AM CDT Procedure visit [facility] All[facility] and Immunology [address] [place] [address] [place] [phone] Niesha Olivarez MD Adverse food reaction, subsequent encounter (Primary Dx); Throat tightness; Non-allergic rhinitis 09/10/2024 Telephone [facility] Allergy and Immunology [address] [facility] [address] [place] [phone] Ashley Smith RN 09/06/2024 Telephone [facility] All[facility] Immunology [address] [facility] [address] [place] [phone] Ashley Smith RN 08/31/2024 Telephone [facility] All[facility] Immunology [address] [facility] [address] [place] [phone] Ashley Smith RN 08/23/2024 Results Follow-Up [facility] All[facility] and Immunology [address] [facility] [address] [place] [address] Niesha Olivarez MD IgE 08/18/2024 5:05 PM CDT - 08/18/2024 11:59 PM CDT Hospital Encounter [address] [address] Discharge Disposition: Discharge to home or self care 08/18/2024 3:00 PM CDT Lab [facility] [address] [place] [phone] Adverse food reaction, initial encounter; Allergic rhinitis, unspecified seasonality, unspecified trigger 08/18/2024 2:00 PM CDT Office Visit [facility] All[facility] and Immunology [address] [facility] [address] [place] [phone] Dy, Niesha Alcala MD Adverse food reaction, initial encounter (Primary Dx); Allergic rhinitis, unspecified seasonality, unspecified trigger 07/27/2024 1:46 PM CDT - 07/27/2024 11:59 PM CDT Hospital Encounter [facility] [address] [place] [address] Diarrhea, unspecified type Discharge Disposition: Discharge to home or self care 07/06/2024 11:08 PM CDT - 07/06/2024 11:50 PM CDT Emergency [facility] [address] [place] [address] Dysphagia, unspecified type (Primary Dx) Discharge Disposition: Discharge to home or self care from Last 3 Months Allergies No known active allergies Medications lansoprazole (PREVACID) 30 mg capsule Take by mouth daily 2 Active cetirizine (ZyrTEC) 10 mg tablet Take 1 tablet (10 mg total) by mouth daily Active polyethylene glycol (MIRALAX) 17 gram/dose bulk powder Take 17 g by mouth daily Active norethindrone (MICRONOR) 0.35 mg tablet Take 1 tablet (0.35 mg total) by mouth daily 5 09/29/19 25 Discontinu ed(Patient Reported) Active Problems Problem Noted Date Diagnosed Date GERD (gastroesophageal reflux disease) 5 PMDD (premenstrual dysphoric disorder) Vasovagal syncope 08/18/2024 [...] at this time. Encounter for medical examin [facility] to establish care 07/16/2021 08/18/2024 Assessment & [...] Packs/Day Years Used Date Smoking Tobacco: Never Passive Smoke Exposure: Past Smokeless Tobacco: Never AUDIT-C Answer Date Recorded [...] Sign Reading Time Taken Comments Blood Pressure 108/72 09/28/2024 8:31 AM CDT Pulse 79 09/28/2024 8:31 AM CDT Temperature 36.6 C (97.8 F) 09/28/2024 8:31 AM CDT Respiratory Rate 18 08/18/2024 1:44 PM CDT Oxygen Saturation 99% 09/28/2024 8:31 AM CDT Inhaled Oxygen Concentration - - Weight 111.5 kg (245 lb 12.8 oz) 09/28/2024 8:31 AM CDT Height 172.7 cm (5' 8) 09/28/2024 8:31 AM CDT Body Mass Index 37.37 09/28/2024 8:31 AM CDT Plan of Treatment Not on file Procedures Procedure Name Priority Date/Time Associated Diagnosis Comments ALLERGY SKIN TESTS ALLERGENS, EACH Routine 09/28/2024 8:25 AM CDT Adverse food reaction, subsequent encounter Non-allergic rhinitis BLOOD MISC TO PARK Routine 08/18/2024 3: 01 PM CDT IGE [...] rhinitis, unspecified seasonality, unspecified trigger ALLERGEN SYCAMORE ZIMBABWEAN (TREE) IGE Routine 08/18/2024 3:01 PM CDT [...] rhinitis, unspecified seasonality, unspecified trigger ALLERGEN PLANTAIN KINYARWANDA (WEED) IGE Routine 08/18/2024 3:01 PM CDT [...] rhinitis, unspecified seasonality, unspecified trigger ALLERGEN COCKROACH ZIMBABWEAN (INSECT) IGE Routine 08/18/2024 3:01 PM CDT [...] Recently Relevant to Health Maintenance Results * Allergy skin tests allergens, each (09/28/2024 8:25 AM CDT) Niesha Olivarez MD IN CLINIC/BEDSIDE ORDERABLE S Edited Result - Final * Allergen Peanut component 6 (food) IgE (08/18/2024 3:01 PM CDT) Peanut comp 6 IgE <0.10 0.00 - 0.34 kUnits/L Blood 08/18/2024 3:01 PM CDT 08/18/2024 6:01 PM CDT Niesha Olivarez MD LAB BLOOD ORDERABLES Final Result Performing Organization Address City/[facility]/ZIP Co de Phone Number [facility] Department [place] [address] * Allergen Rat mix (animal) IgE (08/18/2024 3:01 PM CDT) Rat mix IgE <0.10 0.00 - 0.34 kUnits/L Blood 08/18/2024 3:01 PM CDT 08/18/2024 6:01 PM CDT Niesha Olivarez MD LAB BLOOD ORDERABLES Final Result [facility] [place] [address] * Allergen Mouse mix (animal) IgE (08/18/2024 3:01 PM CDT) Mouse mix IgE <0.10 0.00 - 0.34 kUnits/L Blood 08/18/2024 3:01 PM CDT 08/18/2024 6:01 PM CDT Niesha Olivarez MD LAB BLOOD ORDERABLES Final Result [facility] Department [place] [address] * BLOOD MISC TO PARK (08/18/2024 3:01 PM CDT) Test name, chem FZCCE Zucchini IgE [place] ref Lab Misc See Footnote BEV ARIZA Comment: Test Result Flag Unit RefValue Zucchini IgE <0.35 kU/L <0.35 Class 0 CLASS INTERPRETATION: <0.35 kU/L=0, Below Detection; 0.35-0.69 kU/L= 1, Low Positive; 0.70-3.49 kU/L= 2, Moderate Positive; 3.50-17.49 kU/L= 3, Positive; 17.50-49.99 kU/L= 4, Strong Positive; >49.99 kU/L= 5, Very Strong Positive *This test was developed and its performance characteristics determined by [facility]. It has not been cleared or approved by the U.S. Food and Drug Administration. FLAG Interpretation: A = Abnormal, H = High, L = Low Test Performed by: [facility] [id number] [address] Blood 08/18/2024 3:01 PM CDT 08/18/2024 7:30 PM CDT Niesha Olivarez MD LAB BLOOD ORDERABLES Final Result Performing Organization Address City/[facility]/ZIP Co de Phone Number BEV [facility] [employer] [place] [address] [facility] ref Lab * Allergen Peanut component 9 (food) IgE (08/18/2024 3:01 PM CDT) Peanut comp 9 IgE <0.10 0.00 - 0.34 kUnits/L Blood 08/18/2024 3:01 PM CDT 08/18/2024 6:01 PM CDT Niesha Olivarez MD LAB BLOOD [place] [address] * Allergen Peanut component 8 (food) IgE (08/18/2024 3:01 PM CDT) Peanut comp 8 IgE <0.10 0.00 - 0.34 kUnits/L Blood 08/18/2024 3:01 PM CDT 08/18/2024 6:01 PM CDT Niesha Olivarez MD LAB BLOOD ORDERABLES Final Result [facility] [place] [address] * Allergen Peanut component 3 (food) IgE (08/18/2024 3:01 PM CDT) Peanut comp 3 IgE <0.10 0.00 - 0.34 kUnits/L Blood 08/18/2024 3:01 PM CDT 08/18/2024 6:01 PM CDT Niesha Olivarez MD LAB BLOOD ORDERABLES Final Result [facility] [employer] [place] [address] * Allergen Peanut component 2 (food) IgE (08/18/2024 3:01 PM CDT) Peanut comp 2 IgE <0.10 0.00 - 0.34 kUnits/L Blood 08/18/2024 3:01 PM CDT 08/18/2024 6:01 PM CDT Niesha Olivarez MD LAB BLOOD [place] [address] * Allergen Peanut component 1 (food) IgE (08/18/2024 3:01 PM CDT) Peanut comp 1 IgE <0.10 0.00 - 0.34 kUnits/L Blood 08/18/2024 3:01 PM CDT 08/18/2024 6:01 PM CDT Niesha Olivarez MD LAB BLOOD ORDERABLES Final Result Performing Organization Address City/[facility]/ZIP Co de Phone Number [facility] [employer] [place] [address] * Allergen Penicillium chrysogenum (mold) IgE (08/18/2024 3:01 PM CDT) Penicillium chrysogenum IgE <0.10 0.00 - 0.34 kUnits/L Blood 08/18/2024 3:01 PM CDT 08/18/2024 6:01 PM CDT Niesha Olivarez MD LAB BLOOD ORDERABLES Final Result Performing Organization Address City/[facility]/ZIP Co de Phone Number [facility] [employer] [place] [address] * Allergen Beaver (tree) IgE (08/18/2024 3:01 PM CDT) Beaver IgE <0.10 0.00 - 0.34 kUnits/L Blood 08/18/2024 3:01 PM CDT 08/18/2024 6:01 PM CDT Niesha Olivarez MD LAB BLOOD ORDERABLES Final Result Performing Organization Address City/[facility] Co de Phone Number [facility] [place] [address] * Allergen Mountain juniper (tree) IgE (08/18/2024 3:01 PM CDT) Oscar juniper IgE <0.10 0.00 - 0.34 kUnits/L Blood 08/18/2024 3:01 PM CDT 08/18/2024 6:01 PM CDT Niesha Olivarez MD LAB BLOOD ORDERABLES Final Result Performing Organization Address [facility] de Phone Number [facility] [place] [address] * Allergen Bermuda grass (grass) IgE (08/18/2024 3:01 PM CDT) Bermuda grass IgE <0.10 0.00 - 0.34 kUnits/L Blood 08/18/2024 3:01 PM CDT 08/18/2024 6:01 PM CDT Niesha Olivarez MD LAB BLOOD ORDERABLES Final Result Performing Organization Address City/[facility] [place] [address] * Allergen Plantain turkish (weed) IgE (08/18/2024 3:01 PM CDT) Plantain turkish IgE <0.10 0.00 - 0.34 kUnits/L Blood 08/18/2024 3:01 PM CDT 08/18/2024 6:01 PM CDT Result [facility] Niesha Olivarez MD LAB BLOOD ORDERABLES Final Result Performing Organization Address [facility] Co de Phone Number [facility] [place] [address] * Allergen Potato (food) IgE (08/18/2024 3:01 PM CDT) Potato IgE <0.10 0.00 - 0.34 kUnits/L Blood 08/18/2024 3:01 PM CDT 08/18/2024 6:01 PM CDT Result [facility] Niesha Olivarez MD LAB BLOOD ORDERABLES Final Result Performing Organization Address [facility] de Phone Number [facility] [place] [address] * Allergen Lawn (food) IgE (08/18/2024 3:01 PM CDT) Lawn IgE <0.10 0.00 - 0.34 kUnits/L Blood 08/18/2024 3:01 PM CDT 08/18/2024 6:01 PM CDT Result [facility] Niesha Olivarez MD LAB BLOOD ORDERABLES Final Result Performing Organization Address [facility] [place] [address] * Allergen Tomato (food) IgE (08/18/2024 3:01 PM CDT) Tomato IgE <0.10 0.00 - 0.34 kUnits/L Blood 08/18/2024 3:01 PM CDT 08/18/2024 6:01 PM CDT Result [facility] Niesha Olivarez MD LAB BLOOD ORDERABLES Final Result Performing Organization Address City/[facility]/ZIP Co de Phone Number [facility] [place] [address] * Allergen Headland (food) IgE (08/18/2024 3:01 PM CDT) [place]land IgE <0.10 0.00 - 0.34 kUnits/L Blood 08/18/2024 3:01 PM CDT 08/18/2024 6:01 PM CDT Result [facility] Niesha Olivaerz MD LAB BLOOD ORDERABLES Final Result Performing Organization Address City/[facility] Co de Phone Number [facility] [place] [address] * Allergen Elm (tree) IgE (08/18/2024 3:01 PM CDT) Elm IgE <0.10 0.00 - 0.34 kUnits/L Blood 08/18/2024 3:01 PM CDT 08/18/2024 6:01 PM CDT Result [facility] Niesha Olivarez MD LAB BLOOD ORDERABLES Final Result Performing Organization Address City/[facility]/ZIP Co de Phone Number [facility] [place] [address] * Allergen Cladosporium herbarum (mold) IgE (08/18/2024 3:01 PM CDT) Cladosporium herbarum IgE <0.10 0.00 - 0.34 kUnits/L Blood 08/18/2024 3:01 PM CDT 08/18/2024 6:01 PM CDT Niesha Olivarez MD LAB BLOOD ORDERABLES Final Result Performing Organization Address [facility] de Phone Number [facility] [place] [address] * Allergen Birch common silver (tree) IgE (08/18/2024 3:01 PM CDT) Birch common silver IgE <0.10 0.00 - 0.34 kUnits/L Blood 08/18/2024 3:01 PM CDT 08/18/2024 6:01 PM CDT Niesha Olivarez MD LAB BLOOD ORDERABLES Final Result Performing Organization Address [facility] de Phone Number [facility] [place] [address] * Allergen Alternaria tenuis (mold) IgE (08/18/2024 3:01 PM CDT) Alternaria tenius IgE <0.10 0.00 - 0.34 kUnits/L Blood 08/18/2024 3:01 PM CDT 08/18/2024 6:01 PM CDT Niesha Olivarez MD LAB BLOOD ORDERABLES Final Result Performing Organization Address [facility] de Phone Number [facility] [place] [address] * Allergen Aspergillus fumigatus (mold) IgE (08/18/2024 3:01 PM CDT) Aspergillus fumigatus IgE <0.10 0.00 - 0.34 kUnits/L Blood 08/18/2024 3:01 PM CDT 08/18/2024 6:01 PM CDT Niesha Olivarez MD LAB BLOOD ORDERABLES Final Result Performing Organization Address [facility] Co de Phone Number [facility] [place] [address] * Allergen Dermatophagoides pteronyssinus (insect) IgE (08/18/2024 3:01 PM CDT) Dermatophyton pteronyssinus IgE <0.10 0.00 - 0.34 kUnits/L Blood 08/18/2024 3:01 PM CDT 08/18/2024 6:01 PM CDT Niesha Olivarez MD LAB BLOOD ORDERABLES Final Result Performing Organization Address [facility] [place] [address] * Allergen Dermatophagoides farniae (insect) IgE (08/18/2024 3:01 PM CDT) Dermatophyton farinae IgE <0.10 0.00 - 0.34 kUnits/L Blood 08/18/2024 3:01 PM CDT 08/18/2024 6:01 PM CDT Result [facility] Niesha Olivarez MD LAB BLOOD ORDERABLES Final Result Performing Organization Address [facility]/ZIP Co de Phone Number [facility] [place] [address] * Allergen Peanut (food) IgE (08/18/2024 3:01 PM CDT) Peanut IgE <0.10 0.00 - 0.34 kUnits/L Blood 08/18/2024 3:01 PM CDT 08/18/2024 6:01 PM CDT Niesah Olivarez MD LAB BLOOD ORDERABLES Final Result Performing Organization Address City/[facility]/ZIP Co de Phone Number [facility] Department [place] [address] * Allergen Epithelia/dander dog (animal) IgE (08/18/2024 3:01 PM CDT) Dog dander IgE <0.10 0.00 - 0.34 kUnits/L Blood 08/18/2024 3:01 PM CDT 08/18/2024 6:01 PM CDT Niesha Olivarez MD LAB BLOOD ORDERABLES Final Result Performing Organization Address [facility] [place] [address] * Allergen Pineapple (food) IgE (08/18/2024 3:01 PM CDT) Pineapple IgE <0.10 0.00 - 0.34 kUnits/L Blood 08/18/2024 3:01 PM CDT 08/18/2024 6:01 PM CDT Result [facility] Niesha Olivarez MD LAB BLOOD ORDERABLES Final Result Performing Organization Address City/[facility] Co de Phone Number [facility] Department [place] [address] * Allergen Cockroach citizen [place] (insect) IgE (08/18/2024 3:01 PM CDT) Cockroach IgE <0.10 0.00 - 0.34 kUnits/L Blood 08/18/2024 3:01 PM CDT 08/18/2024 6:01 PM CDT Niesha Olivarez MD LAB BLOOD ORDERABLES Final Result Performing Organization Address City/[facility] Co de Phone Number [facility] Department [place] [address] * Allergen Epithelia/dander cat (animal) IgE (08/18/2024 3:01 PM CDT) Cat dander IgE <0.10 0.00 - 0.34 kUnits/L Blood 08/18/2024 3:01 PM CDT 08/18/2024 6:01 PM CDT Niesha Olivarez MD LAB BLOOD ORDERABLES Final Result Performing Organization Address City/[facility]/ZIP Co de Phone Number [facility] Department [place] [address] * Allergen Ragweed short/common (weed) IgE (08/18/2024 3:01 PM CDT) Ragweed common IgE <0.10 0.00 - 0.34 kUnits/L Blood 08/18/2024 3:01 PM CDT 08/18/2024 6:01 PM CDT Result [facility] Niesha Olivarez MD LAB BLOOD ORDERABLES Final Result Performing Organization Address City/[facility] Co de Phone Number [facility] Department [place] [address] * Allergen Pigweed, rough (weed) IgE (08/18/2024 3:01 PM CDT) Pigweed rough IgE <0.10 0.00 - 0.34 kUnits/L Blood 08/18/2024 3:01 PM CDT 08/18/2024 6:01 PM CDT Niesha Olivarez MD LAB BLOOD ORDERABLES Final Result Performing Organization Address City/[facility]/ZIP Co de Phone Number [facility] Department [place] [address] * Allergen Nettle (weed) IgE (08/18/2024 3:01 PM CDT) Nettle IgE <0.10 0.00 - 0.34 kUnits/L Blood 08/18/2024 3:01 PM CDT 08/18/2024 6:01 PM CDT Niesha Olivarez MD LAB BLOOD ORDERABLES Final Result Performing Organization Address [facility] Co de Phone Number [facility] [place] [address] * Allergen Castro's quarter (weed) IgE (08/18/2024 3:01 PM CDT) Castro's quarters IgE <0.10 0.00 - 0.34 kUnits/L Blood 08/18/2024 3:01 PM CDT 08/18/2024 6:01 PM CDT Niesha Olivarez MD LAB BLOOD ORDERABLES Final Result Performing Organization Address [facility] Co de Phone Number [facility] Department [place] [address] * Allergen Rigoberto grass (grass) IgE (08/18/2024 3:01 PM CDT) Rigoberto grass IgE <0.10 0.00 - 0.34 kUnits/L Blood 08/18/2024 3:01 PM CDT 08/18/2024 6:01 PM CDT Niesha Olivarez MD LAB BLOOD ORDERABLES Final Result Performing Organization Address City/[facility] Co de Phone Number [facility] [place] [address] * Allergen Parker grass (grass) IgE (08/18/2024 3:01 PM CDT) Parker grass IgE <0.10 0.00 - 0.34 kUnits/L Blood 08/18/2024 3:01 PM CDT 08/18/2024 6:01 PM CDT Niesha Olivarez MD LAB BLOOD ORDERABLES Final Result Performing Organization Address [facility] Co de Phone Number [facility] [place] [address] * Allergen Windom (tree) IgE (08/18/2024 3:01 PM CDT) [place]om (tree) IgE <0.10 0.00 - 0.34 kUnits/L Blood 08/18/2024 3:01 PM CDT 08/18/2024 6:01 PM CDT Result [facility] Niesha Olivarez MD LAB BLOOD ORDERABLES Final Result Performing Organization Address [facility] Co de Phone Number [facility] Department [place] [address] * Allergen [place] citizen [place] (tree) IgE (08/18/2024 3:01 PM CDT) [place] IgE <0.10 0.00 - 0.34 kUnits/L Blood 08/18/2024 3:01 PM CDT 08/18/2024 6:01 PM CDT Result [facility] Niesha Olivarez MD LAB BLOOD ORDERABLES Final Result Performing Organization Address [facility] [place] [address] * Allergen Maple/Box elder (tree) IgE (08/18/2024 3:01 PM CDT) Maple/box elder IgE <0.10 0.00 - 0.34 kUnits/L Blood 08/18/2024 3:01 PM CDT 08/18/2024 6:01 PM CDT Niesha Olivarez MD LAB BLOOD ORDERABLES Final Result Performing Organization Address City/[facility] Co de Phone [facility] [place] [address] * Allergen Tea (food) IgE (08/18/2024 3:01 PM CDT) Tea IgE <0.10 0.00 - 0.34 kUnits/L Blood 08/18/2024 3:01 PM CDT 08/18/2024 6:01 PM CDT Niesha Olivarez MD LAB BLOOD ORDERABLES Final Result Performing Organization Address [facility] Co de Phone Number [facility] [place] [address] * Allergen [place] red (tree) IgE (08/18/2024 3:01 PM CDT) [place] IgE <0.10 0.00 - 0.34 kUnits/L Blood 08/18/2024 3:01 PM CDT 08/18/2024 6:01 PM CDT Niesha Olivarez MD LAB BLOOD ORDERABLES Final Result Performing Organization Address [facility] Co de Phone Number [facility] [place] [address] * IgE (08/18/2024 3:01 PM CDT) IgE 38 <=100 IUnits/mL Blood 08/18/2024 3:01 PM CDT 08/18/2024 6:01 PM CDT Niesha Olivarez MD LAB BLOOD ORDERABLES Final Result [facility] Department [place] [address] * CT Abdomen Pelvis W Contrast (07/27/2024 [...] by Orlin Anderson M.D. T: Report ID: [id number] Reading Location: [place] [address] Procedure Note Orlin Anderson Jr., MD - [...] by Orlin Anderson M.D. T: Report ID: [id number] Reading Location: [place] [address] Carlos Londono MD IMG CT PROCEDURES Final [...] Clint Garcia M.D. KT T: Report ID: [id number] Reading Location: [id number] Procedure Note Clint Garcia MD - 07/06/2024 [...] Clint Garcia M.D. KT T: Report ID: [id number] Reading Location: [id number] Paul MARKS IMG CT PROCEDURES Final Resu [...] Clint Garcia M.D. KT T: Report ID: [id number] Reading Location: [place] [address] Procedure Note Clint Garcia MD - 07/06/2024 [...] Clint Garcia M.D. KT T: Report ID: [id number] Reading Location: [place] [address] us [address] MARKS IMG CT PROCEDURES Final Resu lt * eGFR (07/06/2024 9:00 PM CDT) Pathologist [facility] eGFR >90 >=60 mL/min/1. 73 m2 Comment: [...] NP LAB BLOOD ORDERABLES Fin al Result [facility] [id number] [facility] Department [place] [address] * Differential, auto (07/06/2024 9:00 PM CDT) Neutrophil abs 4.56 1.50 - 6.50 K/cumm Imm gran abs 0.02 0.00 - 0.10 K/cumm [facility] Lymphocyte abs 2.88 0.80 - 3.30 K/cumm [facility] Monocyte abs 0.65 0.20 - 0.80 K/cumm [facility] Eosinophil abs 0.11 0.00 - 0.50 K/cumm [facility] Basophil abs 0.04 0.00 - 0.10 K/cumm [facility] Neutrophil pct 55.2 % [facility] Comment: Interpretive Data Percent cell count reference ranges are not reported, since discordance with absolute values may lead to misinterpretation of CBC data. Current Interpretive Data was last revised on 2017. Imm gran pct 0.2 % [facility] Comment: Interpretive Data Percent cell count reference ranges are not reported, since discordance with absolute values may lead to misinterpretation of CBC data. Current Interpretive Data was last revised on 2017. Lymphocyte pct 34.9 % [facility] Comment: Interpretive Data Percent cell count reference ranges are not reported, since discordance with absolute values may lead to misinterpretation of CBC data. Current Interpretive Data was last revised on 2017. Monocyte pct 7.9 % [facility] Comment: Interpretive Data Percent cell count reference ranges are not reported, since discordance with absolute values may lead to misinterpretation of CBC data. Current Interpretive Data was last revised on 2017. Eosinophil pct 1.3 % [facility] Comment: Interpretive Data Percent cell count reference ranges are not reported, since discordance with absolute values may lead to misinterpretation of CBC data. Current Interpretive Data was last revised on 2017. Basophil pct 0.5 % [facility] Comment: Interpretive Data Percent cell count reference ranges are not reported, since discordance with absolute values may lead to misinterpretation of CBC data. Current Interpretive Data was last revised on 2017. Blood 07/06/2024 9:00 PM CDT 07/06/2024 9:03 PM CDT us Angie Espinal NP LAB BLOOD ORDERABLES Fin al Result [facility] [address] [facility] Department [place] [address] * CBC with auto differential (07/06/2024 9:00 PM CDT) [facility] WBC 8.26 3.80 - 9.90 K/cumm Hgb 13.6 11.9 - 15.5 g/dL [facility] Hct 40.4 35.6 - 45.5 % [facility] Plt 266 150 - 400 K/cumm [facility] MPV 9.6 9.1 - 12.3 fL [facility] RBC 4.93 3.90 - 5.20 M/cumm [facility] MCV 81.9 81.3 - 96.4 fL [facility] MCH 27.6 27.1 - 33.3 pg [facility] MCHC 33.7 32.3 - 35.7 g/dL [facility] RDW CV 12.6 11.1 - 14.9 % [facility] RDW SD 37.6 35.7 - 48.1 fL [facility] NRBC abs 0.00 0.00 - 0.01 K/cumm [facility] Blood 07/06/2024 9:00 PM CDT 07/06/2024 9:03 PM CDT Angie Espinal [employer] LAB BLOOD ORDERABLES Fin al Result [address] Department [place] [address] * Comprehensive metabolic panel (07/06/2024 9:00 PM CDT) [facility] Sodium 139 135 - 145 mmol/L Potassium, pl 4.0 3.3 - 4.9 mmol/L [facility] Comment:Hemolyzed; Potassium value may be falsely elevated by as much as 1.0 mmol/L. Suggest redraw and reanalysis. Chloride 104 97 - 110 mmol/L [facility] CO2 23 22 - 32 mmol/L [facility] Anion gap 12 2 - 15 mmol/L [facility] BUN 13 6 - 25 mg/dL [facility] Creatinine 0.75 0.60 - 1.10 mg/dL [facility] Glucose 93 70 - 199 mg/dL [facility] Comment: Interpretive Data Fasting glucose >/= [...] 2022. Calcium 9.3 8.5 - 10.3 mg/dL [facility] Bilirubin, total 0.2 0.1 - 1.2 mg/dL [facility] Protein, pl 7.3 6.5 - 8.5 g/dL [facility] Albumin 4.2 3.5 - 5.0 g/dL [facility] Alk phos 85 40 - 130 Units/L [facility] ALT 15 7 - 45 Units/L [facility] AST 20 10 - 45 Units/L [facility] Blood 07/06/2024 9:00 PM CDT 07/06/2024 9:03 PM CDT Angie Espinal NP LAB BLOOD ORDERABLES Fin al Result [facility] [address] [facility] Department [place] [address] * POCT hCG, urine (07/06/2024 8:49 PM CDT) [facility] HCG, ur, POC Negative Negative Lot Number [id number] QC Backgroud Clear Acceptable QC Control Line Acceptable Urine 07/06/2024 8:49 PM CDT Angie Espinal NP POINT OF CARE TEST ORDER MICHELLE Final Result * N. gonorrhoeae/C. trachomatis Amplification Urine (07/16/2021 2:14 PM CDT) [facility] C. trachomatis Not detected Not detected [facility] N. gonorrhoeae Not detected Not detected [facility] Comment: Testing performed by the [facility]. This assay detects Chlamydia trachomatis and Neisseria gonorrhoeae by nucleic acid amplification testing (NAAT). This test is approved by the [place] Food and Drug Administration and the performance characteristics have been verified by the laboratory. The performance characteristics of this test have not been evaluated in women or individuals less than 16 years of age. Urine (None) 07/16/2021 2:1 4 PM CDT 07/16/2021 8:49 PM CDT Denis Nava MD LAB MICROBIOLOGY - GENERAL ORDERABLES Final Result [facility] [id number] Department [place] [address] from Last 3 Months or Most Recently Relevant to Health Maintenance [place] [employer] [place] [employer] [place] [employer] [place] Member Subscriber Plan / Payer (Ef fective 2007-Present) Name:Rakesh Margarette Relation to Subscriber:Child Name:MARGARETTE CAMERON Date of :2000 (Home) Address: [address] [place] [address] Payer ID:[id number] (NAIC) Type:[employer] Address: [id number] [place] [id number] Care Teams Medical Staff Specialist Relationship Specialty Start Date End Date Denis Nava MD [address] [place] [address] PCP - General Family Medicine 07/16/21 Gordo Rivera MD [address] [address] Endocrinology Diabetes & Metabolism 07/16/21
--- OUTSIDE RECORDS SUMMARY | 2024-10-05 10:02 | XMS_ITS | Clinical Summary ---
Author Organization [address] Address [address] [place] [id number] Care Team Providers Care Collection Teller Name Role Phone Denis Nava MD Primary Care Provider [phone] Gordo Rivera MD Unavailable [phone] Allergies No known active allergies Medications [...] reflux disease) 5 PMDD (premenstrual dysphoric disorder) 5 Vasovagal syncope 08/18/2024 Anxiety and depression 08/18/2024 [...] at this time. Encounter for medical examin emilie to establish care 07/16/2021 08/18/2024 Assessment & [...] Description 09/28/2024 8:30 AM CDT Procedure visit [facility] [address] [place] [phone] Niesha Olivarez MD Adverse food reaction, subsequent encounter (Primary Dx); Throat tightness; Non-allergic rhinitis 09/10/2024 Telephone [facility] [address] [place] [phone] Ashley Smith RN 09/06/2024 Telephone [facility] [address] [place] [phone] Ashley Smith RN 08/31/2024 Telephone [facility] [address] [place] [phone] Ashley Smith RN 08/23/2024 Results Follow-Up [facility] [address] [facility] [address] [place] [address] Niesha Olivarez MD IgE 08/18/2024 5:05 PM CDT - 08/18/2024 11:59 PM CDT Hospital Encounter [facility] [address] [place] [address] Discharge Disposition: Discharge to home or self care 08/18/2024 3:00 PM CDT Lab [facility] [address] [place] [address] Adverse food reaction, initial encounter; Allergic rhinitis, unspecified seasonality, unspecified trigger 08/18/2024 2:00 PM CDT Office Visit [facility] [address] [facility] [address] [place] [address] Niesha Olivarez MD Adverse food reaction, initial encounter (Primary Dx); Allergic rhinitis, unspecified seasonality, unspecified trigger 07/27/2024 1:46 PM CDT - 07/27/2024 11:59 PM CDT Hospital [facility] [address] [place] [address] Diarrhea, unspecified type Discharge Disposition: Discharge to home or self care 07/06/2024 11:08 PM CDT - 07/06/2024 11:50 PM CDT Emergency [facility] [address] [place] [address] Dysphagia, unspecified type (Primary Dx) Discharge Disposition: [...] 09/28/2024 8:31 AM CDT Plan of Treatment Health Maintenance [...] 2023-2 5 season) 2023 07/01/2020 Influenza Vaccine (#1) 2024 Hepatitis B Screening Completed 01/09/2001 , 2000, 2000 Pneumococcal vaccine <65 Completed 003, 03/12/2001, 02/04/2001, Additional history exists Varicella Vaccines Completed 10/01/2011, 11/16/2001 Procedures Procedure Name Priority Date/Time Associated Diagnosis Comments ALLERGY SKIN TESTS ALLERGENS, EACH Routine 09/28/2024 8:25 AM CDT Adverse food reaction, subsequent encounter Non-allergic rhinitis BLOOD MISC TO [place] Routine 08/18/2024 3: 01 PM CDT IGE [...] rhinitis, unspecified seasonality, unspecified trigger ALLERGEN SYCAMORE PANAMANIAN (TREE) IGE Routine 08/18/2024 3:01 PM CDT [...] rhinitis, unspecified seasonality, unspecified trigger ALLERGEN PLANTAIN BELARUSIAN (WEED) IGE Routine 08/18/2024 3:01 PM CDT [...] rhinitis, unspecified seasonality, unspecified trigger ALLERGEN COCKROACH PANAMANIAN (INSECT) IGE Routine 08/18/2024 3:01 PM CDT [...] tests allergens, each (09/28/2024 8:25 AM CDT) us Niesha Olivarez MD IN CLINIC/BEDSIDE ORDERABLE S Edited Result - Final * Allergen Peanut component 6 (food) IgE (08/18/2024 3:01 PM CDT) Peanut comp 6 IgE <0.10 0.00 - 0.34 kUnits/L Blood 08/18/2024 3:01 PM CDT 08/18/2024 6:01 PM CDT Result [facility] Niesha Olivarez MD LAB BLOOD ORDERABLES Final Result Performing Organization Address City/[facility]/ZIP Co de Phone Number [facility] [place] [address] * Allergen Rat mix (animal) IgE (08/18/2024 3:01 PM CDT) Rat mix IgE <0.10 0.00 - 0.34 kUnits/L Blood 08/18/2024 3:01 PM CDT 08/18/2024 6:01 PM CDT Result [facility] Niesha Olivarez MD LAB BLOOD ORDERABLES Final Result Performing Organization Address City/[facility] Co de Phone Number [facility] [place] [address] * Allergen Mouse mix (animal) IgE (08/18/2024 3:01 PM CDT) Mouse mix IgE <0.10 0.00 - 0.34 kUnits/L Blood 08/18/2024 3:01 PM CDT 08/18/2024 6:01 PM CDT Result [facility] Niesha Olivarez MD LAB BLOOD ORDERABLES Final Result Performing Organization Address City/[facility]/ZIP Co de Phone Number [facility] [place] [address] * BLOOD MISC TO [place] (08/18/2024 3:01 PM CDT) Test name, chem FZCCE Souleymane IgE Mobile ref Lab Misc See Footnote [facility] MARION Comment: Test Result Flag Unit RefValue Zucchini IgE <0.35 kU/L <0.35 Class 0 CLASS INTERPRETATION: <0.35 kU/L=0, Below Detection; 0.35-0.69 kU/L= 1, Low Positive; 0.70-3.49 kU/L= 2, Moderate Positive; 3.50-17.49 kU/L= 3, Positive; 17.50-49.99 kU/L= 4, Strong Positive; >49.99 kU/L= 5, Very Strong Positive *This test was developed and its performance characteristics determined by [facility]. It has not been cleared or approved by the U.S. Food and Drug Administration. FLAG Interpretation: A = Abnormal, H = High, L = Low Test Performed by: [facility] [id number] [place] [address] Blood 08/18/2024 3:01 PM CDT 08/18/2024 7:30 PM CDT Niesha Olivarez MD LAB BLOOD ORDERABLES Final Result [facility] [place] [address] Mobile ref Lab * Allergen Peanut component 9 (food) IgE (08/18/2024 3:01 PM CDT) Peanut comp 9 IgE <0.10 0.00 - 0.34 kUnits/L Blood 08/18/2024 3:01 PM CDT 08/18/2024 6:01 PM CDT Result [facility] Niesha Olivarez MD LAB BLOOD ORDERABLES Final Result Performing Organization Address [facility] Co de Phone Number [facility] [place] [address] * Allergen Peanut component 8 (food) IgE (08/18/2024 3:01 PM CDT) Peanut comp 8 IgE <0.10 0.00 - 0.34 kUnits/L Blood 08/18/2024 3:01 PM CDT 08/18/2024 6:01 PM CDT Result [facility] Niesha Olivarez MD LAB BLOOD ORDERABLES Final Result Performing Organization Address [facility] de Phone Number [facility] [place] [address] * Allergen Peanut component 3 (food) IgE (08/18/2024 3:01 PM CDT) Peanut comp 3 IgE <0.10 0.00 - 0.34 kUnits/L Blood 08/18/2024 3:01 PM CDT 08/18/2024 6:01 PM CDT Result [facility] Niesha Olivarez MD LAB BLOOD ORDERABLES Final Result Performing Organization Address [facility] Co de Phone Number [facility] [place] [address] * Allergen Peanut component 2 (food) IgE (08/18/2024 3:01 PM CDT) Peanut comp 2 IgE <0.10 0.00 - 0.34 kUnits/L Blood 08/18/2024 3:01 PM CDT 08/18/2024 6:01 PM CDT Result [facility] Niesha Olivarez MD LAB BLOOD ORDERABLES Final Result Performing Organization Address City/[facility] Co de Phone Number [facility] [place] [address] * Allergen Peanut component 1 (food) IgE (08/18/2024 3:01 PM CDT) Peanut comp 1 IgE <0.10 0.00 - 0.34 kUnits/L Blood 08/18/2024 3:01 PM CDT 08/18/2024 6:01 PM CDT Niesha Olivarez MD LAB BLOOD ORDERABLES Final Result Performing Organization Address [facility] Co de Phone Number [facility] [place] [address] * Allergen Penicillium chrysogenum (mold) IgE (08/18/2024 3:01 PM CDT) Penicillium chrysogenum IgE <0.10 0.00 - 0.34 kUnits/L Blood 08/18/2024 3:01 PM CDT 08/18/2024 6:01 PM CDT Niesha Olivarez MD LAB BLOOD ORDERABLES Final Result Performing Organization Address City/[facility] Co de Phone Number [facility] Department [place] [address] * Allergen [place] (tree) IgE (08/18/2024 3:01 PM CDT) [place] IgE <0.10 0.00 - 0.34 kUnits/L Blood 08/18/2024 3:01 PM CDT 08/18/2024 6:01 PM CDT Niesha Olivarez MD LAB BLOOD ORDERABLES Final Result Performing Organization Address City/[facility]/ZIP Co de Phone Number [facility] [place] [address] * Allergen Mountain juniper (tree) IgE (08/18/2024 3:01 PM CDT) Mountain juniper IgE <0.10 0.00 - 0.34 kUnits/L Blood 08/18/2024 3:01 PM CDT 08/18/2024 6:01 PM CDT Niesha Olivarez MD LAB BLOOD ORDERAB[place] [address] * Allergen [place] grass (grass) IgE (08/18/2024 3:01 PM CDT) [place] grass IgE <0.10 0.00 - 0.34 kUnits/L Blood 08/18/2024 3:01 PM CDT 08/18/2024 6:01 PM CDT Niesha Olivarez MD LAB BLOOD ORDERABLES Final Result [facility] [address] [place] [address] * Allergen Plantain nauruan (weed) IgE (08/18/2024 3:01 PM CDT) Plantain nauruan IgE <0.10 0.00 - 0.34 kUnits/L Blood 08/18/2024 3:01 PM CDT 08/18/2024 6:01 PM CDT Niesha Olivarez MD LAB BLOOD ORDERABLES Final Result [facility] [place] [address] * Allergen Potato (food) IgE (08/18/2024 3:01 PM CDT) Potato IgE <0.10 0.00 - 0.34 kUnits/L Blood 08/18/2024 3:01 PM CDT 08/18/2024 6:01 PM CDT Niesha Olivarez MD LAB BLOOD ORDERABLES Final Result Performing Organization Address City/[facility]/ZIP Co de Phone Number [facility] [place] [address] * Allergen Anchorage (food) IgE (08/18/2024 3:01 PM CDT) [place] IgE <0.10 0.00 - 0.34 kUnits/L Blood 08/18/2024 3:01 PM CDT 08/18/2024 6:01 PM CDT Niesha Olivarez MD LAB BLOOD ORDERABLES Final Result Performing Organization Address City/[facility] Co de Phone Number [facility] [place] [address] * Allergen Tomato (food) IgE (08/18/2024 3:01 PM CDT) Tomato IgE <0.10 0.00 - 0.34 kUnits/L Blood 08/18/2024 3:01 PM CDT 08/18/2024 6:01 PM CDT Niesha Olivarez MD LAB BLOOD ORDERABLES Final Result Performing Organization Address City/[facility] Co de Phone Number [facility] [place] [address] * Allergen Deep Water (food) IgE (08/18/2024 3:01 PM CDT) Deep Water IgE <0.10 0.00 - 0.34 kUnits/L Blood 08/18/2024 3:01 PM CDT 08/18/2024 6:01 PM CDT Niesha Olivarez MD LAB BLOOD ORDERABLES Final Result Performing Organization Address City/[facility] Co de Phone Number [facility] [place] [address] * Allergen Elm (tree) IgE (08/18/2024 3:01 PM CDT) Elm IgE <0.10 0.00 - 0.34 kUnits/L Blood 08/18/2024 3:01 PM CDT 08/18/2024 6:01 PM CDT Niesha Olivarez MD LAB BLOOD ORDERABLES Final Result Performing Organization Address [facility] Co de Phone Number [facility] [place] [address] * Allergen Cladosporium herbarum (mold) IgE (08/18/2024 3:01 PM CDT) Cladosporium herbarum IgE <0.10 0.00 - 0.34 kUnits/L Blood 08/18/2024 3:01 PM CDT 08/18/2024 6:01 PM CDT Niesha Olivarez MD LAB BLOOD ORDERABLES Final Result Performing Organization Address City/[facility] Co de Phone Number [facility] [place] [address] * Allergen Birch common silver (tree) IgE (08/18/2024 3:01 PM CDT) Birch common silver IgE <0.10 0.00 - 0.34 kUnits/L Blood 08/18/2024 3:01 PM CDT 08/18/2024 6:01 PM CDT Niesha Olivarez MD LAB BLOOD ORDERABLES Final Result Performing Organization Address [facility] Co de Phone Number [facility] [place] [address] * Allergen Alternaria tenuis (mold) IgE (08/18/2024 3:01 PM CDT) Alternaria tenius IgE <0.10 0.00 - 0.34 kUnits/L Blood 08/18/2024 3:01 PM CDT 08/18/2024 6:01 PM CDT Niesha Olivarez MD LAB BLOOD ORDERABLES Final Result Performing Organization Address [facility] Co de Phone Number [facility] [place] [address] * Allergen Aspergillus fumigatus (mold) IgE (08/18/2024 3:01 PM CDT) Aspergillus fumigatus IgE <0.10 0.00 - 0.34 kUnits/L Blood 08/18/2024 3:01 PM CDT 08/18/2024 6:01 PM CDT Niesha Olivarez MD LAB BLOOD ORDERABLES Final Result Performing Organization Address [facility] [place] [address] * Allergen Dermatophagoides pteronyssinus (insect) IgE (08/18/2024 3:01 PM CDT) Dermatophyton pteronyssinus IgE <0.10 0.00 - 0.34 kUnits/L Blood 08/18/2024 3:01 PM CDT 08/18/2024 6:01 PM CDT Niesha Olivarez MD LAB BLOOD ORDERABLES Final Result Performing Organization Address [facility] Co de Phone Number [facility] [place] [address] * Allergen Dermatophagoides farniae (insect) IgE (08/18/2024 3:01 PM CDT) Dermatophyton farinae IgE <0.10 0.00 - 0.34 kUnits/L Blood 08/18/2024 3:01 PM CDT 08/18/2024 6:01 PM CDT Niesha Olivarez MD LAB BLOOD ORDERABLES Final Result Performing Organization Address [facility] Co de Phone Number [facility] [place] [address] * Allergen Peanut (food) IgE (08/18/2024 3:01 PM CDT) Peanut IgE <0.10 0.00 - 0.34 kUnits/L Blood 08/18/2024 3:01 PM CDT 08/18/2024 6:01 PM CDT Niesha Olivarez MD LAB BLOOD ORDERABLES Final Result Performing Organization Address [facility] Co de Phone Number [facility] [place] [address] * Allergen Epithelia/dander dog (animal) IgE (08/18/2024 3:01 PM CDT) Dog dander IgE <0.10 0.00 - 0.34 kUnits/L Blood 08/18/2024 3:01 PM CDT 08/18/2024 6:01 PM CDT Niesha Olivarez MD LAB BLOOD ORDERABLES Final Result Performing Organization Address [facility] Co de Phone Number [facility] [place] [address] * Allergen Pineapple (food) IgE (08/18/2024 3:01 PM CDT) Pineapple IgE <0.10 0.00 - 0.34 kUnits/L Blood 08/18/2024 3:01 PM CDT 08/18/2024 6:01 PM CDT Niesha Olivarez MD LAB BLOOD ORDERABLES Final Result Performing Organization Address [facility] de Phone Number [facility] [place] [address] * Allergen Cockroach new zealander (insect) IgE (08/18/2024 3:01 PM CDT) Cockroach IgE <0.10 0.00 - 0.34 kUnits/L Blood 08/18/2024 3:01 PM CDT 08/18/2024 6:01 PM CDT Result [facility] Niesha Olivarez MD LAB BLOOD ORDERABLES Final Result Performing Organization Address [facility] Co de Phone Number [facility] [place] [address] * Allergen Epithelia/dander cat (animal) IgE (08/18/2024 3:01 PM CDT) Cat dander IgE <0.10 0.00 - 0.34 kUnits/L Blood 08/18/2024 3:01 PM CDT 08/18/2024 6:01 PM CDT Niesha Olivarez MD LAB BLOOD ORDERABLES Final Result Performing Organization Address [facility] de Phone Number [facility] [place] [address] * Allergen Ragweed short/common (weed) IgE (08/18/2024 3:01 PM CDT) Ragweed common IgE <0.10 0.00 - 0.34 kUnits/L Blood 08/18/2024 3:01 PM CDT 08/18/2024 6:01 PM CDT Niesha Olivarez MD LAB BLOOD ORDERABLES Final Result Performing Organization Address [facility] [place] [address] * Allergen Pigweed, rough (weed) IgE (08/18/2024 3:01 PM CDT) Pigweed rough IgE <0.10 0.00 - 0.34 kUnits/L Blood 08/18/2024 3:01 PM CDT 08/18/2024 6:01 PM CDT Result [facility] Niesha Olivarez MD LAB BLOOD ORDERABLES Final Result Performing Organization Address [facility] de Phone Number [facility] [place] [address] * Allergen Nettle (weed) IgE (08/18/2024 3:01 PM CDT) Nettle IgE <0.10 0.00 - 0.34 kUnits/L Blood 08/18/2024 3:01 PM CDT 08/18/2024 6:01 PM CDT Niesha Olivarez MD LAB BLOOD ORDERABLES Final Result Performing Organization Address [facility] Co de Phone Number [facility] [place] [address] * Allergen Castro's quarter (weed) IgE (08/18/2024 3:01 PM CDT) Castro's quarters IgE <0.10 0.00 - 0.34 kUnits/L Blood 08/18/2024 3:01 PM CDT 08/18/2024 6:01 PM CDT Niesha Olivarez MD LAB BLOOD ORDERABLES Final Result Performing Organization Address City/[facility] [place] [address] * Allergen Rigoberto grass (grass) IgE (08/18/2024 3:01 PM CDT) Rigoberto grass IgE <0.10 0.00 - 0.34 kUnits/L Blood 08/18/2024 3:01 PM CDT 08/18/2024 6:01 PM CDT Result [facility] Niesha Olivarez MD LAB BLOOD ORDERABLES Final Result Performing Organization Address City/[facility] [place] [address] * Allergen [place] grass (grass) IgE (08/18/2024 3:01 PM CDT) Parker grass IgE <0.10 0.00 - 0.34 kUnits/L Blood 08/18/2024 3:01 PM CDT 08/18/2024 6:01 PM CDT Niesha Olivarez MD LAB BLOOD ORDERABLES Final Result Performing Organization Address City/[facility] Co de Phone Number [facility] [place] [address] * Allergen [place] (tree) IgE (08/18/2024 3:01 PM CDT) [place] (tree) IgE <0.10 0.00 - 0.34 kUnits/L Blood 08/18/2024 3:01 PM CDT 08/18/2024 6:01 PM CDT Niesha Olivarez MD LAB BLOOD ORDERABLES Final Result [facility] [place] [address] * Allergen [place] new zealander (tree) IgE (08/18/2024 3:01 PM CDT) Pathologist [facility] [place] IgE <0.10 0.00 - 0.34 kUnits/L Blood 08/18/2024 3:01 PM CDT 08/18/2024 6:01 PM CDT Niesha Olivarez MD LAB BLOOD ORDERABLES Final Result Performing Organization Address City/[facility]/ZIP Co de Phone Number [facility] [place] [address] * Allergen Maple/Box elder (tree) IgE (08/18/2024 3:01 PM CDT) Pathologist [facility] Maple/box elder IgE <0.10 0.00 - 0.34 kUnits/L Blood 08/18/2024 3:01 PM CDT 08/18/2024 6:01 PM CDT Niesha Olivarez MD LAB BLOOD ORDERABLES Final Result [facility] [place] [address] * Allergen Tea (food) IgE (08/18/2024 3:01 PM CDT) Pathologist [facility] Tea IgE <0.10 0.00 - 0.34 kUnits/L Blood 08/18/2024 3:01 PM CDT 08/18/2024 6:01 PM CDT Niesha Olivarez MD LAB BLOOD ORDERABLES Final Result Performing Organization Address [facility] Co de Phone Number [facility] [place] [address] * Allergen [place] red (tree) IgE (08/18/2024 3:01 PM CDT) Pathologist [facility] [place] IgE <0.10 0.00 - 0.34 kUnits/L Blood 08/18/2024 3:01 PM CDT 08/18/2024 6:01 PM CDT Niesha Olivarez MD LAB BLOOD ORDERABLES Final Result Performing Organization Address [facility] de Phone Number [facility] [place] [address] * IgE (08/18/2024 3:01 PM CDT) [facility] IgE 38 <=100 IUnits/mL Blood 08/18/2024 3:01 PM CDT 08/18/2024 6:01 PM CDT Niesha Olivarez MD LAB BLOOD ORDERABLES Final Result Performing Organization Address [facility] [place] [address] * CT Abdomen Pelvis W Contrast (07/27/2024 [...] by Orlin Anderson M.D. T: Report ID: [id number] Reading Location: [place] [address] Procedure Note Orlin Anderson Jr., MD - [...] by Orlin Anderson M.D. T: Report ID: [id number] Reading Location: [place] [address] Carlos Londono MD IMG CT PROCEDURES Final [...] Clint Garcia M.D. KT T: Report ID: [id number] Reading Location: [id number] Procedure Note Clint Garcia MD - 07/06/2024 [...] Clint Garcia M.D. KT T: Report ID: [id number] Reading Location: [place] [address] PROCEDURES Final Resu [...] Clint Garcia M.D. KT T: Report ID: [id number] Reading Location: [place] [address] Procedure Note Clint Garcia MD - 07/06/2024 [...] Clint Garcia M.D. KT T: Report ID: [id number] Reading Location: [id number] [place] Paul MARKS IMG CT PROCEDURES Final Resu lt * eGFR (07/06/2024 9:00 PM CDT) [facility] eGFR >90 >=60 mL/min/1. 73 m2 Comment: [...] NP LAB BLOOD ORDERABLES Fin al Result [facility] [address] [facility] Department of Laboratories [place], [place] [id number] * Differential, auto (07/06/2024 9:00 PM CDT) [facility] Neutrophil abs 4.56 1.50 - 6.50 K/cumm Imm gran abs 0.02 0.00 - 0.10 K/cumm [facility] Lymphocyte abs 2.88 0.80 - 3.30 K/cumm [facility] Monocyte abs 0.65 0.20 - 0.80 K/cumm [facility] Eosinophil abs 0.11 0.00 - 0.50 K/cumm [facility] Basophil abs 0.04 0.00 - 0.10 K/cumm [facility] Neutrophil pct 55.2 % [facility] Comment: Interpretive Data Percent cell count reference ranges are not reported, since discordance with absolute values may lead to misinterpretation of CBC data. Current Interpretive Data was last revised on 2017. Imm gran pct 0.2 % [facility] Comment: Interpretive Data Percent cell count reference ranges are not reported, since discordance with absolute values may lead to misinterpretation of CBC data. Current Interpretive Data was last revised on 2017. Lymphocyte pct 34.9 % [facility] Comment: Interpretive Data Percent cell count reference ranges are not reported, since discordance with absolute values may lead to misinterpretation of CBC data. Current Interpretive Data was last revised on 2017. Monocyte pct 7.9 % [facility] Comment: Interpretive Data Percent cell count reference ranges are not reported, since discordance with absolute values may lead to misinterpretation of CBC data. Current Interpretive Data was last revised on 2017. Eosinophil pct 1.3 % [facility] Comment: Interpretive Data Percent cell count reference ranges are not reported, since discordance with absolute values may lead to misinterpretation of CBC data. Current Interpretive Data was last revised on 2017. Basophil pct 0.5 % [facility] Comment: Interpretive Data Percent cell count reference ranges are not reported, since discordance with absolute values may lead to misinterpretation of CBC data. Current Interpretive Data was last revised on 2017. Blood 07/06/2024 9:00 PM CDT 07/06/2024 9:03 PM CDT Angie Espinal [employer] REPORTER LAB BLOOD ORDERABLES Fin al Result [facility] [address] [facility] Department [place] [address] * CBC with auto differential (07/06/2024 9:00 PM CDT) WBC 8.26 3.80 - 9.90 K/cumm Hgb 13.6 11.9 - 15.5 g/dL [facility] Hct 40.4 35.6 - 45.5 % [facility] Plt 266 150 - 400 K/cumm [facility] MPV 9.6 9.1 - 12.3 fL [facility] RBC 4.93 3.90 - 5.20 M/cumm [facility] MCV 81.9 81.3 - 96.4 fL [facility] MCH 27.6 27.1 - 33.3 pg [facility] MCHC 33.7 32.3 - 35.7 g/dL [facility] RDW CV 12.6 11.1 - 14.9 % [facility] RDW SD 37.6 35.7 - 48.1 fL [facility] NRBC abs 0.00 0.00 - 0.01 K/cumm [facility] Blood 07/06/2024 9:00 PM CDT 07/06/2024 9:03 PM CDT us Angie Espinal NP LAB BLOOD ORDERABLES Fin al Result [facility] [address] [facility] Department [place] [address] * Comprehensive metabolic panel (07/06/2024 9:00 PM CDT) Sodium 139 135 - 145 mmol/L Potassium, pl 4.0 3.3 - 4.9 mmol/L [facility] Comment:Hemolyzed; Potassium value may be falsely elevated by as much as 1.0 mmol/L. Suggest redraw and reanalysis. Chloride 104 97 - 110 mmol/L [facility] CO2 23 22 - 32 mmol/L [facility] Anion gap 12 2 - 15 mmol/L [facility] BUN 13 6 - 25 mg/dL [facility] Creatinine 0.75 0.60 - 1.10 mg/dL [facility] Glucose 93 70 - 199 mg/dL [facility] Comment: Interpretive Data Fasting glucose [...] classification and Diagnosis of Diabetes Diabetes Care 2022; 46: S19-S40. Current interpretive data was last revised 2022. Calcium 9.3 8.5 - 10.3 mg/dL [facility] Bilirubin, total 0.2 0.1 - 1.2 mg/dL [facility] Protein, pl 7.3 6.5 - 8.5 g/dL [facility] Albumin 4.2 3.5 - 5.0 g/dL [facility] Alk phos 85 40 - 130 Units/L [facility] ALT 15 7 - 45 Units/L [facility] AST 20 10 - 45 Units/L [facility] Blood 07/06/2024 9:00 PM CDT 07/06/2024 9:03 PM CDT Angie Espinal NP LAB BLOOD ORDERABLES Fin al Result [facility] [address] [facility] Department [place] [address] * POCT hCG, urine (07/06/2024 8:49 PM CDT) Pathologist [facility] HCG, ur, POC Negative Negative Lot Number [id number] QC Backgroud Clear Acceptable QC Control Line Acceptable Urine 07/06/2024 8:49 PM CDT Angie Espinal NP POINT OF CARE TEST ORDER MICHELLE Final Result * N. gonorrhoeae/C. trachomatis Amplification Urine (07/16/2021 2:14 PM CDT) Pathologist [facility] C. trachomatis Not detected Not detected [facility] N. gonorrhoeae Not detected Not detected [facility] Comment: Testing performed by the [facility]. This assay detects Chlamydia trachomatis [...] GENERAL ORDERABLES Final Result Performing Organization Address City/State/[facility] [place] [phone] [address] Department [place] [address] from Last 3 Months or Most Recently Relevant to Health Maintenance Insurance [place] Member Subscriber Plan / Payer (Ef fective 2007-Present) Name:Margarette Cameron Relation to Subscriber:Child Name:MANDIMARGARETTE Date of :2000 (Home) Address: [address] [place] [address] Payer ID:[id number] (NAIC) Type:BC ALLIANCE Address: [facility] [id number] [place] [phone] Care Teams Collection Teller Relationship Specialty Start Date End Date Denis Nava MD [address] [place] [address] PCP - General Family Medicine 07/16/21 Gordo Rivera MD [address] [address] Endocrinology Diabetes & Metabolism 07/16/21
--- OUTSIDE RECORDS SUMMARY | 2024-10-05 10:02 | XMS_ITS | Encounter Summary ---
Author Organization [facility] Address [address] [place] [address] Phone Care Team Providers Care Senior Linux Unix Engineer Name Role Phone Denis Nava MD Primary Care Provider [phone] Gordo Rivera MD Unavailable [phone] Encounter Details Date Type Department Care Team (Late st Contact Info) Description 08/23/2024 Results Follow-Up [facility] Allergy and Immunology [address] [place] [address] Niesha Olivarez MD [address] [facility] [address] [place] [address] IgE Social History Tobacco Use Types Packs/Day [...] on filedocumented in this encounter Care Teams Senior Linux Unix Engineer Relationship Specialty Start Date End Date Denis Nava MD [address] [place] [id number] PCP - General Family Medicine 07/16/21 Gordo Rivera MD [address] [address] Endocrinology Diabetes & Metabolism 07/16/21 documented as of this encounter
[2024-10-05 10:36] LABS: Hematocrit 41.9 % (37.0-47.0); Hemoglobin 13.8 g/dL (12.0-15.0); Immature Granulocyte Percent A 2.3 % (0-0.5); Lymphocytes Absolute Auto 1.54 K/mm3 (0.9-3.2); Mean Corpuscular HGB Conc 32.9 g/dl (32-36); Mean Corpuscular Hemoglobin 26.5 pg (26-34); Mean Corpuscular Volume 80.4 fl (80-100); Nucleated Red Blood Cells Absolute Auto 0.000 K/mm3 (0.0-0.012); Nucleated Red Blood Cells Perc 0.0 % (0.0-0.2); Platelet Count Result 310 k/mm3 (150-375); Red Blood Count 5.21 M/mm3 (4.2-5.4); White Blood Count 5.2 K/mm3 (4.5-10.0)
[2024-10-05 11:03] LABS: Alanine Aminotransferase 24 U/L (6-35); Albumin Level 4.5 g/dL (3.5-5.1); Alkaline Phosphatase 77 U/L (38-126); Anion Gap 10 mmol/L (4-12); Aspartate Amino Transferase 31 U/L (14-36); Bilirubin,Total 0.4 mg/dL (0.2-1.3); Blood Urea Nitrogen 12 mg/dL (7-17); Calcium 9.4 mg/dL (8.4-10.2); Carbon Dioxide 27 mmol/L (22-30); Chloride 103 mmol/L (98-107); Cholesterol 178 mg/dL (0-200); Estimated Glomerular Filt Rate > 60; Glucose 92 mg/dL (65-110); HDL Direct 26 mg/dL; Magnesium 2.3 mg/dL (1.6-2.3); Potassium 3.7 mmol/L (3.4-5.0); Sodium 140 mmol/L (137-145); Total Protein 7.8 g/dL (6.3-8.2); Triglycerides 195 mg/dL (<150)
[2024-10-05 11:19] LABS: Hemoglobin A1C 5.5 % (<5.7)
[2024-10-05 11:32] LABS: Thyroid Stimulating Hormone Reflex 2.430 uIU/mL (0.465-4.68)
[2024-10-05 11:56] LABS: Vitamin B12 516.0 pg/mL (239-931)
== END 2024-10-05 09:50 | disposition home or self-care (01) ==
LOC: ANHLAB 09:51
PROVIDERS: PCP Family Medicine; Visit Provider Family Medicine
DX: R42 Dizziness and giddiness (principal); R00.2 Palpitations; R55 Syncope and collapse; R53.83 Other fatigue; Z13.1 Encounter for screening for diabetes mellitus; Z11.59 Encounter for screening for other viral diseases; Z13.6 Encounter for screening for cardiovascular disorders
CPT/HCPCS: 36415; 80053; 80061; 82306; 82607; 83036; 83735; 84443; 85025; 86803